=== PATIENT | male | born 1940 | race Caucasian/White ===

== ENCOUNTER 2016-12-01 10:38 | Inpatient (IN) | payer MEDICARE, OTHER ==
[2016-12-01] MEDS ORDERED: Melatonin 3 MG Tab PO PRN (15:42)
--- NOTE | 2016-12-01 16:06 | PCM.HP ---
H&P History of Present Illness - General Date of Service: 12/01/16 Source of Information: Patient, Family (), Old records ([facility] chart/EMR), Other (Transfer records from [facility] in [place]) History Limitations: Reports: No Limitations - History of Present Illness Initial Comments - Free Text/Narative: The patient was brought to this facility for admission into our swing bed unit via private automobile by his . Note that the patient is status post revision and irrigation of left total knee arthroplasty on 11/23/16 with only plastic components of the arthroplasty removed and replaced with new hardware per history from the patient. He was discharged from [facility] today after extended hospitalization for aggressive IV antibiotic therapy, including oral rifampin and high-dose IV Ancef. 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 The patient denies any chest pain/pressure, heart flutter , dizziness, orthostasis, orthopnea, diaphoresis, paresthesias, recent decreased exercise tolerance, or any other anginal-type symptoms. No recent history of abdominal pain, heartburn, nausea, diarrhea, melena, gross hematochezia, or any food intolerance, including fatty foods, etc.. The patient also denies any recent fever, cough, wheezing, dyspnea, etc.. He denies any current UTI symptoms, although he did have some problems with urinary retention with Demerol therapy in the above hospitalization. the patient is not having any significant pain at this time. Location: Reports: lower extremity, left Quality: Reports: Same as previous episode Improves with: Reports: Rest Worsens with: Reports: Movement Context: Reports: other (As above) Associated Symptoms: Denies: confusion, chest pain, cough, diaphoresis, fever/ chills, loss of appetite, malaise, nausea/vomiting, rash, seizure, shortness of breath, syncope, weakness - Related Data Allergies/Adverse Reactions: Allergies Allergy/AdvReac Type Severity Reaction Status Date / Time hydroxyzine [From Vistaril] Allergy UNKNOWN Verified 05/05/16 12:16 meperidine [From Demerol] Allergy UNKNOWN Verified 05/05/16 12:16 Home Medications: Home Meds Acetaminophen 2 tab PO BID 05/04/16 [History] Allopurinol [Zyloprim] 0.5 tab PO DAILY 05/04/16 [History] Aspirin [Halfprin] 1 tab PO DAILY 05/04/16 [History] Digoxin 1 tab PO QAM 05/04/16 [History] Ferrous Sulfate 1 tab PO QAM 05/04/16 [History] Insulin Detemir [Levemir Flextouch] 8 units SUBCUT QAM 05/04/16 [History] Metoprolol Tartrate 100 mg PO BID 05/04/16 [History] Penicillin V Potassium 4 tab PO ASDIRECTED 05/04/16 [History] Rosuvastatin [Crestor] 0.5 tab PO BEDTIME 05/04/16 [History] Warfarin [Coumadin] 4 mg PO DAILY@1800 05/05/16 [History] Acetaminophen 650 mg PO Q4HR PRN 12/01/16 [History] Aspirin [Ecotrin] 325 mg PO [id number] 12/01/16 [History] Cholecalciferol (Vitamin D3) [Vitamin D3] 2,000 units PO DAILY 12/01/16 [History ] Cholestyramine/Sucrose [Cholestyramine Packet] 4 gm PO DAILY 12/01/16 [History] Diltiazem [Cardizem CD] 180 mg PO BID 12/01/16 [History] Heparin Sodium,Porcine/PF [Heparin Lock Flush 100 Unit/ml] 300 unit IV ASDIRECTED PRN 12/01/16 [History] Heparin Sodium,Porcine/PF [Heparin Lock Flush 100 Unit/ml] 300 unit IV Q12HR 06/09 [History] Melatonin/Pyridoxine HCl (B6) [Melatonin 3 mg Tablet] 3 mg PO BEDTIME PRN [History] Non-Formulary Medication [NF Drug] 2 tab PO DAILY 12/01/16 [History] Polyethylene Glycol 3350 17 gm PO QAM 12/01/16 [History] Sennosides/Docusate Sodium [Senna-Docusate Sodium Tablet] 8.6 - 50 mg PO BID PRN 12/01/16 [History] Sodium Chloride 0.9% [Saline Flush] 10 ml FLUSH ASDIRECTED PRN 12/01/16 [History ] Sodium Chloride 0.9% [Saline Flush] 10 ml FLUSH Q12HR 12/01/16 [History] ceFAZolin [Ancef] 2 gm IV Q8HR 12/01/16 [History] traMADol [Ultram] 50 mg PO QID PRN 12/01/16 [History] Past Medical History HEENT History: Reports: Impaired vision, Other (see below). Denies: Allergic rhinitis, Glaucoma, Hard of hearing, Macular degeneration Other HEENT History: No history of diabetic retinopathy, the patient wears trifocals Cardiovascular History: Reports: Afib, Arrhythmia, Heart murmur, High cholesterol, Hypertension, Pulmonary hypertension, PVD, Other (see below). Denies: Aneurysm, Blood clots/VTE/DVT, CAD, Cardiomyopathy, Heart Failure, SD, PTCA, Stents, Syncope Other Cardiovascular History: Borderline aortic stenosis and mitral valve insufficiency with no significant valvular disease by echocardiogram, mild biatrial enlargement with borderline cardiomegaly but no significant cardiac dysfunction, recurrent atrial fibrillation with rapid ventricular response initially diagnosed on 02/13/98 and current long-term Coumadin therapy, idiopathic myositis in about 2004, dyslipidemia, mild carotid occlusive disease , previous history of first degree AV block, PACs, and sinus arrhythmia on Respiratory History: Reports: Intubation, previous. Denies: Asthma, COPD, Intubation, difficult, PE, Pneumothorax, TB Gastrointestinal History: Reports: Colon polyp, GERD, Hiatal hernia, PUD, Other (see below). Denies: Celiac disease, Cholelithiasis, Chronic constipation, Chronic diarrhea, Diverticulosis, Gastritis, GI bleed, Hepatitis, Inflammatory bowel disease, Irritable bowel syndrome, Jaundice, Pancreatitis Other Gastrointestinal History: umbilical hernia, history of diminutive colonic polyp of the proximal ascending colon on 01/31/13 with subsequent small tubular adenomas x2 one in the distal ascending colon and the other at the hepatic flexure on 05/05/16, history of colitis, polyposis of the gallbladder diagnosed on 05/25/99, fatty liver, benign hepatic cysts Genitourinary History: Reports: Acute renal failure (In November 2016 postoperative at time of total knee arthroplasty revision as below), BPH, Chronic renal insuffiency, Diabetic nephropathy, UTI, recurrent, Other (see below). Denies: Dialysis, Renal calculus, STD, Urinary incontinence Other Genitourinary History: Chronic prostatitis with hematuria, transitional cell cancer as below, diabetic nephropathy with proteinuria bilateral benign renal cysts, rectal dysfunction Musculoskeletal History: Reports: Arthritis, Back pain, chronic, Gout, Neck pain , chronic, Osteoarthritis, Other (see below). Denies: Amputation, Fracture, Osteoporosis, RA, SLE Other Musculoskeletal History: Spinal stenosis of lumbar region (L3-4), sternoclavicular joint subluxation (left) on 07/19/01, left ankle fracture at age 21, idiopathic myositis Neurological History: Reports: Neuropathy, diabetic. Denies: Alzheimers disease , Cerebral aneurysms, Concussion, CVA, Headaches, chronic, Head trauma, Migraines, MS, Seizure, TIA Psychiatric History: Reports: None. Denies: Abuse, victim of, ADD, ADHD, Addiction, Anxiety, Dementia, Depression, Psych Hospitalization(s), PTSD, Suicide attempt, Suicidal ideation Endocrine/Metabolic History: Reports: Diabetes, type II, IDDM. Denies: Hypothyroidism Hematologic History: Reports: Anemia, Iron deficiency, Other (see below). Denies: Blood transfusion(s) Immunologic History: Reports: None. Denies: AIDS, HIV, SLE Oncologic (Cancer) History: Reports: Basal cell carcinoma, Bladder, Other (see below). Denies: Hodgkin's Lymphoma, Leukemia, Malignant melanoma, Metastatic, Non-Hodgkin's Lymphoma, Prostate, Squamous cell carcinoma Other Oncologic History: Basal cell carcinoma of helix- right, transitional cell cancer diagnosed on 09/15/08 Dermatologic History: Denies: Eczema, Psoriasis - Infectious Disease History Infectious Disease History: Reports: Chicken pox, Measles, Other (see below). Denies: C-difficile, Meningitis, Mononucleosis, MRSA, Mumps, Pertussis ( whooping cough), Rheumatic Fever, Rubella, Scarlet fever, Shingles, TB, VRE Other Infectious Disease History: Recurrent postoperative MSSA including sepsis as above - Past Surgical History Head Surgeries/Procedures: Reports: None. Denies: Craniotomy, Shunt HEENT Surgical History: Reports: Adenoidectomy, Oral surgery, Tonsillectomy, Other (see below). Denies: Cataract surgery, Eye surgery, Laser surgery, LASIK , Myringotomy w tube(s), Naso-sinus surgery Other HEENT Surgeries/Procedures: Right upper dental implant, tonsillectomy and adenoidectomy as a child Cardiovascular Surgical History: Reports: None. Denies: Varicose, Vascular surgery Respiratory Surgical History: Reports: None GI Surgical History: Reports: Appendectomy, Colonoscopy, Polypectomy, Other ( see below). Denies: EGD, Hernia, abdominal, Hernia, inguinal, Hernia repair/ other Other GI Surgeries/Procedures: Last colonoscopy on 05/05/16 with polypectomy of tubular adenomas x2 as above, previous Colonoscopy on 01/31/13 with polypectomy as above, appendectomy in 1972 Other Female Surgeries/Procedures: Cystoscopy with bladder biopsy on 10/08/08 Male Surgical History: Reports: Other (see below) Other Male Surgeries/Procedures: Cystoscopy and bladder biopsy on 10/08/08 Endocrine Surgical History: Reports: None Neurological Surgical History: Reports: Discectomy, Lumbar spine, Other (see below). Denies: Spinal fusion, Vertebroplasty Other Neurological Surgeries/Procedures: L3-4 decompression on 02/05/04 Musculoskeletal Surgical History: Reports: Arthroscopic procedure, Joint replacement, Knee replacement, Shoulder surgery, Other (see below). Denies: Carpal tunnel, Ganglion cyst, ORIF Other Musculoskeletal Surgeries/Procedures:: Bilateral knee arthroscopic evaluations initially in September 1997 and then in June 1998, subsequent to bilateral TKA on 12/07/07, subsequent complete 2 stage left TKA revision in April 2009 secondary to refractory MSSA infection with repeat TKA partial revision and irrigation of plastic components only on 11/23/12, initial arthroscopic with conversion to open right shoulder rotator cuff repair on Oncologic Surgical History: Reports: None Dermatological Surgical History: Reports: None - Past Imaging History Past Imaging History: Reports: Cardiac echo (Last thoracic echocardiogram on 11/23 with findings as above and an ejection fraction of 60%, subsequent transesophageal echocardiogram on 11/28/16 with findings not available), Mammogram (10/01/09), Other (see below) (IVP on 09/29/08) Social & Family History - Family History Cardiac: Reports: Arrhythmia, Bypass, CAD, High cholesterol, Hypertension, SD, Other (see below). Denies: Aneurysm, Blood clots/VTE/DVT, PVD/COD Other Cardiac Family History: Father from an SD at age 69, mother with unknown type of cardiac arrhythmia, sister with CABG in her 60s, hypertension in sister, mother with hyperlipidemia GI: Reports: GERD, Other (see below) Other GI Family History: Brother and sister with GERD : Reports: Renal disease/insufficiency, Other (see below) Other Family History: Sister and nephew with benign hematuria Endocrine/Metabolic: Reports: Diabetes, type II, IDDM, Other (see below) Other Endocrine/Metabolic Family History: Brother and sister with IDDM, parents with AODM Oncologic: Reports: Bone, Other (see below) Other Oncologic Family History: Maternal aunt with unknown type of fatal cancer possibly bone cancer in her 50s, maternal cousin with fatal stomach cancer in his 50s, brother with colon cancer at age 58 - Tobacco Use Smoking Status *Q: Never Smoker Smoking Cessation Information Provided To Patient: No Second Hand Smoke Exposure: No Second Hand Smoke Education Provided: No - Caffeine Use Caffeine Use: Reports: Soda (One soda per day, one glass of ice tea per day), Tea. Denies: Coffee, Energy drinks - Alcohol Use Alcohol Use History: Yes Days Per Week of Alcohol Use: 2 (No previous DWIs, problems with alcohol abuse, etc.) Number of Drinks Per Day: 2 (Usually beer) Total Drinks Per Week: 4 Alcohol Use in Last Twelve Months: Yes Alcohol Use Frequency: Socially - Recreational Drug Use Recreational Drug Use: No Drug Use in Last 12 Months: No Recreational Drug Type: Denies: Amphetamines (Speed), Cocaine, Heroin, Inhalants (Glues, Solvents, Aerosols), LSD (Acid), Marijuana/Hashish, Methamphetamine, Morphine - Living Situation & Occupation Living situation: Reports: (1964, 4 children), with family () 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 Denies: Fever, Chills, Weakness, Fatigue, Night Sweats, Diaphoresis, Decreased Appetite, Weight Loss, Weight Gain HEENT: Reports: Glasses. Denies: Dysphasia, Ear Pain, Eye Pain, Headaches, Hearing Changes, Rhinitis, Post Nasal Drip, Sinus Congestion, Vertigo, Visual Changes Pulmonary: Reports: No Symptoms. Denies: Shortness of Breath, Wheezing, Pleuritic Chest Pain, Cough Cardiovascular: Reports: No Symptoms. Denies: Chest Pain, Palpitations, Dyspnea on Exertion, Orthopnea, Edema, Lightheadedness, Syncope, Claudication, Blood Pressure Problem Gastrointestinal: Reports: No Symptoms, Other (Bowel movement yesterday by his history ). Denies: Abdominal Pain, Anorexia, Black Stool, Bloody Stool, Constipation, Diarrhea, Decreased Appetite, Difficulty Swallowing, Hematemesis, Hematochezia, Melena, Nausea, Stool Incontinence, Vomiting Genitourinary: Reports: No Symptoms. Denies: Dysuria, Frequency, Burning, Pain , Urgency, Incontinence, Hematuria, Discharge, Retention, Flank Pain Musculoskeletal: Reports: Joint Pain (Left knee pain-postoperative), Joint Swelling (Left knee). Denies: Neck Pain, Shoulder Pain, Arm Pain, Back Pain, Leg Pain, Muscle Pain, Muscle Stiffness Skin: Reports: Bruising, Wound (Surgical site left knee). Denies: Cyanosis, Pallor, Diaphoresis, Pruritis, Rash Psychiatric: Reports: No Symptoms. Denies: Confusion, Depression, Anxiety, Agitation, Hallucinations Neurological: Reports: Difficulty Walking (Secondary to knee pain and surgery). Denies: Confusion, Dizziness, Numbness, Paresthesia, Tingling, Trouble Speaking, Weakness, Change in Speech, Gait Disturbance Hematologic/Lymphatic: Reports: No Symptoms, Other (Note Coumadin therapy). Denies: Anemia, Easy Bleeding, Easy Bruising Immunologic: Reports: No Symptoms Exam - Exam Exam: See Below - Vital Signs Vital Signs: Last Vital Signs Temp 37.3 C 12/01/16 15:12 Pulse 98 12/01/16 15:12 Resp 20 12/01/16 15:12 BP 142/78 H 12/01/16 15:12 Pulse Ox 96 12/01/16 15:12 Weight: 99.337 kg - Exam Quality Assessment: Central Line/PICC (PIC line in right antecubital region), DVT Prophylaxis. No: Supplemental Oxygen, Urinary Catheter, Skin Breakdown, Restraints General: Alert, Oriented, Cooperative HEENT: Conjunctiva Clear, EACs Clear, EOMI, Hearing Intact, Mucosa Moist & [place] , Nares Patent, Normal Nasal Septum, Posterior Pharynx Clear, Pupils Equal, Pupils Reactive, TMs Clear, Glasses, PERRLA Neck: Supple, Trachea Midline, Full Range of Motion, Carotid Bruit (Mild bilateral carotid bruits versus transmitted heart sounds). No: Lymphadenopathy , Thyromegaly Lungs: Clear to Auscultation, Normal Respiratory Effort. No: Rales, Rub Cardiovascular: Regular Rate, Irregular Rhythm, Systolic Murmur (Mild 1/6 ROMÁN at the aortic and mitral valves). No: Rubs, Gallop/S3, Gallop/S4 Abdomen: Normal Bowel Sounds, Soft, Pelvis Stable, Other (Mild abdominal ecchymosis secondary to previous Lovenox injections). No: Guarding (Male) Exam: Deferred Rectal (Males) Exam: Deferred Back Exam: Normal Inspection, Full Range of Motion. No: CVA Tenderness (L), CVA Tenderness (R), Muscle Spasm Extremities: Normal Pulses, Other (Large operative site over the left knee with Steri-Strips and Dermabond in place, no significant local warming, erythema, discharge, etc., moderate left knee effusion typical for postoperative changes, no lymphangitis, etc.). No: Calf Tenderness, Edema, Increased Warmth Peripheral Pulses: 2+: Radial (L), Radial (R), Dorsalis Pedis (L), Dorsalis Pedis (R) Skin: Warm, Dry, Ecchymosis (As above including mild at the operative site), Incision (As above). No: Rash, Petechia Neurological: Cranial Nerves Intact, Reflexes Equal Bilateral. No: Babinski Neuro Extensive - Mental Status: Alert, Oriented x3, Normal Mood/Affect, Normal Cognition, Memory Intact Psychiatric: Alert, Normal Affect, Normal Mood *Q Meaningful Use (ADM) - VTE *Q VTE Criteria *Q: - Stroke *Q Stroke Criteria *Q: - AMI *Q AMI Criteria *Q: - Problem List (1) Left knee pain SNOMED Code(s): 85441156 ICD Code: M25.562 - PAIN IN LEFT KNEE Status: Acute Priority: High Current Visit: Yes Onset Date: ~11/23/16 Problem Details: Note recent repeat left TKA revision as above. Orthopedic followup appointments have already been scheduled at on 12/06 and 12/20/16 with additional infectious disease consultation and appointment in that facility on . Note recurrent MSSA, including recent sepsis, with additional orders received from infectious disease. Continue aggressive oral rifampin and IV Ancef therapy with commended treatment until 01/04/17. Pain under good control despite significant history as above. [facility] physician will follow blood work during the weekend and reevaluate the patient on 12/05. I will resume the patient's care on 12/12 when I return from vacation Qualifiers: Chronicity: chronic Qualified Code(s): M25.562 - Pain in left knee; G89.29 - Other chronic pain (2) Osteoarthritis SNOMED Code(s): 730350943 ICD Code: M19.90 - UNSPECIFIED OSTEOARTHRITIS, UNSPECIFIED SITE Status: Chronic Priority: Medium Current Visit: Yes Problem Details: Osteoarthritis otherwise stable by history. Note history of gout Qualifiers: Osteoarthritis location: multiple joints (3) Atrial fibrillation SNOMED Code(s): 47297761 ICD Code: I48.91 - UNSPECIFIED ATRIAL FIBRILLATION Status: Acute Priority : High Current Visit: Yes Problem Details: History of recurrent and chronic atrial fibrillation with rapid ventricular response with previous on term Coumadin therapy. Coumadin therapy will be continued as before secondary to his recurrent atrial fibrillation despite discontinuation instructions received from the orthopedic surgeon today. INR subtherapeutic at 1.2 today with patient and given 7.5 milligrams loading dose of Coumadin this morning prior to transfer. Daily PT/INR until INR has stabilized with further instructions from primer press operator physician. Blood work has been ordered for tomorrow, 12/05, and . Therapeutic digoxin level to be drawn today with results pending Qualifiers: Atrial fibrillation type: chronic Qualified Code(s): I48.2 - Chronic atrial fibrillation (4) IDDM (insulin dependent diabetes mellitus) SNOMED Code(s): 10495399 ICD Code: E11.9 - TYPE 2 DIABETES MELLITUS WITHOUT COMPLICATIONS; Z79.4 - PRISON (CURRENT) USE OF INSULIN Status: Chronic Priority: Medium Current Visit: Yes Problem Details: IDDM with diabetic nephropathy and neuropathy with initial 4 times a day Accu-Cheks and sliding scale. Further instructions from primer press operator physicians once blood sugars stabilize. (5) Renal insufficiency SNOMED Code(s): 602472796, 183335020 ICD Code: N28.9 - DISORDER OF KIDNEY AND URETER, UNSPECIFIED Status: Acute Priority: High Current Visit: Yes Problem Details: Recent acute renal failure secondary to sepsis with no history of chronic diabetic nephropathy and proteinuria. Blood work has been ordered as above (6) Dyslipidemia SNOMED Code(s): 225688463 ICD Code: E78.5 - HYPERLIPIDEMIA, UNSPECIFIED Status: Chronic Priority: Medium Current Visit: Yes Problem Details: Known dyslipidemia currently under therapy Problem List Initiated/Reviewed/Updated: Yes Orders Last 24hrs: Active Orders 24 hr Category Date Time Status Antiembolic Devices [RC] .Routine Care 12/01/16 15:42 Ordered Antiembolic Devices [RC] PER UNIT ROUTINE Care 12/01/16 15:42 Ordered Blood Glucose Check, Bedside [RC] QIDACANDBED Care 12/01/16 17:00 Ordered Communication Order [RC] ROUTINE Care 12/01/16 15:38 Ordered Communication Order [RC] ROUTINE Care 12/01/16 15:49 Ordered Communication Order [RC] ROUTINE Care 12/01/16 15:50 Ordered Communication Order [RC] ROUTINE Care 12/01/16 15:51 Ordered Communication Order [RC] ROUTINE Care 12/01/16 16:01 Ordered Oxygen Therapy [RC] ASDIRECTED Care 12/01/16 15:40 Ordered Up With Assistance [RC] ASDIRECTED Care 12/01/16 15:41 Ordered VTE/DVT Education [RC] PER UNIT ROUTINE Care 12/01/16 15:42 Ordered Vaccines to be Administered [RC] PER UNIT ROUTINE Care 12/01/16 15:42 Ordered Vital Signs [RC] QSHIFT Care 12/01/16 15:42 Ordered OT Evaluation and Treatment [CONS] Routine Cons 12/01/16 15:40 Active PT Evaluation and Treatment [CONS] Routine Cons 12/01/16 16:05 Ordered Heart Healthy Diet [DIET] Diet 12/01/16 Lunch Ordered CBC WITH AUTO DIFF [HEME] Routine Lab 12/02/16 05:11 Ordered CBC WITH AUTO DIFF [HEME] Routine Lab 12/05/16 05:11 Ordered CBC WITH AUTO DIFF [HEME] Routine Lab 12/12/16 05:11 Ordered COMPREHENSIVE METABOLIC PN,CMP [CHEM] Routine Lab 12/02/16 05:11 Ordered COMPREHENSIVE METABOLIC PN,CMP [CHEM] Routine Lab 12/12/16 05:11 Ordered DIGOXIN [CHEM] Routine Lab 12/01/16 15:56 Ordered INR,PT,PROTHROMBIN TIME [COAG] Routine Lab 12/02/16 05:11 Ordered INR,PT,PROTHROMBIN TIME [COAG] Routine Lab 12/03/16 05:11 Ordered INR,PT,PROTHROMBIN TIME [COAG] Routine Lab 12/04/16 05:11 Ordered INR,PT,PROTHROMBIN TIME [COAG] Routine Lab 12/05/16 05:11 Ordered INR,PT,PROTHROMBIN TIME [COAG] Routine Lab 12/12/16 05:11 Ordered Acetaminophen [Tylenol Extra Strength] Med 12/01/16 18:00 Ordered 2 tab PO BID Acetaminophen [Tylenol] Med 12/01/16 15:42 Ordered 650 mg PO Q4HR PRN Allopurinol [Zyloprim] Med 12/02/16 08:00 Ordered 0.5 tab PO DAILY Aspirin [Ecotrin] Med 12/01/16 15:45 Ordered 325 mg PO [id number] Cholecalciferol (Vitamin D3) [Vitamin D3] Med 12/02/16 08:00 Ordered 2,000 units PO DAILY Cholestyramine/Sucrose [Cholestyramine Packet] Med 12/02/16 08:00 Ordered 4 gm PO DAILY Digoxin [Lanoxin] Med 12/02/16 08:00 Ordered 1 tab PO QAM Diltiazem [Cardizem CD] Med 12/01/16 18:00 Ordered 180 mg PO BID Docusate Sodium/Sennosides [Senna Plus] Med 12/01/16 15:45 Ordered 8.6 - 50 mg PO BID PRN Ferrous Sulfate Med 12/02/16 08:00 Ordered 1 tab PO QAM Heparin Sodium,Porcine/PF [Heparin Lock Flush 100 Unit/ Med 12/01/16 15:42 Ordered ml] 300 unit IV ASDIRECTED PRN Heparin Sodium,Porcine/PF [Heparin Lock Flush 100 Unit/ Med 12/01/16 20:00 Ordered ml] 300 unit IV Q12HR Insulin Aspart [NovoLOG] Med 12/01/16 17:00 Ordered See Protocol SUBCUT ACBED Insulin Detemir [Levemir] Med 12/02/16 08:00 Ordered 8 unit SUBCUT QAM Melatonin/Pyridoxine HCl (B6) [Melatonin 3 mg Tablet] Med 12/01/16 15:42 Ordered 3 mg PO BEDTIME PRN Metoprolol Tartrate [Lopressor] Med 12/01/16 18:00 Ordered 100 mg PO BID Non-Formulary Medication [NF Drug] Med 12/02/16 08:00 Ordered 2 tab PO DAILY Polyethylene Glycol 3350 [MiraLAX] Med 12/02/16 08:00 Ordered 17 gm PO QAM Rosuvastatin [Crestor] Med 12/01/16 20:00 Ordered 0.5 tab PO BEDTIME Sodium Chloride 0.9% [Saline Flush] Med 12/01/16 15:42 Ordered 10 ml FLUSH ASDIRECTED PRN Sodium Chloride 0.9% [Saline Flush] Med 12/01/16 20:00 Ordered 10 ml FLUSH Q12HR Warfarin Med 12/02/16 18:00 Ordered 4 mg PO DAILY@1800 ceFAZolin [Ancef] Med 12/01/16 16:00 Ordered 2 gm IV Q8HR traMADol [Ultram] Med 12/01/16 15:42 Ordered 50 mg PO QID PRN Anti-Embolism Stockings [place] [Antiembolic Hose] [OM.PC] Oth 12/01/16 15:37 Ordered Routine DVT/VTE Prophylaxis Reflex [OM.PC] Routine Oth 12/01/16 15:38 Ordered GM Immunization Reflex [OM.PC] Click To Edit Ot 12/01/16 15:38 Ordered Resuscitation Status Routine Resus Stat 12/01/16 15:37 Ordered Medication Orders Acetaminophen (Tylenol) 650 mg PO Q4HR PRN PRN Reason: Pain (mild 1-3) Acetaminophen (Tylenol Extra Strength) mg PO BID [facility] Aspirin (Ecotrin) 325 mg PO [id number] PILAR Cefazolin Sodium (Ancef) 2 gm IV Q8HR [facility] Cholecalciferol (Vitamin D3) 2,000 units PO DAILY [facility] Cholestyramine Resin (Cholestyramine Packet) 4 gm PO DAILY [facility] Digoxin (Lanoxin) mcg PO QAM PILAR Diltiazem HCl (Cardizem Cd) 180 mg PO BID [facility] Ferrous Sulfate (Ferrous Sulfate) mg PO QAM [facility] Insulin Aspart (Novolog) 0 unit SUBCUT ACBED PILAR PRN Reason: Protocol Insulin Detemir (Levemir) 8 unit SUBCUT QAM [facility] Metoprolol Tartrate (Lopressor) 100 mg PO BID [facility] Non-Formulary Medication (Allopurinol [Zyloprim]) 0.5 tab PO DAILY [facility] Non-Formulary Medication (Heparin Sodium,Porcine/Pf [Heparin Lock Flush 100 Unit /Ml]) 300 unit IV ASDIRECTED PRN PRN Reason: Keep Vein Open Non-Formulary Medication (Heparin Sodium,Porcine/Pf [Heparin Lock Flush 100 Unit /Ml]) 300 unit IV Q12HR [facility] Non-Formulary Medication (Melatonin/Pyridoxine Hcl (B6) [Melatonin 3 Mg Tablet] ) 3 mg PO BEDTIME PRN PRN Reason: Insomnia Non-Formulary Medication (Nf Drug) each PO DAILY [facility]ILAR Non-Formulary Medication (Warfarin) 4 mg PO DAILY@1800 [facility] Polyethylene Glycol (Miralax) 17 gm PO QAM [facility] Rosuvastatin Calcium (Crestor) mg PO BEDTIME [facility]ILAR Senna/Docusate Sodium (Senna Plus) tab PO BID PRN PRN Reason: Constipation Sodium Chloride (Saline Flush) 10 ml FLUSH ASDIRECTED PRN PRN Reason: Keep Vein Open Sodium Chloride (Saline Flush) 10 ml FLUSH Q12HR [facility] Tramadol HCl (Ultram) 50 mg PO QID PRN PRN Reason: Pain (moderate 4-6) Assessment/Plan Comment:: As above. 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 Extensive precautions were given to the patient and his , who are in agreement with the treatment plan.
[2016-12-01] MEDS: Aspirin 325 MG Tab.EC PO SCH ×2 (17:42→17:43)
[2016-12-01] MEDS: ceFAZolin 1 GM Vial IV SCH ×2 (17:43→23:04)
[2016-12-01] MEDS: Insulin Aspart 100 Units/ML 3 ML Pen SUBCUT SCH ×3 (17:49→20:30)
[2016-12-01] MEDS ORDERED: Non-Formulary Medication 1 Each (Warfarin 4 MG) PO SCH (18:00)
[2016-12-01] MEDS: Diltiazem 180 MG Cap.CD PO SCH (18:00)
[2016-12-01] MEDS: Metoprolol Tartrate 50 MG Tab PO SCH (18:00)
[2016-12-01] MEDS: Acetaminophen 500 MG Tab PO SCH (18:01)
[2016-12-01] MEDS: traMADol 50 MG Tab PO PRN ×2 (18:02→22:55)
[2016-12-01] MEDS: Sodium Chloride 0.9% 10 ML Syringe FLUSH PRN ×2 (18:22→23:05)
[2016-12-01] MEDS: Rosuvastatin 10 MG Tab PO SCH (20:26)
[2016-12-01] MEDS: Sodium Chloride 0.9% 10 ML Syringe FLUSH SCH (20:27)
[2016-12-01] MEDS: Acetaminophen 325 MG Tab PO PRN (22:55)
[2016-12-02] MEDS ORDERED: Polyethylene Glycol 3350 Powder 238 GM Bot PO SCH (08:00)
[2016-12-02] MEDS: Insulin Aspart 100 Units/ML 3 ML Pen SUBCUT SCH ×4 (08:08→20:50)
[2016-12-02] MEDS ORDERED: Polyethylene Glycol 3350 Powder 510 GM Bot PO SCH (09:25)
[2016-12-02] MEDS: Diltiazem 180 MG Cap.CD PO SCH ×2 (09:37→18:01)
[2016-12-02] MEDS: Cholestyramine/Sucrose Powder 4 GM Packet PO SCH (09:38)
[2016-12-02] MEDS: Digoxin 250 MCG Tab PO SCH (09:39)
[2016-12-02] MEDS: Aspirin 325 MG Tab.EC PO SCH ×2 (09:39→18:03)
[2016-12-02] MEDS: Ferrous Sulfate 325 MG Tab PO SCH (09:39)
[2016-12-02] MEDS: Insulin Detemir 100 Units/ML 3 ML Pen SUBCUT SCH (09:41)
[2016-12-02] MEDS: Metoprolol Tartrate 50 MG Tab PO SCH ×2 (09:42→18:04)
[2016-12-02] MEDS: Acetaminophen 500 MG Tab PO SCH ×2 (09:44→18:04)
[2016-12-02] MEDS: RIFAMPIN 300MG CAPSULE PO SCH (09:44)
[2016-12-02] MEDS: Cholecalciferol (Vitamin D3) 1,000 Unit Tab PO SCH (09:45)
[2016-12-02] MEDS: Allopurinol 100 MG Tab PO SCH (09:45)
[2016-12-02] MEDS: traMADol 50 MG Tab PO PRN ×2 (09:55→22:36)
[2016-12-02] MEDS: Sodium Chloride 0.9% 10 ML Syringe FLUSH SCH ×2 (10:07→20:59)
[2016-12-02] MEDS: ceFAZolin 1 GM Vial IV SCH ×3 (10:07→23:49)
[2016-12-02] MEDS: Polyethylene Glycol 3350 Powder 510 GM Bot PO SCH (10:42)
[2016-12-02] MEDS: Sodium Chloride 0.9% 10 ML Syringe FLUSH PRN ×3 (16:47→23:55)
[2016-12-02] MEDS ORDERED: Warfarin 2 MG Tab PO ONE (18:00)
[2016-12-02] MEDS: Warfarin 2 MG Tab PO SCH (18:03)
[2016-12-02] MEDS: Rosuvastatin 10 MG Tab PO SCH (20:56)
[2016-12-02] MEDS: Acetaminophen 325 MG Tab PO PRN (22:37)
[2016-12-03] MEDS: Acetaminophen 325 MG Tab PO PRN ×2 (06:09→21:07)
[2016-12-03] MEDS: Insulin Aspart 100 Units/ML 3 ML Pen SUBCUT SCH ×2 (08:19→11:35)
[2016-12-03] MEDS: Cholestyramine/Sucrose Powder 4 GM Packet PO SCH (08:29)
[2016-12-03] MEDS: Diltiazem 180 MG Cap.CD PO SCH ×2 (08:29→17:57)
[2016-12-03] MEDS: Ferrous Sulfate 325 MG Tab PO SCH (08:30)
[2016-12-03] MEDS: Aspirin 325 MG Tab.EC PO SCH ×2 (08:30→17:58)
[2016-12-03] MEDS: Insulin Detemir 100 Units/ML 3 ML Pen SUBCUT SCH (08:31)
[2016-12-03] MEDS: Polyethylene Glycol 3350 Powder 510 GM Bot PO SCH (08:32)
[2016-12-03] MEDS: Acetaminophen 500 MG Tab PO SCH ×2 (08:33→17:59)
[2016-12-03] MEDS: RIFAMPIN 300MG CAPSULE PO SCH (08:33)
[2016-12-03] MEDS: Cholecalciferol (Vitamin D3) 1,000 Unit Tab PO SCH (08:34)
[2016-12-03] MEDS: Allopurinol 100 MG Tab PO SCH (08:35)
[2016-12-03] MEDS: Metoprolol Tartrate 50 MG Tab PO SCH ×2 (08:43→18:00)
[2016-12-03] MEDS: Digoxin 250 MCG Tab PO SCH (08:45)
[2016-12-03] MEDS: Sodium Chloride 0.9% 10 ML Syringe FLUSH SCH ×2 (08:49→19:57)
[2016-12-03] MEDS: ceFAZolin 1 GM Vial IV SCH ×2 (08:53→16:20)
[2016-12-03] MEDS: Sodium Chloride 0.9% 10 ML Syringe FLUSH PRN ×4 (09:17→16:49)
[2016-12-03] MEDS ORDERED: Warfarin 2 MG Tab PO ONE ×2 (13:11→13:21)
[2016-12-03] MEDS: traMADol 50 MG Tab PO PRN ×2 (15:06→21:06)
[2016-12-03] MEDS: Warfarin 2 MG Tab PO SCH (17:58)
[2016-12-03] MEDS: Rosuvastatin 10 MG Tab PO SCH (19:57)
[2016-12-04] MEDS: Sodium Chloride 0.9% 10 ML Syringe FLUSH PRN ×6 (00:04→23:34)
[2016-12-04] MEDS: ceFAZolin 1 GM Vial IV SCH ×4 (00:05→23:34)
[2016-12-04] MEDS: Diltiazem 180 MG Cap.CD PO SCH ×2 (08:14→17:37)
[2016-12-04] MEDS: Cholestyramine/Sucrose Powder 4 GM Packet PO SCH (08:14)
[2016-12-04] MEDS: Aspirin 325 MG Tab.EC PO SCH ×2 (08:16→17:39)
[2016-12-04] MEDS: Ferrous Sulfate 325 MG Tab PO SCH (08:16)
[2016-12-04] MEDS: Digoxin 250 MCG Tab PO SCH (08:20)
[2016-12-04] MEDS: Insulin Detemir 100 Units/ML 3 ML Pen SUBCUT SCH (08:21)
[2016-12-04] MEDS: Metoprolol Tartrate 50 MG Tab PO SCH ×2 (08:22→17:39)
[2016-12-04] MEDS: Polyethylene Glycol 3350 Powder 510 GM Bot PO SCH (08:23)
[2016-12-04] MEDS: RIFAMPIN 300MG CAPSULE PO SCH (08:23)
[2016-12-04] MEDS: Cholecalciferol (Vitamin D3) 1,000 Unit Tab PO SCH (08:24)
[2016-12-04] MEDS: Acetaminophen 500 MG Tab PO SCH ×2 (08:24→17:40)
[2016-12-04] MEDS: Allopurinol 100 MG Tab PO SCH (08:25)
[2016-12-04] MEDS: Sodium Chloride 0.9% 10 ML Syringe FLUSH SCH ×2 (08:47→19:33)
--- NOTE | 2016-12-04 15:06 | PCM.SN ---
- Free Text/Narrative Note: INR theraputic at 2.3 today. Had required additional daily doses of Coumadin over the last two days to help bring to theraputic level. At this point in time daily dose has been changed to 5mg and INR is to be rechecked in 48 hours.
[2016-12-04] MEDS: Warfarin 2 MG Tab PO SCH (17:38)
[2016-12-04] MEDS: traMADol 50 MG Tab PO PRN (17:41)
[2016-12-04] MEDS: Rosuvastatin 10 MG Tab PO SCH (19:33)
[2016-12-04] MEDS: Acetaminophen 325 MG Tab PO PRN (19:34)
[2016-12-05] MEDS: Diltiazem 180 MG Cap.CD PO SCH ×2 (08:09→17:51)
[2016-12-05] MEDS: Cholestyramine/Sucrose Powder 4 GM Packet PO SCH (08:10)
[2016-12-05] MEDS: Ferrous Sulfate 325 MG Tab PO SCH (08:10)
[2016-12-05] MEDS: Aspirin 325 MG Tab.EC PO SCH ×2 (08:10→17:52)
[2016-12-05] MEDS: Digoxin 250 MCG Tab PO SCH (08:11)
[2016-12-05] MEDS: Insulin Detemir 100 Units/ML 3 ML Pen SUBCUT SCH (08:13)
[2016-12-05] MEDS: Metoprolol Tartrate 50 MG Tab PO SCH ×2 (08:14→17:52)
[2016-12-05] MEDS: Polyethylene Glycol 3350 Powder 510 GM Bot PO SCH (08:15)
[2016-12-05] MEDS: RIFAMPIN 300MG CAPSULE PO SCH (08:15)
[2016-12-05] MEDS: Sodium Chloride 0.9% 10 ML Syringe FLUSH SCH ×2 (08:16→20:55)
[2016-12-05] MEDS: Acetaminophen 500 MG Tab PO SCH ×2 (08:16→17:53)
[2016-12-05] MEDS: Cholecalciferol (Vitamin D3) 1,000 Unit Tab PO SCH (08:17)
[2016-12-05] MEDS: Allopurinol 100 MG Tab PO SCH (08:18)
[2016-12-05] MEDS: ceFAZolin 1 GM Vial IV SCH ×3 (08:20→23:08)
[2016-12-05] MEDS: traMADol 50 MG Tab PO PRN ×2 (08:23→20:56)
[2016-12-05] MEDS: Warfarin 2 MG Tab PO SCH (17:51)
[2016-12-05] MEDS: Rosuvastatin 10 MG Tab PO SCH (20:53)
[2016-12-05] MEDS: Acetaminophen 325 MG Tab PO PRN (20:58)
[2016-12-05] MEDS: Sodium Chloride 0.9% 10 ML Syringe FLUSH PRN (23:08)
[2016-12-06] MEDS: Diltiazem 180 MG Cap.CD PO SCH ×2 (07:42→17:00)
[2016-12-06] MEDS: ceFAZolin 1 GM Vial IV SCH ×3 (07:42→23:12)
[2016-12-06] MEDS: Aspirin 325 MG Tab.EC PO SCH ×2 (07:43→17:01)
[2016-12-06] MEDS: Cholestyramine/Sucrose Powder 4 GM Packet PO SCH (07:43)
[2016-12-06] MEDS: Ferrous Sulfate 325 MG Tab PO SCH (07:43)
[2016-12-06] MEDS: Digoxin 250 MCG Tab PO SCH (07:44)
[2016-12-06] MEDS: Insulin Detemir 100 Units/ML 3 ML Pen SUBCUT SCH (07:45)
[2016-12-06] MEDS: RIFAMPIN 300MG CAPSULE PO SCH (07:48)
[2016-12-06] MEDS: Polyethylene Glycol 3350 Powder 510 GM Bot PO SCH (07:48)
[2016-12-06] MEDS: Metoprolol Tartrate 50 MG Tab PO SCH ×2 (07:48→17:01)
[2016-12-06] MEDS: Acetaminophen 500 MG Tab PO SCH ×2 (07:50→17:02)
[2016-12-06] MEDS: Sodium Chloride 0.9% 10 ML Syringe FLUSH SCH ×2 (07:50→20:13)
[2016-12-06] MEDS: Cholecalciferol (Vitamin D3) 1,000 Unit Tab PO SCH (07:51)
[2016-12-06] MEDS: Allopurinol 100 MG Tab PO SCH (07:52)
[2016-12-06] MEDS: traMADol 50 MG Tab PO PRN ×3 (07:52→23:19)
[2016-12-06] MEDS: Warfarin 2 MG Tab PO SCH (17:01)
[2016-12-06] MEDS: Rosuvastatin 10 MG Tab PO SCH (20:12)
[2016-12-06] MEDS: Sodium Chloride 0.9% 10 ML Syringe FLUSH PRN (23:13)
[2016-12-07] MEDS: ceFAZolin 1 GM Vial IV SCH ×2 (08:07→15:54)
[2016-12-07] MEDS: Aspirin 325 MG Tab.EC PO SCH ×2 (08:08→17:09)
[2016-12-07] MEDS: Diltiazem 180 MG Cap.CD PO SCH ×2 (08:08→17:08)
[2016-12-07] MEDS: Cholestyramine/Sucrose Powder 4 GM Packet PO SCH (08:08)
[2016-12-07] MEDS: Digoxin 250 MCG Tab PO SCH (08:09)
[2016-12-07] MEDS: Ferrous Sulfate 325 MG Tab PO SCH (08:09)
[2016-12-07] MEDS: Insulin Detemir 100 Units/ML 3 ML Pen SUBCUT SCH (08:11)
[2016-12-07] MEDS: Polyethylene Glycol 3350 Powder 510 GM Bot PO SCH (08:13)
[2016-12-07] MEDS: Metoprolol Tartrate 50 MG Tab PO SCH ×2 (08:13→17:10)
[2016-12-07] MEDS: RIFAMPIN 300MG CAPSULE PO SCH (08:14)
[2016-12-07] MEDS: Acetaminophen 500 MG Tab PO SCH ×2 (08:15→17:10)
[2016-12-07] MEDS: Sodium Chloride 0.9% 10 ML Syringe FLUSH SCH ×2 (08:15→19:43)
[2016-12-07] MEDS: Cholecalciferol (Vitamin D3) 1,000 Unit Tab PO SCH (08:16)
[2016-12-07] MEDS: Allopurinol 100 MG Tab PO SCH (08:17)
[2016-12-07] MEDS: traMADol 50 MG Tab PO PRN ×2 (09:39→22:29)
[2016-12-07] MEDS: Sodium Chloride 0.9% 10 ML Syringe FLUSH PRN (15:56)
[2016-12-07] MEDS: Warfarin 2 MG Tab PO SCH (17:09)
[2016-12-07] MEDS: Rosuvastatin 10 MG Tab PO SCH (19:40)
[2016-12-08] MEDS: Sodium Chloride 0.9% 10 ML Syringe FLUSH PRN ×5 (00:15→15:45)
[2016-12-08] MEDS: ceFAZolin 1 GM Vial IV SCH ×3 (00:16→15:44)
[2016-12-08] MEDS: Diltiazem 180 MG Cap.CD PO SCH ×2 (08:19→17:33)
[2016-12-08] MEDS: Cholestyramine/Sucrose Powder 4 GM Packet PO SCH (08:19)
[2016-12-08] MEDS: Ferrous Sulfate 325 MG Tab PO SCH (08:20)
[2016-12-08] MEDS: Aspirin 325 MG Tab.EC PO SCH ×2 (08:20→17:35)
[2016-12-08] MEDS: Digoxin 250 MCG Tab PO SCH (08:21)
[2016-12-08] MEDS: Insulin Detemir 100 Units/ML 3 ML Pen SUBCUT SCH (08:40)
[2016-12-08] MEDS: Metoprolol Tartrate 50 MG Tab PO SCH ×2 (08:42→17:36)
[2016-12-08] MEDS: Polyethylene Glycol 3350 Powder 510 GM Bot PO SCH (08:43)
[2016-12-08] MEDS: RIFAMPIN 300MG CAPSULE PO SCH (08:43)
[2016-12-08] MEDS: Acetaminophen 500 MG Tab PO SCH ×2 (08:45→17:36)
[2016-12-08] MEDS: Cholecalciferol (Vitamin D3) 1,000 Unit Tab PO SCH (08:45)
[2016-12-08] MEDS: Allopurinol 100 MG Tab PO SCH (08:47)
[2016-12-08] MEDS: Sodium Chloride 0.9% 10 ML Syringe FLUSH SCH ×2 (08:48→19:44)
[2016-12-08] MEDS: Warfarin 2 MG Tab PO SCH (17:34)
[2016-12-08] MEDS: Rosuvastatin 10 MG Tab PO SCH (19:42)
[2016-12-08] MEDS: traMADol 50 MG Tab PO PRN (20:49)
[2016-12-09] MEDS: Sodium Chloride 0.9% 10 ML Syringe FLUSH PRN ×5 (00:08→16:00)
[2016-12-09] MEDS: ceFAZolin 1 GM Vial IV SCH ×3 (00:08→15:58)
[2016-12-09] MEDS: Diltiazem 180 MG Cap.CD PO SCH ×2 (08:05→17:47)
[2016-12-09] MEDS: Cholestyramine/Sucrose Powder 4 GM Packet PO SCH (08:05)
[2016-12-09] MEDS: Ferrous Sulfate 325 MG Tab PO SCH (08:06)
[2016-12-09] MEDS: Aspirin 325 MG Tab.EC PO SCH ×2 (08:06→17:49)
[2016-12-09] MEDS: Digoxin 250 MCG Tab PO SCH (08:07)
[2016-12-09] MEDS: Insulin Detemir 100 Units/ML 3 ML Pen SUBCUT SCH (08:07)
[2016-12-09] MEDS: RIFAMPIN 300MG CAPSULE PO SCH (08:09)
[2016-12-09] MEDS: Metoprolol Tartrate 50 MG Tab PO SCH ×2 (08:09→17:49)
[2016-12-09] MEDS: Cholecalciferol (Vitamin D3) 1,000 Unit Tab PO SCH (08:10)
[2016-12-09] MEDS: Acetaminophen 500 MG Tab PO SCH ×2 (08:10→17:49)
[2016-12-09] MEDS: Allopurinol 100 MG Tab PO SCH (08:11)
[2016-12-09] MEDS: Sodium Chloride 0.9% 10 ML Syringe FLUSH SCH (08:45)
[2016-12-09] MEDS: Polyethylene Glycol 3350 Powder 510 GM Bot PO SCH (09:27)
[2016-12-09] MEDS: Warfarin 2 MG Tab PO SCH (17:48)
[2016-12-09] MEDS: traMADol 50 MG Tab PO PRN (20:47)
[2016-12-09] MEDS: Rosuvastatin 10 MG Tab PO SCH (20:47)
[2016-12-09] MEDS: Acetaminophen 325 MG Tab PO PRN (20:48)
[2016-12-10] MEDS: Sodium Chloride 0.9% 10 ML Syringe FLUSH SCH ×4 (00:22→23:33)
[2016-12-10] MEDS: ceFAZolin 1 GM Vial IV SCH ×4 (00:23→23:32)
[2016-12-10] MEDS: Aspirin 325 MG Tab.EC PO SCH ×2 (07:39→17:35)
[2016-12-10] MEDS: Cholestyramine/Sucrose Powder 4 GM Packet PO SCH (07:39)
[2016-12-10] MEDS: Diltiazem 180 MG Cap.CD PO SCH ×2 (07:39→17:35)
[2016-12-10] MEDS: Ferrous Sulfate 325 MG Tab PO SCH (07:40)
[2016-12-10] MEDS: Insulin Detemir 100 Units/ML 3 ML Pen SUBCUT SCH (07:41)
[2016-12-10] MEDS: Digoxin 250 MCG Tab PO SCH (07:41)
[2016-12-10] MEDS: Polyethylene Glycol 3350 Powder 510 GM Bot PO SCH (07:43)
[2016-12-10] MEDS: Metoprolol Tartrate 50 MG Tab PO SCH ×2 (07:43→17:36)
[2016-12-10] MEDS: RIFAMPIN 300MG CAPSULE PO SCH (07:44)
[2016-12-10] MEDS: Acetaminophen 500 MG Tab PO SCH ×2 (07:45→17:36)
[2016-12-10] MEDS: Cholecalciferol (Vitamin D3) 1,000 Unit Tab PO SCH (07:46)
[2016-12-10] MEDS: Allopurinol 100 MG Tab PO SCH (07:46)
[2016-12-10] MEDS ORDERED: Warfarin 5 MG Tab PO ONE (12:24)
[2016-12-10] MEDS ORDERED: Warfarin 2 MG Tab PO SCH (12:27)
--- NOTE | 2016-12-10 12:38 | PCM.SN ---
- Free Text/Narrative Note: INR subtheraputic today. Will add extra Coumadin dose and increase daily Coumadin dose. Recheck PT/INR tomorrow and Monday.
[2016-12-10] MEDS ORDERED: Warfarin 5 MG Tab PO SCH (18:00)
[2016-12-10] MEDS: Rosuvastatin 10 MG Tab PO SCH (19:38)
[2016-12-10] MEDS: Acetaminophen 325 MG Tab PO PRN (21:02)
[2016-12-10] MEDS: Sodium Chloride 0.9% 10 ML Syringe FLUSH PRN (23:33)
[2016-12-11] MEDS: Sodium Chloride 0.9% 10 ML Syringe FLUSH SCH ×3 (07:05→23:55)
[2016-12-11] MEDS: ceFAZolin 1 GM Vial IV SCH ×3 (07:06→23:54)
[2016-12-11] MEDS: Sodium Chloride 0.9% 10 ML Syringe FLUSH PRN ×2 (07:12→23:55)
[2016-12-11] MEDS: Cholestyramine/Sucrose Powder 4 GM Packet PO SCH (08:10)
[2016-12-11] MEDS: Diltiazem 180 MG Cap.CD PO SCH ×2 (08:10→18:27)
[2016-12-11] MEDS: Ferrous Sulfate 325 MG Tab PO SCH (08:11)
[2016-12-11] MEDS: Aspirin 325 MG Tab.EC PO SCH ×2 (08:11→18:28)
[2016-12-11] MEDS: Digoxin 250 MCG Tab PO SCH (08:12)
[2016-12-11] MEDS: Insulin Detemir 100 Units/ML 3 ML Pen SUBCUT SCH (08:13)
[2016-12-11] MEDS: Metoprolol Tartrate 50 MG Tab PO SCH ×2 (08:14→18:28)
[2016-12-11] MEDS: Polyethylene Glycol 3350 Powder 510 GM Bot PO SCH (08:15)
[2016-12-11] MEDS: RIFAMPIN 300MG CAPSULE PO SCH (08:16)
[2016-12-11] MEDS: Cholecalciferol (Vitamin D3) 1,000 Unit Tab PO SCH (08:17)
[2016-12-11] MEDS: Acetaminophen 500 MG Tab PO SCH ×2 (08:17→18:29)
[2016-12-11] MEDS: Allopurinol 100 MG Tab PO SCH (08:18)
[2016-12-11] MEDS ORDERED: Warfarin 5 MG Tab PO SCH (16:56)
[2016-12-11] MEDS ORDERED: Warfarin 5 MG Tab PO ONE ×2 (16:56→18:35)
[2016-12-11] MEDS: Rosuvastatin 10 MG Tab PO SCH (21:21)
[2016-12-11] MEDS: traMADol 50 MG Tab PO PRN (21:22)
[2016-12-12] MEDS: ceFAZolin 1 GM Vial IV SCH ×3 (07:39→23:33)
[2016-12-12] MEDS: Sodium Chloride 0.9% 10 ML Syringe FLUSH SCH ×3 (07:40→23:34)
[2016-12-12] MEDS: Diltiazem 180 MG Cap.CD PO SCH ×2 (08:14→18:00)
[2016-12-12] MEDS: Cholestyramine/Sucrose Powder 4 GM Packet PO SCH (08:14)
[2016-12-12] MEDS: Ferrous Sulfate 325 MG Tab PO SCH (08:15)
[2016-12-12] MEDS: Aspirin 325 MG Tab.EC PO SCH ×2 (08:15→18:01)
[2016-12-12] MEDS: Insulin Detemir 100 Units/ML 3 ML Pen SUBCUT SCH (08:16)
[2016-12-12] MEDS: Digoxin 250 MCG Tab PO SCH (08:16)
[2016-12-12] MEDS: RIFAMPIN 300MG CAPSULE PO SCH (08:18)
[2016-12-12] MEDS: Polyethylene Glycol 3350 Powder 510 GM Bot PO SCH (08:18)
[2016-12-12] MEDS: Metoprolol Tartrate 50 MG Tab PO SCH ×2 (08:18→18:00)
[2016-12-12] MEDS: Cholecalciferol (Vitamin D3) 1,000 Unit Tab PO SCH (08:19)
[2016-12-12] MEDS: Acetaminophen 500 MG Tab PO SCH ×2 (08:19→18:00)
[2016-12-12] MEDS: Allopurinol 100 MG Tab PO SCH (08:20)
[2016-12-12] MEDS ORDERED: Warfarin 5 MG Tab PO ONE (09:10)
--- NOTE | 2016-12-12 13:18 | PCM.PN ---
- General Info Date of Service: 12/12/16 Admission Dx/Problem (Free Text): 1. MSSA septicemia 2. Postoperative left knee pain Functional Status: Reports: pain controlled, tolerating diet, ambulating, urinating, incentive spirometry. Denies: new symptoms Pain Score: 2 (Patient very satisfied with pain control) - Review of Systems General: Reports: No Symptoms. Denies: Fever, Weakness, Fatigue, Malaise, Chills, Night Sweats, Appetite (Good) HEENT: Reports: glasses. Denies: dysphasia, ear pain, eye pain, headaches, post nasal drip, sinus congestion, sore throat, rhinitis, visual changes Pulmonary: Reports: no symptoms. Denies: shortness of breath, pleuritic chest pain, cough, wheezing Cardiovascular: Reports: Edema (Improving dependent). Denies: Chest Pain, Palpitations, Dyspnea on Exertion, Orthopnea, Lightheadedness Gastrointestinal: Reports: No symptoms, Other (Small bowel movement this morning with excellent bowel movement yesterday by his history). Denies: Abdominal pain, Constipation, Decreased appetite, Diarrhea, Difficulty swallowing, Flatus, Hematochezia, Melena, Nausea, Vomiting Musculoskeletal: Reports: joint pain (Improving and well-controlled left knee pain), joint swelling (Left knee effusion). Denies: neck pain, shoulder pain, arm pain, hand pain, back pain, leg pain, foot pain Skin: Reports: bruising (Improved), other (Postoperative left knee incision healing well). Denies: cyanosis, jaundice, diaphoresis, pruritis, rash Neurological: Reports: Difficulty Walking (Secondary to recent left knee surgery although improving, patient satisfied with physical therapy and occupational therapy). Denies: Confusion, Dizziness, Headache, Numbness, Paresthesia, Weakness, Change in Speech, Gait Disturbance Psychiatric: Reports: no symptoms. Denies: confusion, depression, anxiety, agitation, hallucinations - Patient Data Vitals - most recent: Last Vital Signs Temp 36.9 C 12/11/16 20:00 Pulse 94 12/12/16 08:18 Resp 18 12/11/16 20:00 BP 0/0 L 12/12/16 08:18 Pulse Ox 98 12/11/16 20:00 Vital Signs (72 hours) 12/09/16 12/09/16 12/10/16 17:49 20:00 07:41 Temperature [ Oral] Temperature [ 36.8 C Temporal] Pulse, 0 L 80 Peripheral Pulse, Peripheral [ Left Pulse Oximetry] Pulse, 80 Peripheral [ Right Pulse Oximetry] Respiratory 18 Rate Blood Pressure 0/0 L Blood Pressure 125/75 [Left Arm] O2 Sat by Pulse 96 Oximetry 12/10/16 12/10/16 12/10/16 07:43 08:00 17:36 Temperature [ 36.5 C Oral] Temperature [ Temporal] Pulse, 0 L 0 L Peripheral Pulse, Peripheral [ Left Pulse Oximetry] Pulse, 77 Peripheral [ Right Pulse Oximetry] Respiratory 18 Rate Blood Pressure 0/0 L 0/0 L Blood Pressure 127/72 [Left Arm] O2 Sat by Pulse 94 L Oximetry 12/10/16 12/11/16 12/11/16 20:00 08:00 08:12 Temperature [ 36.7 C 36.6 C Oral] Temperature [ Temporal] Pulse, 97 Peripheral Pulse, Peripheral [ Left Pulse Oximetry] Pulse, 74 97 Peripheral [ Right Pulse Oximetry] Respiratory 18 18 Rate Blood Pressure Blood Pressure 110/69 148/79 H [Left Arm] O2 Sat by Pulse 97 93 L Oximetry 12/11/16 12/11/16 12/11/16 08:14 18:28 20:00 Temperature [ 36.9 C Oral] Temperature [ Temporal] Pulse, 97 0 L Peripheral Pulse, 87 Peripheral [ Left Pulse Oximetry] Pulse, Peripheral [ Right Pulse Oximetry] Respiratory 18 Rate Blood Pressure 148/79 H 0/0 L Blood Pressure 107/61 [Left Arm] O2 Sat by Pulse 98 Oximetry 12/12/16 12/12/16 08:16 08:18 Temperature [ Oral] Temperature [ Temporal] Pulse, 94 94 Peripheral Pulse, Peripheral [ Left Pulse Oximetry] Pulse, Peripheral [ Right Pulse Oximetry] Respiratory Rate Blood Pressure 0/0 L Blood Pressure [Left Arm] O2 Sat by Pulse Oximetry Weight - most recent: 89.131 kg Imaging Impressions - last 24 hrs: None Lab Results last 24 hrs: Laboratory Results - last 24 hr 12/11/16 12/11/16 12/12/16 Range/Units 06:57 19:51 05:11 WBC (4.0-10.2) K/uL RBC (4.33-5.41) M/uL Hgb (13.1-16.8) g/dL Hct (39.0-49.0) % MCV (84.0-98.0) fL MCH (28.2-33.3) pg MCHC (31.7-36.0) g/dL RDW (11.2-14.1) % Plt Count (150-350) K/uL Neut % (Auto) (45.0-80.0) % Lymph % (Auto) (10.0-50.0) % [place] % (Auto) (2.0-14.0) % Eos % (Auto) (0.0-5.0) % Baso % (Auto) (0.0-2.0) % Neut # (Auto) (1.40-7.00) K/uL Lymph # (Auto) (0.50-3.50) K/uL [place] # (Auto) (0.00-1.00) K/uL Eos # (Auto) (0.00-0.50) K/uL Baso # (Auto) (0.00-0.20) K/uL ESR (0-20) mm/hr PT (9.8-11.7) SEC INR Sodium 140 (136-145) mmol/L Potassium 4.9 (3.5-5.1) mmol/L Chloride 107 (98-107) mmol/L Carbon Dioxide 27.3 (21.0-32.0) mmol/L BUN 39 H (7-18) mg/dL Creatinine 1.49 H (0.51-1.17) mg/dL Est Cr Clr Drug Dosing 45.02 mL/min Estimated GFR (MDRD) 46 mL/min Glucose 116 H (74-106) mg/dL POC Glucose 115 H 212 H (65-110) mg/dl Calcium 8.5 (8.5-10.1) mg/dL Total Bilirubin 0.2 (0.2-1.0) mg/dL AST 30 (15-37) U/L ALT 17 (12-78) U/L Alkaline Phosphatase 92 (46-116) IU/L C-Reactive Protein 5.8 H (<=0.9) mg/dL Total Protein 6.0 L (6.4-8.2) g/dL Albumin 2.3 L (3.4-5.0) g/dL 12/12/16 12/12/16 12/12/16 Range/Units 06:25 06:25 06:25 WBC 4.9 (4.0-10.2) K/uL RBC 3.34 L (4.33-5.41) M/uL Hgb 10.1 L (13.1-16.8) g/dL Hct 32.5 L (39.0-49.0) % MCV 97.3 (84.0-98.0) fL MCH 30.2 (28.2-33.3) pg MCHC 31.1 L (31.7-36.0) g/dL RDW 12.5 (11.2-14.1) % Plt Count 347 D (150-350) K/uL Neut % (Auto) 64.8 (45.0-80.0) % Lymph % (Auto) 20.9 (10.0-50.0) % [place] % (Auto) 9.6 (2.0-14.0) % Eos % (Auto) 3.7 (0.0-5.0) % Baso % (Auto) 1.0 (0.0-2.0) % Neut # (Auto) 3.19 (1.40-7.00) K/uL Lymph # (Auto) 1.03 (0.50-3.50) K/uL [place] # (Auto) 0.47 (0.00-1.00) K/uL Eos # (Auto) 0.18 (0.00-0.50) K/uL Baso # (Auto) 0.05 (0.00-0.20) K/uL ESR 66 H (0-20) mm/hr PT 17.6 H (9.8-11.7) SEC INR 1.6 Sodium (136-145) mmol/L Potassium (3.5-5.1) mmol/L Chloride (98-107) mmol/L Carbon Dioxide (21.0-32.0) mmol/L BUN (7-18) mg/dL Creatinine (0.51-1.17) mg/dL Est Cr Clr Drug Dosing mL/min Estimated GFR (MDRD) mL/min Glucose (74-106) mg/dL POC Glucose (65-110) mg/dl Calcium (8.5-10.1) mg/dL Total Bilirubin (0.2-1.0) mg/dL AST (15-37) U/L ALT (12-78) U/L Alkaline Phosphatase (46-116) IU/L C-Reactive Protein (<=0.9) mg/dL Total Protein (6.4-8.2) g/dL Albumin (3.4-5.0) g/dL Laboratory Tests 12/01/16 12/01/16 12/01/16 Range/Units 17:20 17:48 20:30 WBC (4.0-10.2) K/uL RBC (4.33-5.41) M/uL Hgb (13.1-16.8) g/dL Hct (39.0-49.0) % MCV (84.0-98.0) fL MCH (28.2-33.3) pg MCHC (31.7-36.0) g/dL RDW (11.2-14.1) % Plt Count (150-350) K/uL Neut % (Auto) (45.0-80.0) % Lymph % (Auto) (10.0-50.0) % [place] % (Auto) (2.0-14.0) % Eos % (Auto) (0.0-5.0) % Baso % (Auto) (0.0-2.0) % Neut # (Auto) (1.40-7.00) K/uL Lymph # (Auto) (0.50-3.50) K/uL [place] # (Auto) (0.00-1.00) K/uL Eos # (Auto) (0.00-0.50) K/uL Baso # (Auto) (0.00-0.20) K/uL ESR (0-20) mm/hr PT (9.8-11.7) SEC INR Sodium (136-145) mmol/L Potassium (3.5-5.1) mmol/L Chloride (98-107) mmol/L Carbon Dioxide (21.0-32.0) mmol/L BUN (7-18) mg/dL Creatinine (0.51-1.17) mg/dL Est Cr Clr Drug Dosing mL/min Estimated GFR (MDRD) mL/min Glucose (74-106) mg/dL POC Glucose 129 H 187 H (65-110) mg/dl Calcium (8.5-10.1) mg/dL Total Bilirubin (0.2-1.0) mg/dL AST (15-37) U/L ALT (12-78) U/L Alkaline Phosphatase (46-116) IU/L C-Reactive Protein (<=0.9) mg/dL Total Protein (6.4-8.2) g/dL Albumin (3.4-5.0) g/dL Digoxin 0.44 L (0.90-2.00) ng/mL 12/02/16 12/02/16 12/02/16 Range/Units 06:15 06:15 06:15 WBC 9.9 (4.0-10.2) K/uL RBC 3.38 L (4.33-5.41) M/uL Hgb 10.5 L (13.1-16.8) g/dL Hct 32.8 L (39.0-49.0) % MCV 97.0 (84.0-98.0) fL MCH 31.1 (28.2-33.3) pg MCHC 32.0 (31.7-36.0) g/dL RDW 12.2 (11.2-14.1) % Plt Count 429 H (150-350) K/uL Neut % (Auto) 80.1 H (45.0-80.0) % Lymph % (Auto) 9.6 L (10.0-50.0) % [place] % (Auto) 7.9 (2.0-14.0) % Eos % (Auto) 2.1 (0.0-5.0) % Baso % (Auto) 0.3 (0.0-2.0) % Neut # (Auto) 7.94 H (1.40-7.00) K/uL Lymph # (Auto) 0.95 (0.50-3.50) K/uL [place] # (Auto) 0.78 (0.00-1.00) K/uL Eos # (Auto) 0.21 (0.00-0.50) K/uL Baso # (Auto) 0.03 (0.00-0.20) K/uL ESR (0-20) mm/hr PT 13.4 H D (9.8-11.7) SEC INR 1.2 Sodium 137 (136-145) mmol/L Potassium 5.1 (3.5-5.1) mmol/L Chloride 103 (98-107) mmol/L Carbon Dioxide 27.8 (21.0-32.0) mmol/L BUN 39 H (7-18) mg/dL Creatinine 1.48 H (0.51-1.17) mg/dL Est Cr Clr Drug Dosing 45.21 mL/min Estimated GFR (MDRD) 46 mL/min Glucose 141 H (74-106) mg/dL POC Glucose (65-110) mg/dl Calcium 8.4 L (8.5-10.1) mg/dL Total Bilirubin 0.4 (0.2-1.0) mg/dL AST 24 (15-37) U/L ALT 8 L (12-78) U/L Alkaline Phosphatase 75 (46-116) IU/L C-Reactive Protein (<=0.9) mg/dL Total Protein 5.9 L (6.4-8.2) g/dL Albumin 2.2 L (3.4-5.0) g/dL Digoxin (0.90-2.00) ng/mL 12/02/16 12/02/16 12/02/16 Range/Units 08:06 11:26 18:00 WBC (4.0-10.2) K/uL RBC (4.33-5.41) M/uL Hgb (13.1-16.8) g/dL Hct (39.0-49.0) % MCV (84.0-98.0) fL MCH (28.2-33.3) pg MCHC (31.7-36.0) g/dL RDW (11.2-14.1) % Plt Count (150-350) K/uL Neut % (Auto) (45.0-80.0) % Lymph % (Auto) (10.0-50.0) % [place] % (Auto) (2.0-14.0) % Eos % (Auto) (0.0-5.0) % Baso % (Auto) (0.0-2.0) % Neut # (Auto) (1.40-7.00) K/uL Lymph # (Auto) (0.50-3.50) K/uL [place] # (Auto) (0.00-1.00) K/uL Eos # (Auto) (0.00-0.50) K/uL Baso # (Auto) (0.00-0.20) K/uL ESR (0-20) mm/hr PT (9.8-11.7) SEC INR Sodium (136-145) mmol/L Potassium (3.5-5.1) mmol/L Chloride (98-107) mmol/L Carbon Dioxide (21.0-32.0) mmol/L BUN (7-18) mg/dL Creatinine (0.51-1.17) mg/dL Est Cr Clr Drug Dosing mL/min Estimated GFR (MDRD) mL/min Glucose (74-106) mg/dL POC Glucose 132 H 154 H 121 H (65-110) mg/dl Calcium (8.5-10.1) mg/dL Total Bilirubin (0.2-1.0) mg/dL AST (15-37) U/L ALT (12-78) U/L Alkaline Phosphatase (46-116) IU/L C-Reactive Protein (<=0.9) mg/dL Total Protein (6.4-8.2) g/dL Albumin (3.4-5.0) g/dL Digoxin (0.90-2.00) ng/mL 12/02/16 12/03/16 12/03/16 Range/Units 20:49 06:05 06:37 WBC (4.0-10.2) K/uL RBC (4.33-5.41) M/uL Hgb (13.1-16.8) g/dL Hct (39.0-49.0) % MCV (84.0-98.0) fL MCH (28.2-33.3) pg MCHC (31.7-36.0) g/dL RDW (11.2-14.1) % Plt Count (150-350) K/uL Neut % (Auto) (45.0-80.0) % Lymph % (Auto) (10.0-50.0) % [place] % (Auto) (2.0-14.0) % Eos % (Auto) (0.0-5.0) % Baso % (Auto) (0.0-2.0) % Neut # (Auto) (1.40-7.00) K/uL Lymph # (Auto) (0.50-3.50) K/uL [place] # (Auto) (0.00-1.00) K/uL Eos # (Auto) (0.00-0.50) K/uL Baso # (Auto) (0.00-0.20) K/uL ESR (0-20) mm/hr PT (9.8-11.7) SEC INR 1.6 Sodium (136-145) mmol/L Potassium (3.5-5.1) mmol/L Chloride (98-107) mmol/L Carbon Dioxide (21.0-32.0) mmol/L BUN (7-18) mg/dL Creatinine (0.51-1.17) mg/dL Est Cr Clr Drug Dosing mL/min Estimated GFR (MDRD) mL/min Glucose (74-106) mg/dL POC Glucose 192 H 123 H (65-110) mg/dl Calcium (8.5-10.1) mg/dL Total Bilirubin (0.2-1.0) mg/dL AST (15-37) U/L ALT (12-78) U/L Alkaline Phosphatase (46-116) IU/L C-Reactive Protein (<=0.9) mg/dL Total Protein (6.4-8.2) g/dL Albumin (3.4-5.0) g/dL Digoxin (0.90-2.00) ng/mL 12/03/16 12/03/16 12/03/16 Range/Units 11:32 18:03 21:05 WBC (4.0-10.2) K/uL RBC (4.33-5.41) M/uL Hgb (13.1-16.8) g/dL Hct (39.0-49.0) % MCV (84.0-98.0) fL MCH (28.2-33.3) pg MCHC (31.7-36.0) g/dL RDW (11.2-14.1) % Plt Count (150-350) K/uL Neut % (Auto) (45.0-80.0) % Lymph % (Auto) (10.0-50.0) % [place] % (Auto) (2.0-14.0) % Eos % (Auto) (0.0-5.0) % Baso % (Auto) (0.0-2.0) % Neut # (Auto) (1.40-7.00) K/uL Lymph # (Auto) (0.50-3.50) K/uL [place] # (Auto) (0.00-1.00) K/uL Eos # (Auto) (0.00-0.50) K/uL Baso # (Auto) (0.00-0.20) K/uL ESR (0-20) mm/hr PT (9.8-11.7) SEC INR Sodium (136-145) mmol/L Potassium (3.5-5.1) mmol/L Chloride (98-107) mmol/L Carbon Dioxide (21.0-32.0) mmol/L BUN (7-18) mg/dL Creatinine (0.51-1.17) mg/dL Est Cr Clr Drug Dosing mL/min Estimated GFR (MDRD) mL/min Glucose (74-106) mg/dL POC Glucose 158 H 104 160 H (65-110) mg/dl Calcium (8.5-10.1) mg/dL Total Bilirubin (0.2-1.0) mg/dL AST (15-37) U/L ALT (12-78) U/L Alkaline Phosphatase (46-116) IU/L C-Reactive Protein (<=0.9) mg/dL Total Protein (6.4-8.2) g/dL Albumin (3.4-5.0) g/dL Digoxin (0.90-2.00) ng/mL 12/04/16 12/04/16 12/04/16 Range/Units 07:10 07:12 11:32 WBC (4.0-10.2) K/uL RBC (4.33-5.41) M/uL Hgb (13.1-16.8) g/dL Hct (39.0-49.0) % MCV (84.0-98.0) fL MCH (28.2-33.3) pg MCHC (31.7-36.0) g/dL RDW (11.2-14.1) % Plt Count (150-350) K/uL Neut % (Auto) (45.0-80.0) % Lymph % (Auto) (10.0-50.0) % [place] % (Auto) (2.0-14.0) % Eos % (Auto) (0.0-5.0) % Baso % (Auto) (0.0-2.0) % Neut # (Auto) (1.40-7.00) K/uL Lymph # (Auto) (0.50-3.50) K/uL [place] # (Auto) (0.00-1.00) K/uL Eos # (Auto) (0.00-0.50) K/uL Baso # (Auto) (0.00-0.20) K/uL ESR (0-20) mm/hr PT (9.8-11.7) SEC INR 2.3 Sodium (136-145) mmol/L Potassium (3.5-5.1) mmol/L Chloride (98-107) mmol/L Carbon Dioxide (21.0-32.0) mmol/L BUN (7-18) mg/dL Creatinine (0.51-1.17) mg/dL Est Cr Clr Drug Dosing mL/min Estimated GFR (MDRD) mL/min Glucose (74-106) mg/dL POC Glucose 124 H 167 H (65-110) mg/dl Calcium (8.5-10.1) mg/dL Total Bilirubin (0.2-1.0) mg/dL AST (15-37) U/L ALT (12-78) U/L Alkaline Phosphatase (46-116) IU/L C-Reactive Protein (<=0.9) mg/dL Total Protein (6.4-8.2) g/dL Albumin (3.4-5.0) g/dL Digoxin (0.90-2.00) ng/mL 12/04/16 12/04/16 12/05/16 Range/Units 17:34 20:43 06:55 WBC (4.0-10.2) K/uL RBC (4.33-5.41) M/uL Hgb (13.1-16.8) g/dL Hct (39.0-49.0) % MCV (84.0-98.0) fL MCH (28.2-33.3) pg MCHC (31.7-36.0) g/dL RDW (11.2-14.1) % Plt Count (150-350) K/uL Neut % (Auto) (45.0-80.0) % Lymph % (Auto) (10.0-50.0) % [place] % (Auto) (2.0-14.0) % Eos % (Auto) (0.0-5.0) % Baso % (Auto) (0.0-2.0) % Neut # (Auto) (1.40-7.00) K/uL Lymph # (Auto) (0.50-3.50) K/uL [place] # (Auto) (0.00-1.00) K/uL Eos # (Auto) (0.00-0.50) K/uL Baso # (Auto) (0.00-0.20) K/uL ESR (0-20) mm/hr PT 22.5 H D (9.8-11.7) SEC INR 2.0 Sodium (136-145) mmol/L Potassium (3.5-5.1) mmol/L Chloride (98-107) mmol/L Carbon Dioxide (21.0-32.0) mmol/L BUN (7-18) mg/dL Creatinine (0.51-1.17) mg/dL Est Cr Clr Drug Dosing mL/min Estimated GFR (MDRD) mL/min Glucose (74-106) mg/dL POC Glucose 110 213 H (65-110) mg/dl Calcium (8.5-10.1) mg/dL Total Bilirubin (0.2-1.0) mg/dL AST (15-37) U/L ALT (12-78) U/L Alkaline Phosphatase (46-116) IU/L C-Reactive Protein (<=0.9) mg/dL Total Protein (6.4-8.2) g/dL Albumin (3.4-5.0) g/dL Digoxin (0.90-2.00) ng/mL 12/05/16 12/05/16 12/05/16 Range/Units 06:55 06:55 06:57 WBC 8.8 (4.0-10.2) K/uL RBC 3.56 L (4.33-5.41) M/uL Hgb 10.9 L (13.1-16.8) g/dL Hct 34.3 L (39.0-49.0) % MCV 96.3 (84.0-98.0) fL MCH 30.6 (28.2-33.3) pg MCHC 31.8 (31.7-36.0) g/dL RDW 12.7 (11.2-14.1) % Plt Count 540 H D (150-350) K/uL Neut % (Auto) 77.5 (45.0-80.0) % Lymph % (Auto) 12.3 (10.0-50.0) % [place] % (Auto) 8.0 (2.0-14.0) % Eos % (Auto) 1.6 (0.0-5.0) % Baso % (Auto) 0.6 (0.0-2.0) % Neut # (Auto) 6.81 (1.40-7.00) K/uL Lymph # (Auto) 1.08 (0.50-3.50) K/uL [place] # (Auto) 0.70 (0.00-1.00) K/uL Eos # (Auto) 0.14 (0.00-0.50) K/uL Baso # (Auto) 0.05 (0.00-0.20) K/uL ESR 84 H (0-20) mm/hr PT (9.8-11.7) SEC INR Sodium 137 (136-145) mmol/L Potassium 5.1 (3.5-5.1) mmol/L Chloride 104 (98-107) mmol/L Carbon Dioxide 27.2 (21.0-32.0) mmol/L BUN 43 H (7-18) mg/dL Creatinine 1.58 H (0.51-1.17) mg/dL Est Cr Clr Drug Dosing 42.46 mL/min Estimated GFR (MDRD) 43 mL/min Glucose 128 H (74-106) mg/dL POC Glucose 125 H (65-110) mg/dl Calcium 8.7 (8.5-10.1) mg/dL Total Bilirubin 0.3 (0.2-1.0) mg/dL AST 49 H (15-37) U/L ALT 17 (12-78) U/L Alkaline Phosphatase 90 (46-116) IU/L C-Reactive Protein 8.7 H (<=0.9) mg/dL Total Protein 6.1 L (6.4-8.2) g/dL Albumin 2.4 L (3.4-5.0) g/dL Digoxin (0.90-2.00) ng/mL 12/05/16 12/05/16 12/06/16 Range/Units 11:20 16:50 06:25 WBC (4.0-10.2) K/uL RBC (4.33-5.41) M/uL Hgb (13.1-16.8) g/dL Hct (39.0-49.0) % MCV (84.0-98.0) fL MCH (28.2-33.3) pg MCHC (31.7-36.0) g/dL RDW (11.2-14.1) % Plt Count (150-350) K/uL Neut % (Auto) (45.0-80.0) % Lymph % (Auto) (10.0-50.0) % [place] % (Auto) (2.0-14.0) % Eos % (Auto) (0.0-5.0) % Baso % (Auto) (0.0-2.0) % Neut # (Auto) (1.40-7.00) K/uL Lymph # (Auto) (0.50-3.50) K/uL [place] # (Auto) (0.00-1.00) K/uL Eos # (Auto) (0.00-0.50) K/uL Baso # (Auto) (0.00-0.20) K/uL ESR (0-20) mm/hr PT (9.8-11.7) SEC INR Sodium (136-145) mmol/L Potassium (3.5-5.1) mmol/L Chloride (98-107) mmol/L Carbon Dioxide (21.0-32.0) mmol/L BUN (7-18) mg/dL Creatinine (0.51-1.17) mg/dL Est Cr Clr Drug Dosing mL/min Estimated GFR (MDRD) mL/min Glucose (74-106) mg/dL POC Glucose 158 H 154 H 119 H (65-110) mg/dl Calcium (8.5-10.1) mg/dL Total Bilirubin (0.2-1.0) mg/dL AST (15-37) U/L ALT (12-78) U/L Alkaline Phosphatase (46-116) IU/L C-Reactive Protein (<=0.9) mg/dL Total Protein (6.4-8.2) g/dL Albumin (3.4-5.0) g/dL Digoxin (0.90-2.00) ng/mL 12/06/16 12/06/16 12/07/16 Range/Units 06:28 16:57 07:57 WBC (4.0-10.2) K/uL RBC (4.33-5.41) M/uL Hgb (13.1-16.8) g/dL Hct (39.0-49.0) % MCV (84.0-98.0) fL MCH (28.2-33.3) pg MCHC (31.7-36.0) g/dL RDW (11.2-14.1) % Plt Count (150-350) K/uL Neut % (Auto) (45.0-80.0) % Lymph % (Auto) (10.0-50.0) % [place] % (Auto) (2.0-14.0) % Eos % (Auto) (0.0-5.0) % Baso % (Auto) (0.0-2.0) % Neut # (Auto) (1.40-7.00) K/uL Lymph # (Auto) (0.50-3.50) K/uL [place] # (Auto) (0.00-1.00) K/uL Eos # (Auto) (0.00-0.50) K/uL Baso # (Auto) (0.00-0.20) K/uL ESR (0-20) mm/hr PT (9.8-11.7) SEC INR 2.5 Sodium (136-145) mmol/L Potassium (3.5-5.1) mmol/L Chloride (98-107) mmol/L Carbon Dioxide (21.0-32.0) mmol/L BUN (7-18) mg/dL Creatinine (0.51-1.17) mg/dL Est Cr Clr Drug Dosing mL/min Estimated GFR (MDRD) mL/min Glucose (74-106) mg/dL POC Glucose 109 117 H (65-110) mg/dl Calcium (8.5-10.1) mg/dL Total Bilirubin (0.2-1.0) mg/dL AST (15-37) U/L ALT (12-78) U/L Alkaline Phosphatase (46-116) IU/L C-Reactive Protein (<=0.9) mg/dL Total Protein (6.4-8.2) g/dL Albumin (3.4-5.0) g/dL Digoxin (0.90-2.00) ng/mL 12/07/16 12/08/16 12/08/16 Range/Units 16:33 08:33 17:54 WBC (4.0-10.2) K/uL RBC (4.33-5.41) M/uL Hgb (13.1-16.8) g/dL Hct (39.0-49.0) % MCV (84.0-98.0) fL MCH (28.2-33.3) pg MCHC (31.7-36.0) g/dL RDW (11.2-14.1) % Plt Count (150-350) K/uL Neut % (Auto) (45.0-80.0) % Lymph % (Auto) (10.0-50.0) % [place] % (Auto) (2.0-14.0) % Eos % (Auto) (0.0-5.0) % Baso % (Auto) (0.0-2.0) % Neut # (Auto) (1.40-7.00) K/uL Lymph # (Auto) (0.50-3.50) K/uL [place] # (Auto) (0.00-1.00) K/uL Eos # (Auto) (0.00-0.50) K/uL Baso # (Auto) (0.00-0.20) K/uL ESR (0-20) mm/hr PT (9.8-11.7) SEC INR Sodium (136-145) mmol/L Potassium (3.5-5.1) mmol/L Chloride (98-107) mmol/L Carbon Dioxide (21.0-32.0) mmol/L BUN (7-18) mg/dL Creatinine (0.51-1.17) mg/dL Est Cr Clr Drug Dosing mL/min Estimated GFR (MDRD) mL/min Glucose (74-106) mg/dL POC Glucose 143 H 119 H 101 (65-110) mg/dl Calcium (8.5-10.1) mg/dL Total Bilirubin (0.2-1.0) mg/dL AST (15-37) U/L ALT (12-78) U/L Alkaline Phosphatase (46-116) IU/L C-Reactive Protein (<=0.9) mg/dL Total Protein (6.4-8.2) g/dL Albumin (3.4-5.0) g/dL Digoxin (0.90-2.00) ng/mL 12/09/16 12/09/16 12/10/16 Range/Units 08:00 17:53 07:53 WBC (4.0-10.2) K/uL RBC (4.33-5.41) M/uL Hgb (13.1-16.8) g/dL Hct (39.0-49.0) % MCV (84.0-98.0) fL MCH (28.2-33.3) pg MCHC (31.7-36.0) g/dL RDW (11.2-14.1) % Plt Count (150-350) K/uL Neut % (Auto) (45.0-80.0) % Lymph % (Auto) (10.0-50.0) % [place] % (Auto) (2.0-14.0) % Eos % (Auto) (0.0-5.0) % Baso % (Auto) (0.0-2.0) % Neut # (Auto) (1.40-7.00) K/uL Lymph # (Auto) (0.50-3.50) K/uL [place] # (Auto) (0.00-1.00) K/uL Eos # (Auto) (0.00-0.50) K/uL Baso # (Auto) (0.00-0.20) K/uL ESR (0-20) mm/hr PT (9.8-11.7) SEC INR Sodium (136-145) mmol/L Potassium (3.5-5.1) mmol/L Chloride (98-107) mmol/L Carbon Dioxide (21.0-32.0) mmol/L BUN (7-18) mg/dL Creatinine (0.51-1.17) mg/dL Est Cr Clr Drug Dosing mL/min Estimated GFR (MDRD) mL/min Glucose (74-106) mg/dL POC Glucose 137 H 108 117 H (65-110) mg/dl Calcium (8.5-10.1) mg/dL Total Bilirubin (0.2-1.0) mg/dL AST (15-37) U/L ALT (12-78) U/L Alkaline Phosphatase (46-116) IU/L C-Reactive Protein (<=0.9) mg/dL Total Protein (6.4-8.2) g/dL Albumin (3.4-5.0) g/dL Digoxin (0.90-2.00) ng/mL 12/10/16 12/10/16 12/11/16 Range/Units 08:55 17:39 06:57 WBC (4.0-10.2) K/uL RBC (4.33-5.41) M/uL Hgb (13.1-16.8) g/dL Hct (39.0-49.0) % MCV (84.0-98.0) fL MCH (28.2-33.3) pg MCHC (31.7-36.0) g/dL RDW (11.2-14.1) % Plt Count (150-350) K/uL Neut % (Auto) (45.0-80.0) % Lymph % (Auto) (10.0-50.0) % [place] % (Auto) (2.0-14.0) % Eos % (Auto) (0.0-5.0) % Baso % (Auto) (0.0-2.0) % Neut # (Auto) (1.40-7.00) K/uL Lymph # (Auto) (0.50-3.50) K/uL [place] # (Auto) (0.00-1.00) K/uL Eos # (Auto) (0.00-0.50) K/uL Baso # (Auto) (0.00-0.20) K/uL ESR (0-20) mm/hr PT (9.8-11.7) SEC INR 1.6 Sodium (136-145) mmol/L Potassium (3.5-5.1) mmol/L Chloride (98-107) mmol/L Carbon Dioxide (21.0-32.0) mmol/L BUN (7-18) mg/dL Creatinine (0.51-1.17) mg/dL Est Cr Clr Drug Dosing mL/min Estimated GFR (MDRD) mL/min Glucose (74-106) mg/dL POC Glucose 99 115 H (65-110) mg/dl Calcium (8.5-10.1) mg/dL Total Bilirubin (0.2-1.0) mg/dL AST (15-37) U/L ALT (12-78) U/L Alkaline Phosphatase (46-116) IU/L C-Reactive Protein (<=0.9) mg/dL Total Protein (6.4-8.2) g/dL Albumin (3.4-5.0) g/dL Digoxin (0.90-2.00) ng/mL 12/11/16 12/11/16 12/12/16 Range/Units 08:50 19:51 05:11 WBC (4.0-10.2) K/uL RBC (4.33-5.41) M/uL Hgb (13.1-16.8) g/dL Hct (39.0-49.0) % MCV (84.0-98.0) fL MCH (28.2-33.3) pg MCHC (31.7-36.0) g/dL RDW (11.2-14.1) % Plt Count (150-350) K/uL Neut % (Auto) (45.0-80.0) % Lymph % (Auto) (10.0-50.0) % [place] % (Auto) (2.0-14.0) % Eos % (Auto) (0.0-5.0) % Baso % (Auto) (0.0-2.0) % Neut # (Auto) (1.40-7.00) K/uL Lymph # (Auto) (0.50-3.50) K/uL [place] # (Auto) (0.00-1.00) K/uL Eos # (Auto) (0.00-0.50) K/uL Baso # (Auto) (0.00-0.20) K/uL ESR (0-20) mm/hr PT (9.8-11.7) SEC INR 1.7 Sodium 140 (136-145) mmol/L Potassium 4.9 (3.5-5.1) mmol/L Chloride 107 (98-107) mmol/L Carbon Dioxide 27.3 (21.0-32.0) mmol/L BUN 39 H (7-18) mg/dL Creatinine 1.49 H (0.51-1.17) mg/dL Est Cr Clr Drug Dosing 45.02 mL/min Estimated GFR (MDRD) 46 mL/min Glucose 116 H (74-106) mg/dL POC Glucose 212 H (65-110) mg/dl Calcium 8.5 (8.5-10.1) mg/dL Total Bilirubin 0.2 (0.2-1.0) mg/dL AST 30 (15-37) U/L ALT 17 (12-78) U/L Alkaline Phosphatase 92 (46-116) IU/L C-Reactive Protein 5.8 H (<=0.9) mg/dL Total Protein 6.0 L (6.4-8.2) g/dL Albumin 2.3 L (3.4-5.0) g/dL Digoxin (0.90-2.00) ng/mL 12/12/16 12/12/16 12/12/16 Range/Units 06:25 06:25 06:25 WBC 4.9 (4.0-10.2) K/uL RBC 3.34 L (4.33-5.41) M/uL Hgb 10.1 L (13.1-16.8) g/dL Hct 32.5 L (39.0-49.0) % MCV 97.3 (84.0-98.0) fL MCH 30.2 (28.2-33.3) pg MCHC 31.1 L (31.7-36.0) g/dL RDW 12.5 (11.2-14.1) % Plt Count 347 D (150-350) K/uL Neut % (Auto) 64.8 (45.0-80.0) % Lymph % (Auto) 20.9 (10.0-50.0) % [place] % (Auto) 9.6 (2.0-14.0) % Eos % (Auto) 3.7 (0.0-5.0) % Baso % (Auto) 1.0 (0.0-2.0) % Neut # (Auto) 3.19 (1.40-7.00) K/uL Lymph # (Auto) 1.03 (0.50-3.50) K/uL [place] # (Auto) 0.47 (0.00-1.00) K/uL Eos # (Auto) 0.18 (0.00-0.50) K/uL Baso # (Auto) 0.05 (0.00-0.20) K/uL ESR 66 H (0-20) mm/hr PT 17.6 H (9.8-11.7) SEC INR 1.6 Sodium (136-145) mmol/L Potassium (3.5-5.1) mmol/L Chloride (98-107) mmol/L Carbon Dioxide (21.0-32.0) mmol/L BUN (7-18) mg/dL Creatinine (0.51-1.17) mg/dL Est Cr Clr Drug Dosing mL/min Estimated GFR (MDRD) mL/min Glucose (74-106) mg/dL POC Glucose (65-110) mg/dl Calcium (8.5-10.1) mg/dL Total Bilirubin (0.2-1.0) mg/dL AST (15-37) U/L ALT (12-78) U/L Alkaline Phosphatase (46-116) IU/L C-Reactive Protein (<=0.9) mg/dL Total Protein (6.4-8.2) g/dL Albumin (3.4-5.0) g/dL Digoxin (0.90-2.00) ng/mL Dax Results last 24 hrs: Laboratory Tests 12/01/16 12/01/16 12/01/16 Range/Units 17:20 17:48 20:30 WBC (4.0-10.2) K/uL RBC (4.33-5.41) M/uL Hgb (13.1-16.8) g/dL Hct (39.0-49.0) % MCV (84.0-98.0) fL MCH (28.2-33.3) pg MCHC (31.7-36.0) g/dL RDW (11.2-14.1) % Plt Count (150-350) K/uL Neut % (Auto) (45.0-80.0) % Lymph % (Auto) (10.0-50.0) % [place] % (Auto) (2.0-14.0) % Eos % (Auto) (0.0-5.0) % Baso % (Auto) (0.0-2.0) % Neut # (Auto) (1.40-7.00) K/uL Lymph # (Auto) (0.50-3.50) K/uL [place] # (Auto) (0.00-1.00) K/uL Eos # (Auto) (0.00-0.50) K/uL Baso # (Auto) (0.00-0.20) K/uL ESR (0-20) mm/hr PT (9.8-11.7) SEC INR Sodium (136-145) mmol/L Potassium (3.5-5.1) mmol/L Chloride (98-107) mmol/L Carbon Dioxide (21.0-32.0) mmol/L BUN (7-18) mg/dL Creatinine (0.51-1.17) mg/dL Est Cr Clr Drug Dosing mL/min Estimated GFR (MDRD) mL/min Glucose (74-106) mg/dL POC Glucose 129 H 187 H (65-110) mg/dl Calcium (8.5-10.1) mg/dL Total Bilirubin (0.2-1.0) mg/dL AST (15-37) U/L ALT (12-78) U/L Alkaline Phosphatase (46-116) IU/L C-Reactive Protein (<=0.9) mg/dL Total Protein (6.4-8.2) g/dL Albumin (3.4-5.0) g/dL Digoxin 0.44 L (0.90-2.00) ng/mL 12/02/16 12/02/16 12/02/16 Range/Units 06:15 06:15 06:15 WBC 9.9 (4.0-10.2) K/uL RBC 3.38 L (4.33-5.41) M/uL Hgb 10.5 L (13.1-16.8) g/dL Hct 32.8 L (39.0-49.0) % MCV 97.0 (84.0-98.0) fL MCH 31.1 (28.2-33.3) pg MCHC 32.0 (31.7-36.0) g/dL RDW 12.2 (11.2-14.1) % Plt Count 429 H (150-350) K/uL Neut % (Auto) 80.1 H (45.0-80.0) % Lymph % (Auto) 9.6 L (10.0-50.0) % [place] % (Auto) 7.9 (2.0-14.0) % Eos % (Auto) 2.1 (0.0-5.0) % Baso % (Auto) 0.3 (0.0-2.0) % Neut # (Auto) 7.94 H (1.40-7.00) K/uL Lymph # (Auto) 0.95 (0.50-3.50) K/uL [place] # (Auto) 0.78 (0.00-1.00) K/uL Eos # (Auto) 0.21 (0.00-0.50) K/uL Baso # (Auto) 0.03 (0.00-0.20) K/uL ESR (0-20) mm/hr PT 13.4 H D (9.8-11.7) SEC INR 1.2 Sodium 137 (136-145) mmol/L Potassium 5.1 (3.5-5.1) mmol/L Chloride 103 (98-107) mmol/L Carbon Dioxide 27.8 (21.0-32.0) mmol/L BUN 39 H (7-18) mg/dL Creatinine 1.48 H (0.51-1.17) mg/dL Est Cr Clr Drug Dosing 45.21 mL/min Estimated GFR (MDRD) 46 mL/min Glucose 141 H (74-106) mg/dL POC Glucose (65-110) mg/dl Calcium 8.4 L (8.5-10.1) mg/dL Total Bilirubin 0.4 (0.2-1.0) mg/dL AST 24 (15-37) U/L ALT 8 L (12-78) U/L Alkaline Phosphatase 75 (46-116) IU/L C-Reactive Protein (<=0.9) mg/dL Total Protein 5.9 L (6.4-8.2) g/dL Albumin 2.2 L (3.4-5.0) g/dL Digoxin (0.90-2.00) ng/mL 12/02/16 12/02/16 12/02/16 Range/Units 08:06 11:26 18:00 WBC (4.0-10.2) K/uL RBC (4.33-5.41) M/uL Hgb (13.1-16.8) g/dL Hct (39.0-49.0) % MCV (84.0-98.0) fL MCH (28.2-33.3) pg MCHC (31.7-36.0) g/dL RDW (11.2-14.1) % Plt Count (150-350) K/uL Neut % (Auto) (45.0-80.0) % Lymph % (Auto) (10.0-50.0) % [place] % (Auto) (2.0-14.0) % Eos % (Auto) (0.0-5.0) % Baso % (Auto) (0.0-2.0) % Neut # (Auto) (1.40-7.00) K/uL Lymph # (Auto) (0.50-3.50) K/uL [place] # (Auto) (0.00-1.00) K/uL Eos # (Auto) (0.00-0.50) K/uL Baso # (Auto) (0.00-0.20) K/uL ESR (0-20) mm/hr PT (9.8-11.7) SEC INR Sodium (136-145) mmol/L Potassium (3.5-5.1) mmol/L Chloride (98-107) mmol/L Carbon Dioxide (21.0-32.0) mmol/L BUN (7-18) mg/dL Creatinine (0.51-1.17) mg/dL Est Cr Clr Drug Dosing mL/min Estimated GFR (MDRD) mL/min Glucose (74-106) mg/dL POC Glucose 132 H 154 H 121 H (65-110) mg/dl Calcium (8.5-10.1) mg/dL Total Bilirubin (0.2-1.0) mg/dL AST (15-37) U/L ALT (12-78) U/L Alkaline Phosphatase (46-116) IU/L C-Reactive Protein (<=0.9) mg/dL Total Protein (6.4-8.2) g/dL Albumin (3.4-5.0) g/dL Digoxin (0.90-2.00) ng/mL 12/02/16 12/03/16 12/03/16 Range/Units 20:49 06:05 06:37 WBC (4.0-10.2) K/uL RBC (4.33-5.41) M/uL Hgb (13.1-16.8) g/dL Hct (39.0-49.0) % MCV (84.0-98.0) fL MCH (28.2-33.3) pg MCHC (31.7-36.0) g/dL RDW (11.2-14.1) % Plt Count (150-350) K/uL Neut % (Auto) (45.0-80.0) % Lymph % (Auto) (10.0-50.0) % [place] % (Auto) (2.0-14.0) % Eos % (Auto) (0.0-5.0) % Baso % (Auto) (0.0-2.0) % Neut # (Auto) (1.40-7.00) K/uL Lymph # (Auto) (0.50-3.50) K/uL [place] # (Auto) (0.00-1.00) K/uL Eos # (Auto) (0.00-0.50) K/uL Baso # (Auto) (0.00-0.20) K/uL ESR (0-20) mm/hr PT (9.8-11.7) SEC INR 1.6 Sodium (136-145) mmol/L Potassium (3.5-5.1) mmol/L Chloride (98-107) mmol/L Carbon Dioxide (21.0-32.0) mmol/L BUN (7-18) mg/dL Creatinine (0.51-1.17) mg/dL Est Cr Clr Drug Dosing mL/min Estimated GFR (MDRD) mL/min Glucose (74-106) mg/dL POC Glucose 192 H 123 H (65-110) mg/dl Calcium (8.5-10.1) mg/dL Total Bilirubin (0.2-1.0) mg/dL AST (15-37) U/L ALT (12-78) U/L Alkaline Phosphatase (46-116) IU/L C-Reactive Protein (<=0.9) mg/dL Total Protein (6.4-8.2) g/dL Albumin (3.4-5.0) g/dL Digoxin (0.90-2.00) ng/mL 12/03/16 12/03/16 12/03/16 Range/Units 11:32 18:03 21:05 WBC (4.0-10.2) K/uL RBC (4.33-5.41) M/uL Hgb (13.1-16.8) g/dL Hct (39.0-49.0) % MCV (84.0-98.0) fL MCH (28.2-33.3) pg MCHC (31.7-36.0) g/dL RDW (11.2-14.1) % Plt Count (150-350) K/uL Neut % (Auto) (45.0-80.0) % Lymph % (Auto) (10.0-50.0) % [place] % (Auto) (2.0-14.0) % Eos % (Auto) (0.0-5.0) % Baso % (Auto) (0.0-2.0) % Neut # (Auto) (1.40-7.00) K/uL Lymph # (Auto) (0.50-3.50) K/uL [place] # (Auto) (0.00-1.00) K/uL Eos # (Auto) (0.00-0.50) K/uL Baso # (Auto) (0.00-0.20) K/uL ESR (0-20) mm/hr PT (9.8-11.7) SEC INR Sodium (136-145) mmol/L Potassium (3.5-5.1) mmol/L Chloride (98-107) mmol/L Carbon Dioxide (21.0-32.0) mmol/L BUN (7-18) mg/dL Creatinine (0.51-1.17) mg/dL Est Cr Clr Drug Dosing mL/min Estimated GFR (MDRD) mL/min Glucose (74-106) mg/dL POC Glucose 158 H 104 160 H (65-110) mg/dl Calcium (8.5-10.1) mg/dL Total Bilirubin (0.2-1.0) mg/dL AST (15-37) U/L ALT (12-78) U/L Alkaline Phosphatase (46-116) IU/L C-Reactive Protein (<=0.9) mg/dL Total Protein (6.4-8.2) g/dL Albumin (3.4-5.0) g/dL Digoxin (0.90-2.00) ng/mL 12/04/16 12/04/16 12/04/16 Range/Units 07:10 07:12 11:32 WBC (4.0-10.2) K/uL RBC (4.33-5.41) M/uL Hgb (13.1-16.8) g/dL Hct (39.0-49.0) % MCV (84.0-98.0) fL MCH (28.2-33.3) pg MCHC (31.7-36.0) g/dL RDW (11.2-14.1) % Plt Count (150-350) K/uL Neut % (Auto) (45.0-80.0) % Lymph % (Auto) (10.0-50.0) % [place] % (Auto) (2.0-14.0) % Eos % (Auto) (0.0-5.0) % Baso % (Auto) (0.0-2.0) % Neut # (Auto) (1.40-7.00) K/uL Lymph # (Auto) (0.50-3.50) K/uL [place] # (Auto) (0.00-1.00) K/uL Eos # (Auto) (0.00-0.50) K/uL Baso # (Auto) (0.00-0.20) K/uL ESR (0-20) mm/hr PT (9.8-11.7) SEC INR 2.3 Sodium (136-145) mmol/L Potassium (3.5-5.1) mmol/L Chloride (98-107) mmol/L Carbon Dioxide (21.0-32.0) mmol/L BUN (7-18) mg/dL Creatinine (0.51-1.17) mg/dL Est Cr Clr Drug Dosing mL/min Estimated GFR (MDRD) mL/min Glucose (74-106) mg/dL POC Glucose 124 H 167 H (65-110) mg/dl Calcium (8.5-10.1) mg/dL Total Bilirubin (0.2-1.0) mg/dL AST (15-37) U/L ALT (12-78) U/L Alkaline Phosphatase (46-116) IU/L C-Reactive Protein (<=0.9) mg/dL Total Protein (6.4-8.2) g/dL Albumin (3.4-5.0) g/dL Digoxin (0.90-2.00) ng/mL 12/04/16 12/04/16 12/05/16 Range/Units 17:34 20:43 06:55 WBC (4.0-10.2) K/uL RBC (4.33-5.41) M/uL Hgb (13.1-16.8) g/dL Hct (39.0-49.0) % MCV (84.0-98.0) fL MCH (28.2-33.3) pg MCHC (31.7-36.0) g/dL RDW (11.2-14.1) % Plt Count (150-350) K/uL Neut % (Auto) (45.0-80.0) % Lymph % (Auto) (10.0-50.0) % [place] % (Auto) (2.0-14.0) % Eos % (Auto) (0.0-5.0) % Baso % (Auto) (0.0-2.0) % Neut # (Auto) (1.40-7.00) K/uL Lymph # (Auto) (0.50-3.50) K/uL [place] # (Auto) (0.00-1.00) K/uL Eos # (Auto) (0.00-0.50) K/uL Baso # (Auto) (0.00-0.20) K/uL ESR (0-20) mm/hr PT 22.5 H D (9.8-11.7) SEC INR 2.0 Sodium (136-145) mmol/L Potassium (3.5-5.1) mmol/L Chloride (98-107) mmol/L Carbon Dioxide (21.0-32.0) mmol/L BUN (7-18) mg/dL Creatinine (0.51-1.17) mg/dL Est Cr Clr Drug Dosing mL/min Estimated GFR (MDRD) mL/min Glucose (74-106) mg/dL POC Glucose 110 213 H (65-110) mg/dl Calcium (8.5-10.1) mg/dL Total Bilirubin (0.2-1.0) mg/dL AST (15-37) U/L ALT (12-78) U/L Alkaline Phosphatase (46-116) IU/L C-Reactive Protein (<=0.9) mg/dL Total Protein (6.4-8.2) g/dL Albumin (3.4-5.0) g/dL Digoxin (0.90-2.00) ng/mL 12/05/16 12/05/16 12/05/16 Range/Units 06:55 06:55 06:57 WBC 8.8 (4.0-10.2) K/uL RBC 3.56 L (4.33-5.41) M/uL Hgb 10.9 L (13.1-16.8) g/dL Hct 34.3 L (39.0-49.0) % MCV 96.3 (84.0-98.0) fL MCH 30.6 (28.2-33.3) pg MCHC 31.8 (31.7-36.0) g/dL RDW 12.7 (11.2-14.1) % Plt Count 540 H D (150-350) K/uL Neut % (Auto) 77.5 (45.0-80.0) % Lymph % (Auto) 12.3 (10.0-50.0) % [place] % (Auto) 8.0 (2.0-14.0) % Eos % (Auto) 1.6 (0.0-5.0) % Baso % (Auto) 0.6 (0.0-2.0) % Neut # (Auto) 6.81 (1.40-7.00) K/uL Lymph # (Auto) 1.08 (0.50-3.50) K/uL [place] # (Auto) 0.70 (0.00-1.00) K/uL Eos # (Auto) 0.14 (0.00-0.50) K/uL Baso # (Auto) 0.05 (0.00-0.20) K/uL ESR 84 H (0-20) mm/hr PT (9.8-11.7) SEC INR Sodium 137 (136-145) mmol/L Potassium 5.1 (3.5-5.1) mmol/L Chloride 104 (98-107) mmol/L Carbon Dioxide 27.2 (21.0-32.0) mmol/L BUN 43 H (7-18) mg/dL Creatinine 1.58 H (0.51-1.17) mg/dL Est Cr Clr Drug Dosing 42.46 mL/min Estimated GFR (MDRD) 43 mL/min Glucose 128 H (74-106) mg/dL POC Glucose 125 H (65-110) mg/dl Calcium 8.7 (8.5-10.1) mg/dL Total Bilirubin 0.3 (0.2-1.0) mg/dL AST 49 H (15-37) U/L ALT 17 (12-78) U/L Alkaline Phosphatase 90 (46-116) IU/L C-Reactive Protein 8.7 H (<=0.9) mg/dL Total Protein 6.1 L (6.4-8.2) g/dL Albumin 2.4 L (3.4-5.0) g/dL Digoxin (0.90-2.00) ng/mL 12/05/16 12/05/16 12/06/16 Range/Units 11:20 16:50 06:25 WBC (4.0-10.2) K/uL RBC (4.33-5.41) M/uL Hgb (13.1-16.8) g/dL Hct (39.0-49.0) % MCV (84.0-98.0) fL MCH (28.2-33.3) pg MCHC (31.7-36.0) g/dL RDW (11.2-14.1) % Plt Count (150-350) K/uL Neut % (Auto) (45.0-80.0) % Lymph % (Auto) (10.0-50.0) % [place] % (Auto) (2.0-14.0) % Eos % (Auto) (0.0-5.0) % Baso % (Auto) (0.0-2.0) % Neut # (Auto) (1.40-7.00) K/uL Lymph # (Auto) (0.50-3.50) K/uL [place] # (Auto) (0.00-1.00) K/uL Eos # (Auto) (0.00-0.50) K/uL Baso # (Auto) (0.00-0.20) K/uL ESR (0-20) mm/hr PT (9.8-11.7) SEC INR Sodium (136-145) mmol/L Potassium (3.5-5.1) mmol/L Chloride (98-107) mmol/L Carbon Dioxide (21.0-32.0) mmol/L BUN (7-18) mg/dL Creatinine (0.51-1.17) mg/dL Est Cr Clr Drug Dosing mL/min Estimated GFR (MDRD) mL/min Glucose (74-106) mg/dL POC Glucose 158 H 154 H 119 H (65-110) mg/dl Calcium (8.5-10.1) mg/dL Total Bilirubin (0.2-1.0) mg/dL AST (15-37) U/L ALT (12-78) U/L Alkaline Phosphatase (46-116) IU/L C-Reactive Protein (<=0.9) mg/dL Total Protein (6.4-8.2) g/dL Albumin (3.4-5.0) g/dL Digoxin (0.90-2.00) ng/mL 05/16/17 05/16/17 05/17/17 Range/Units 06:28 16:57 07:57 WBC (4.0-10.2) K/uL RBC (4.33-5.41) M/uL Hgb (13.1-16.8) g/dL Hct (39.0-49.0) % MCV (84.0-98.0) fL MCH (28.2-33.3) pg MCHC (31.7-36.0) g/dL RDW (11.2-14.1) % Plt Count (150-350) K/uL Neut % (Auto) (45.0-80.0) % Lymph % (Auto) (10.0-50.0) % [place] % (Auto) (2.0-14.0) % Eos % (Auto) (0.0-5.0) % Baso % (Auto) (0.0-2.0) % Neut # (Auto) (1.40-7.00) K/uL Lymph # (Auto) (0.50-3.50) K/uL [place] # (Auto) (0.00-1.00) K/uL Eos # (Auto) (0.00-0.50) K/uL Baso # (Auto) (0.00-0.20) K/uL ESR (0-20) mm/hr PT (9.8-11.7) SEC INR 2.5 Sodium (136-145) mmol/L Potassium (3.5-5.1) mmol/L Chloride (98-107) mmol/L Carbon Dioxide (21.0-32.0) mmol/L BUN (7-18) mg/dL Creatinine (0.51-1.17) mg/dL Est Cr Clr Drug Dosing mL/min Estimated GFR (MDRD) mL/min Glucose (74-106) mg/dL POC Glucose 109 117 H (65-110) mg/dl Calcium (8.5-10.1) mg/dL Total Bilirubin (0.2-1.0) mg/dL AST (15-37) U/L ALT (12-78) U/L Alkaline Phosphatase (46-116) IU/L C-Reactive Protein (<=0.9) mg/dL Total Protein (6.4-8.2) g/dL Albumin (3.4-5.0) g/dL Digoxin (0.90-2.00) ng/mL 12/07/16 12/08/16 12/08/16 Range/Units 16:33 08:33 17:54 WBC (4.0-10.2) K/uL RBC (4.33-5.41) M/uL Hgb (13.1-16.8) g/dL Hct (39.0-49.0) % MCV (84.0-98.0) fL MCH (28.2-33.3) pg MCHC (31.7-36.0) g/dL RDW (11.2-14.1) % Plt Count (150-350) K/uL Neut % (Auto) (45.0-80.0) % Lymph % (Auto) (10.0-50.0) % [place] % (Auto) (2.0-14.0) % Eos % (Auto) (0.0-5.0) % Baso % (Auto) (0.0-2.0) % Neut # (Auto) (1.40-7.00) K/uL Lymph # (Auto) (0.50-3.50) K/uL [place] # (Auto) (0.00-1.00) K/uL Eos # (Auto) (0.00-0.50) K/uL Baso # (Auto) (0.00-0.20) K/uL ESR (0-20) mm/hr PT (9.8-11.7) SEC INR Sodium (136-145) mmol/L Potassium (3.5-5.1) mmol/L Chloride (98-107) mmol/L Carbon Dioxide (21.0-32.0) mmol/L BUN (7-18) mg/dL Creatinine (0.51-1.17) mg/dL Est Cr Clr Drug Dosing mL/min Estimated GFR (MDRD) mL/min Glucose (74-106) mg/dL POC Glucose 143 H 119 H 101 (65-110) mg/dl Calcium (8.5-10.1) mg/dL Total Bilirubin (0.2-1.0) mg/dL AST (15-37) U/L ALT (12-78) U/L Alkaline Phosphatase (46-116) IU/L C-Reactive Protein (<=0.9) mg/dL Total Protein (6.4-8.2) g/dL Albumin (3.4-5.0) g/dL Digoxin (0.90-2.00) ng/mL 12/09/16 12/09/16 12/10/16 Range/Units 08:00 17:53 07:53 WBC (4.0-10.2) K/uL RBC (4.33-5.41) M/uL Hgb (13.1-16.8) g/dL Hct (39.0-49.0) % MCV (84.0-98.0) fL MCH (28.2-33.3) pg MCHC (31.7-36.0) g/dL RDW (11.2-14.1) % Plt Count (150-350) K/uL Neut % (Auto) (45.0-80.0) % Lymph % (Auto) (10.0-50.0) % [place] % (Auto) (2.0-14.0) % Eos % (Auto) (0.0-5.0) % Baso % (Auto) (0.0-2.0) % Neut # (Auto) (1.40-7.00) K/uL Lymph # (Auto) (0.50-3.50) K/uL [place] # (Auto) (0.00-1.00) K/uL Eos # (Auto) (0.00-0.50) K/uL Baso # (Auto) (0.00-0.20) K/uL ESR (0-20) mm/hr PT (9.8-11.7) SEC INR Sodium (136-145) mmol/L Potassium (3.5-5.1) mmol/L Chloride (98-107) mmol/L Carbon Dioxide (21.0-32.0) mmol/L BUN (7-18) mg/dL Creatinine (0.51-1.17) mg/dL Est Cr Clr Drug Dosing mL/min Estimated GFR (MDRD) mL/min Glucose (74-106) mg/dL POC Glucose 137 H 108 117 H (65-110) mg/dl Calcium (8.5-10.1) mg/dL Total Bilirubin (0.2-1.0) mg/dL AST (15-37) U/L ALT (12-78) U/L Alkaline Phosphatase (46-116) IU/L C-Reactive Protein (<=0.9) mg/dL Total Protein (6.4-8.2) g/dL Albumin (3.4-5.0) g/dL Digoxin (0.90-2.00) ng/mL 12/10/16 12/10/16 12/11/16 Range/Units 08:55 17:39 06:57 WBC (4.0-10.2) K/uL RBC (4.33-5.41) M/uL Hgb (13.1-16.8) g/dL Hct (39.0-49.0) % MCV (84.0-98.0) fL MCH (28.2-33.3) pg MCHC (31.7-36.0) g/dL RDW (11.2-14.1) % Plt Count (150-350) K/uL Neut % (Auto) (45.0-80.0) % Lymph % (Auto) (10.0-50.0) % [place] % (Auto) (2.0-14.0) % Eos % (Auto) (0.0-5.0) % Baso % (Auto) (0.0-2.0) % Neut # (Auto) (1.40-7.00) K/uL Lymph # (Auto) (0.50-3.50) K/uL [place] # (Auto) (0.00-1.00) K/uL Eos # (Auto) (0.00-0.50) K/uL Baso # (Auto) (0.00-0.20) K/uL ESR (0-20) mm/hr PT (9.8-11.7) SEC INR 1.6 Sodium (136-145) mmol/L Potassium (3.5-5.1) mmol/L Chloride (98-107) mmol/L Carbon Dioxide (21.0-32.0) mmol/L BUN (7-18) mg/dL Creatinine (0.51-1.17) mg/dL Est Cr Clr Drug Dosing mL/min Estimated GFR (MDRD) mL/min Glucose (74-106) mg/dL POC Glucose 99 115 H (65-110) mg/dl Calcium (8.5-10.1) mg/dL Total Bilirubin (0.2-1.0) mg/dL AST (15-37) U/L ALT (12-78) U/L Alkaline Phosphatase (46-116) IU/L C-Reactive Protein (<=0.9) mg/dL Total Protein (6.4-8.2) g/dL Albumin (3.4-5.0) g/dL Digoxin (0.90-2.00) ng/mL 12/11/16 12/11/16 12/12/16 Range/Units 08:50 19:51 05:11 WBC (4.0-10.2) K/uL RBC (4.33-5.41) M/uL Hgb (13.1-16.8) g/dL Hct (39.0-49.0) % MCV (84.0-98.0) fL MCH (28.2-33.3) pg MCHC (31.7-36.0) g/dL RDW (11.2-14.1) % Plt Count (150-350) K/uL Neut % (Auto) (45.0-80.0) % Lymph % (Auto) (10.0-50.0) % [place] % (Auto) (2.0-14.0) % Eos % (Auto) (0.0-5.0) % Baso % (Auto) (0.0-2.0) % Neut # (Auto) (1.40-7.00) K/uL Lymph # (Auto) (0.50-3.50) K/uL [place] # (Auto) (0.00-1.00) K/uL Eos # (Auto) (0.00-0.50) K/uL Baso # (Auto) (0.00-0.20) K/uL ESR (0-20) mm/hr PT (9.8-11.7) SEC INR 1.7 Sodium 140 (136-145) mmol/L Potassium 4.9 (3.5-5.1) mmol/L Chloride 107 (98-107) mmol/L Carbon Dioxide 27.3 (21.0-32.0) mmol/L BUN 39 H (7-18) mg/dL Creatinine 1.49 H (0.51-1.17) mg/dL Est Cr Clr Drug Dosing 45.02 mL/min Estimated GFR (MDRD) 46 mL/min Glucose 116 H (74-106) mg/dL POC Glucose 212 H (65-110) mg/dl Calcium 8.5 (8.5-10.1) mg/dL Total Bilirubin 0.2 (0.2-1.0) mg/dL AST 30 (15-37) U/L ALT 17 (12-78) U/L Alkaline Phosphatase 92 (46-116) IU/L C-Reactive Protein 5.8 H (<=0.9) mg/dL Total Protein 6.0 L (6.4-8.2) g/dL Albumin 2.3 L (3.4-5.0) g/dL Digoxin (0.90-2.00) ng/mL 12/12/16 12/12/16 12/12/16 Range/Units 06:25 06:25 06:25 WBC 4.9 (4.0-10.2) K/uL RBC 3.34 L (4.33-5.41) M/uL Hgb 10.1 L (13.1-16.8) g/dL Hct 32.5 L (39.0-49.0) % MCV 97.3 (84.0-98.0) fL MCH 30.2 (28.2-33.3) pg MCHC 31.1 L (31.7-36.0) g/dL RDW 12.5 (11.2-14.1) % Plt Count 347 D (150-350) K/uL Neut % (Auto) 64.8 (45.0-80.0) % Lymph % (Auto) 20.9 (10.0-50.0) % [place] % (Auto) 9.6 (2.0-14.0) % Eos % (Auto) 3.7 (0.0-5.0) % Baso % (Auto) 1.0 (0.0-2.0) % Neut # (Auto) 3.19 (1.40-7.00) K/uL Lymph # (Auto) 1.03 (0.50-3.50) K/uL [place] # (Auto) 0.47 (0.00-1.00) K/uL Eos # (Auto) 0.18 (0.00-0.50) K/uL Baso # (Auto) 0.05 (0.00-0.20) K/uL ESR 66 H (0-20) mm/hr PT 17.6 H (9.8-11.7) SEC INR 1.6 Sodium (136-145) mmol/L Potassium (3.5-5.1) mmol/L Chloride (98-107) mmol/L Carbon Dioxide (21.0-32.0) mmol/L BUN (7-18) mg/dL Creatinine (0.51-1.17) mg/dL Est Cr Clr Drug Dosing mL/min Estimated GFR (MDRD) mL/min Glucose (74-106) mg/dL POC Glucose (65-110) mg/dl Calcium (8.5-10.1) mg/dL Total Bilirubin (0.2-1.0) mg/dL AST (15-37) U/L ALT (12-78) U/L Alkaline Phosphatase (46-116) IU/L C-Reactive Protein (<=0.9) mg/dL Total Protein (6.4-8.2) g/dL Albumin (3.4-5.0) g/dL Digoxin (0.90-2.00) ng/mL Med Orders - Current: Current Medications Acetaminophen (Tylenol) 650 mg PO Q4HR PRN PRN Reason: Pain (mild 1-3) Last Admin: 12/10/16 21:02 Dose: 650 mg Acetaminophen (Tylenol Extra Strength) 500 mg PO BID [facility] Last Admin: 12/12/16 08:19 Dose: 500 mg Allopurinol (Zyloprim) 150 mg PO DAILY [facility] Last Admin: 12/12/16 08:20 Dose: 150 mg Aspirin (Ecotrin) 325 mg PO BID [facility] Stop: 12/25/16 15:46 Last Admin: 12/12/16 08:15 Dose: 325 mg Cefazolin Sodium (Ancef) 2 gm IV Q8HR [facility] Last Admin: 12/12/16 07:39 Dose: 2 gm Cholecalciferol (Vitamin D3) 2,000 units PO DAILY [facility] Last Admin: 12/12/16 08:19 Dose: 2,000 units Cholestyramine Resin (Cholestyramine Packet) 4 gm PO DAILY [facility] Last Admin: 12/12/16 08:14 Dose: 4 gm Digoxin (Lanoxin) 250 mcg PO QAM [facility] Last Admin: 12/12/16 08:16 Dose: 250 mcg Diltiazem HCl (Cardizem Cd) 180 mg PO BID [facility] Last Admin: 12/12/16 08:14 Dose: 180 mg Ferrous Sulfate (Ferrous Sulfate) 325 mg PO QAM [facility] Last Admin: 12/12/16 08:15 Dose: 325 mg Heparin Sodium (Porcine) (Heparin Lock Flush 100 Units/Ml Syringe) 300 units IVPUSH ASDIRECTED PRN PRN Reason: Keep Vein Open Last Admin: 12/08/16 00:22 Dose: 300 units Heparin Sodium (Porcine) (Heparin Lock Flush 100 Units/Ml Syringe) 300 units IVPUSH Q8HR [facility] Last Admin: 12/12/16 07:39 Dose: 300 units Insulin Aspart (Novolog Mix 70-30) 0 unit SUBCUT BIDAC [facility] PRN Reason: Protocol Insulin Detemir (Levemir) [facility] [place] Last Admin: 12/12/16 08:16 Dose: 8 units Melatonin (Melatonin) 3 mg PO BEDTIME PRN PRN Reason: Insomnia Metoprolol Tartrate (Lopressor) 100 mg PO BID [facility] Last Admin: 12/12/16 08:18 Dose: 100 mg Rifampin 300mg (Capsule) 2 each PO DAILY [facility] Last Admin: 12/12/16 08:18 Dose: 2 each Polyethylene Glycol (Miralax) 17 gm PO QAM [facility] Last Admin: 12/12/16 08:18 Dose: 17 gm Rosuvastatin Calcium (Crestor) 5 mg PO BEDTIME [facility] Last Admin: 12/11/16 21:21 Dose: 5 mg Senna/Docusate Sodium (Senna Plus) 1 tab PO BID PRN PRN Reason: Constipation Sodium Chloride (Saline Flush) 10 ml FLUSH ASDIRECTED PRN PRN Reason: Keep Vein Open Last Admin: 12/11/16 23:55 Dose: 10 ml Sodium Chloride (Saline Flush) 10 ml FLUSH Q8HR [facility] Last Admin: 12/12/16 07:40 Dose: 10 ml Tramadol HCl (Ultram) 50 mg PO QID PRN PRN Reason: Pain (moderate 4-6) Last Admin: 12/11/16 21:22 Dose: 50 mg Warfarin Sodium (Coumadin) 10 mg PO DAILY@1800 [facility] Discontinued Medications Heparin Sodium (Porcine) (Heparin Lock Flush 100 Units/Ml Syringe) 300 units IVPUSH Q12HR [facility] Last Admin: 12/08/16 08:49 Dose: 300 units Insulin Aspart (Novolog) 0 unit SUBCUT ACBED [facility] PRN Reason: Protocol Last Admin: 12/03/16 11:35 Dose: 2 units Non-Formulary Medication (Warfarin) 4 mg PO DAILY@1800 [facility] Polyethylene Glycol (Miralax) 17 gm PO QAM [facility] Last Admin: 12/02/16 10:45 Dose: Not Given Polyethylene Glycol (Miralax) 17 gm PO QAM [facility] Sodium Chloride (Saline Flush) 10 ml FLUSH Q12HR [facility] Last Admin: 12/09/16 08:45 Dose: 10 ml Warfarin Sodium (Coumadin) 4 mg PO DAILY@1800 [facility] Last Admin: 12/09/16 17:48 Dose: 4 mg Warfarin Sodium (Coumadin) 4 mg PO ONETIME ONE Stop: 12/02/16 18:01 Last Admin: 12/02/16 18:02 Dose: 4 mg Warfarin Sodium (Coumadin) 4 mg PO ONETIME ONE Stop: 12/03/16 13:12 Last Admin: 12/03/16 13:42 Dose: 4 mg Warfarin Sodium (Coumadin) 2 mg PO ONETIME ONE Stop: 12/03/16 13:22 Last Admin: 12/03/16 13:43 Dose: 2 mg Warfarin Sodium (Coumadin) 1 mg PO DAILY@1800 [facility] Stop: 12/05/16 23:00 Last Admin: 12/05/16 17:52 Dose: 1 mg Warfarin Sodium (Coumadin) 5 mg PO ONETIME ONE Stop: 12/10/16 12:25 Last Admin: 12/10/16 12:41 Dose: 5 mg Warfarin Sodium (Coumadin) 5 mg PO DAILY@1800 [facility] Warfarin Sodium (Coumadin) 5 mg PO DAILY@1800 [facility] Last Admin: 12/10/16 17:35 Dose: 5 mg Warfarin Sodium (Coumadin) 5 mg PO ONETIME ONE Stop: 12/11/16 16:57 Last Admin: 12/11/16 17:13 Dose: 5 mg Warfarin Sodium 5 mg/ Warfarin (Sodium 2 mg) 7 mg PO DAILY@1800 [facility] Last Admin: 12/11/16 18:31 Dose: Not Given Warfarin Sodium (Coumadin) 5 mg PO ONETIME ONE Stop: 12/11/16 18:36 Last Admin: 12/11/16 21:20 Dose: 5 mg Warfarin Sodium 5 mg/ Warfarin (Sodium 2 mg) 7 mg PO DAILY@1800 [facility] Warfarin Sodium (Coumadin) 10 mg PO ONETIME ONE Stop: 12/12/16 09:11 Last Admin: 12/12/16 09:20 Dose: 10 mg - Exam Quality Assessment: central line/PICC, DVT prophylaxis (On Coumadin). No: supplemental oxygen, urine catheter, skin breakdown, restraints General: alert, oriented, cooperative, no acute distress HEENT: Pupils equal, Pupils reactive, EOMI, Mucous membr. moist/pink Neck: supple, trachea midline, no JVD, no thyromegaly, carotid bruit ( Mild bilateral carotid bruits versus transmitted heart sounds). No: lymphadenopathy Lungs: Clear to auscultation, Normal respiratory effort. No: Rub Cardiovascular: Irregular Rhythm, Murmurs (Stable mild 1/6 ROMÁN at the aortic and mitral valves). No: Gallops, Rubs Abdomen: bowel sounds present, soft, no tenderness, no distension. No: CVA tenderness (Male) Exam: Deferred Back Exam: Normal Inspection, Full Range of Motion. No: CVA Tenderness (L), CVA Tenderness (R), Muscle Spasm Extremities: normal pulses, no calf tenderness, other (Improved mild trace to + 1 effusion of the left knee with left knee operative incision healing well with no discharge or local signs of infection, slowly improving range of motion, no significant localized palpation pain, improved trace bilateral pedal/pretibial edema, negative Homans sign) Peripheral Pulses: 2+: Radial (L), Radial (R), Dorsalis Pedis (L), Dorsalis Pedis (R) Skin: warm, dry, other (As above) Wound/Incisions: healing well Neurological: no new focal deficit, other (No clinical orthostasis) Psy/Mental Status: alert, normal affect, normal mood - Problem List & Annotations (1) Left knee pain SNOMED Code(s): 45386397 Code(s): M25.562 - PAIN IN LEFT KNEE Status: Acute Priority: High Current Visit: Yes Onset Date: ~11/23/16 Qualifiers: Chronicity: chronic Qualified Code(s): M25.562 - Pain in left knee; G89.29 - Other chronic pain Annotation/Comment:: Note recent repeat left TKA revision with patient very satisfied concerning current course of physical therapy and occupational therapy. Weekly blood work secondary to recent septicemia results to be sent to his infectious disease specialist at [facility] in [place] on a weekly basis. Per the patient's request he wishes to remain in swing bed for his entire course of scheduled antibiotic therapy. Orthopedic followup appointments have already been scheduled at [facility] in [place] on 12/20/16 with additional infectious disease consultation and appointment in that facility on . Note recurrent MSSA, including recent sepsis, with additional orders received from infectious disease. Continue aggressive oral rifampin and IV Ancef therapy with recommended treatment until 01/04/17. Pain under good control as above (2) Osteoarthritis SNOMED Code(s): 505711182 Code(s): M19.90 - UNSPECIFIED OSTEOARTHRITIS, UNSPECIFIED SITE Status: Chronic Priority: Medium Current Visit: Yes Qualifiers: Osteoarthritis location: multiple joints Annotation/Comment:: Osteoarthritis otherwise stable by history. Note history of gout (3) Atrial fibrillation SNOMED Code(s): 46952995 Code(s): I48.91 - UNSPECIFIED ATRIAL FIBRILLATION Status: Acute Priority : High Current Visit: Yes Qualifiers: Atrial fibrillation type: chronic Qualified Code(s): I48.2 - Chronic atrial fibrillation Annotation/Comment:: INRs continue to be variable despite repeated loading doses of his warfarin, including today. Daily INRs for now with his baseline Coumadin therapy increased starting tomorrow. Note that patient was previously on 4 mg daily with exception of 2 mg twice per week. No direct evidence of DVT. 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 Coumadin therapy will be continued as before secondary to his recurrent atrial fibrillation despite discontinuation instructions received from the orthopedic surgeon today. Therapeutic digoxin level on admission was subtherapeutic with adjustment of his therapy today and repeat level in about one week (4) IDDM (insulin dependent diabetes mellitus) SNOMED Code(s): 98884108 Code(s): E11.9 - TYPE 2 DIABETES MELLITUS WITHOUT COMPLICATIONS; Z79.4 - JAIL (CURRENT) USE OF INSULIN Status: Chronic Priority: Medium Current Visit: Yes Annotation/Comment:: IDDM with diabetic nephropathy and neuropathy with somewhat vertical Accu-Cheks and blood sugars, which are currently under relatively good control. Accu-Chek change to twice a day, a.c. , today with NovoLog Mix sliding scale also initiated (5) Renal insufficiency SNOMED Code(s): 396421737, 562860110 Code(s): N28.9 - DISORDER OF KIDNEY AND URETER, UNSPECIFIED Status: Acute Priority: High Current Visit: Yes Annotation/Comment:: Renal function relatively stable today. Recent acute renal failure secondary to sepsis with history of chronic diabetic nephropathy and proteinuria. Weekly Blood work has been ordered as above (6) Dyslipidemia SNOMED Code(s): 815044951 Code(s): E78.5 - HYPERLIPIDEMIA, UNSPECIFIED Status: Chronic Priority: Medium Current Visit: Yes Annotation/Comment:: Known dyslipidemia currently under therapy (7) Hypoalbuminemia SNOMED Code(s): 636300140 Code(s): E88.09 - [facility] DISORDERS OF PLASMA-PROTEIN METABOLISM, NEC Status: Acute Priority: Medium Current Visit: Yes Annotation/Comment:: High- protein Glucerna supplements initiated today. Continue weekly blood work (8) Anemia SNOMED Code(s): 690228191 Code(s): D64.9 - ANEMIA, UNSPECIFIED Status: Acute Current Visit: Yes Qualifiers: Anemia type: unspecified type Qualified Code(s): D64.9 - Anemia, unspecified Annotation/Comment:: Hemoglobin relatively stable at 10.1 today with previous hemoglobin of 10.9 on admission. Likely combined postoperative anemia with additional secondary anemia secondary to his renal insufficiency. No evidence of acute GI bleed. Continue to observe closely secondary to his Coumadin. Continue weekly blood work - Problem List Review Problem List Initiated/Reviewed/Updated: Yes - My Orders Last 24 Hours: My Active Orders 12/12/16 17:30 Blood Glucose Check, Bedside [RC] BIDAC Insuln Asp Prot/Insulin Aspart [NovoLOG Mix 70-30] See Protocol SUBCUT BIDAC 12/13/16 18:00 Warfarin [Coumadin] 10 mg PO DAILY@1800 12/19/16 05:11 CBC WITH AUTO DIFF [HEME] Q7D COMPREHENSIVE METABOLIC PN,CMP [CHEM] Q7D CRP [C-REACTIVE PROTEIN] [CHEM] Q7D ESR [SEDIMENTATION RATE MANUAL] [HEME] Q7D 12/26/16 05:11 CBC WITH AUTO DIFF [HEME] Q7D COMPREHENSIVE METABOLIC PN,CMP [CHEM] Q7D CRP [C-REACTIVE PROTEIN] [CHEM] Q7D ESR [SEDIMENTATION RATE MANUAL] [HEME] Q7D 01/02/17 05:11 CBC WITH AUTO DIFF [HEME] Q7D COMPREHENSIVE METABOLIC PN,CMP [CHEM] Q7D CRP [C-REACTIVE PROTEIN] [CHEM] Q7D ESR [SEDIMENTATION RATE MANUAL] [HEME] Q7D - Assessment Assessment:: As above - Plan Plan:: As above. Extensive precautions were given to the patient, who is in agreement with the treatment plan. Reevaluate patient within the next 2-4 weeks depending on his clinical course. Continue weekly blood work as above.
[2016-12-12] MEDS: Insuln Aspart Prot/Insulin Aspart 100 Units/ML 3 ML FlexPen SUBCUT SCH (17:34)
[2016-12-12] MEDS: Rosuvastatin 10 MG Tab PO SCH (21:10)
[2016-12-12] MEDS: traMADol 50 MG Tab PO PRN (21:11)
[2016-12-12] MEDS: Acetaminophen 325 MG Tab PO PRN (21:12)
[2016-12-13] MEDS: Insulin Detemir 100 Units/ML 3 ML Pen SUBCUT SCH (08:06)
[2016-12-13] MEDS: Insuln Aspart Prot/Insulin Aspart 100 Units/ML 3 ML FlexPen SUBCUT SCH ×2 (08:08→16:47)
[2016-12-13] MEDS: Diltiazem 180 MG Cap.CD PO SCH ×2 (08:09→17:39)
[2016-12-13] MEDS: Cholestyramine/Sucrose Powder 4 GM Packet PO SCH (08:09)
[2016-12-13] MEDS: Polyethylene Glycol 3350 Powder 510 GM Bot PO SCH (08:10)
[2016-12-13] MEDS: Ferrous Sulfate 325 MG Tab PO SCH (08:10)
[2016-12-13] MEDS: Aspirin 325 MG Tab.EC PO SCH ×2 (08:10→17:40)
[2016-12-13] MEDS: Digoxin 250 MCG Tab PO SCH (08:11)
[2016-12-13] MEDS: Metoprolol Tartrate 50 MG Tab PO SCH ×2 (08:12→17:41)
[2016-12-13] MEDS: RIFAMPIN 300MG CAPSULE PO SCH (08:13)
[2016-12-13] MEDS: Acetaminophen 500 MG Tab PO SCH ×2 (08:13→17:41)
[2016-12-13] MEDS: Allopurinol 100 MG Tab PO SCH (08:15)
[2016-12-13] MEDS: Cholecalciferol (Vitamin D3) 1,000 Unit Tab PO SCH (08:15)
[2016-12-13] MEDS: ceFAZolin 1 GM Vial IV SCH ×2 (08:19→15:19)
[2016-12-13] MEDS: Sodium Chloride 0.9% 10 ML Syringe FLUSH SCH ×2 (08:24→15:25)
[2016-12-13] MEDS: Warfarin 2 MG Tab PO SCH (17:40)
[2016-12-13] MEDS ORDERED: Warfarin 5 MG Tab PO SCH (18:00)
[2016-12-13] MEDS: Rosuvastatin 10 MG Tab PO SCH (19:58)
[2016-12-13] MEDS: Sodium Chloride 0.9% 10 ML Syringe FLUSH PRN (20:07)
[2016-12-13] MEDS: Acetaminophen 325 MG Tab PO PRN (22:20)
[2016-12-14] MEDS: ceFAZolin 1 GM Vial IV SCH ×3 (00:25→16:21)
[2016-12-14] MEDS: Sodium Chloride 0.9% 10 ML Syringe FLUSH PRN (00:26)
[2016-12-14] MEDS: Sodium Chloride 0.9% 10 ML Syringe FLUSH SCH ×3 (00:26→16:21)
[2016-12-14] MEDS: traMADol 50 MG Tab PO PRN ×2 (00:34→21:35)
[2016-12-14] MEDS: Insuln Aspart Prot/Insulin Aspart 100 Units/ML 3 ML FlexPen SUBCUT SCH ×2 (07:44→17:23)
[2016-12-14] MEDS: Cholestyramine/Sucrose Powder 4 GM Packet PO SCH (07:48)
[2016-12-14] MEDS: Aspirin 325 MG Tab.EC PO SCH ×2 (07:48→17:33)
[2016-12-14] MEDS: Diltiazem 180 MG Cap.CD PO SCH ×2 (07:48→17:32)
[2016-12-14] MEDS: Ferrous Sulfate 325 MG Tab PO SCH (07:49)
[2016-12-14] MEDS: Digoxin 250 MCG Tab PO SCH (07:54)
[2016-12-14] MEDS: Insulin Detemir 100 Units/ML 3 ML Pen SUBCUT SCH (07:55)
[2016-12-14] MEDS: Metoprolol Tartrate 50 MG Tab PO SCH ×2 (07:57→17:33)
[2016-12-14] MEDS: RIFAMPIN 300MG CAPSULE PO SCH (07:58)
[2016-12-14] MEDS: Polyethylene Glycol 3350 Powder 510 GM Bot PO SCH (07:58)
[2016-12-14] MEDS: Cholecalciferol (Vitamin D3) 1,000 Unit Tab PO SCH (08:02)
[2016-12-14] MEDS: Acetaminophen 500 MG Tab PO SCH ×2 (08:02→17:33)
[2016-12-14] MEDS: Allopurinol 100 MG Tab PO SCH (08:03)
[2016-12-14] MEDS: Warfarin 2 MG Tab PO SCH (17:31)
[2016-12-14] MEDS: Rosuvastatin 10 MG Tab PO SCH (19:51)
[2016-12-15] MEDS: Sodium Chloride 0.9% 10 ML Syringe FLUSH SCH ×3 (00:17→15:38)
[2016-12-15] MEDS: ceFAZolin 1 GM Vial IV SCH ×3 (00:17→15:37)
[2016-12-15] MEDS: Sodium Chloride 0.9% 10 ML Syringe FLUSH PRN ×4 (00:17→20:07)
[2016-12-15] MEDS: Insuln Aspart Prot/Insulin Aspart 100 Units/ML 3 ML FlexPen SUBCUT SCH ×2 (07:39→17:13)
[2016-12-15] MEDS: Cholestyramine/Sucrose Powder 4 GM Packet PO SCH (07:43)
[2016-12-15] MEDS: Aspirin 325 MG Tab.EC PO SCH ×2 (07:44→17:15)
[2016-12-15] MEDS: Polyethylene Glycol 3350 Powder 510 GM Bot PO SCH (07:44)
[2016-12-15] MEDS: Ferrous Sulfate 325 MG Tab PO SCH (07:44)
[2016-12-15] MEDS: Insulin Detemir 100 Units/ML 3 ML Pen SUBCUT SCH (07:45)
[2016-12-15] MEDS: RIFAMPIN 300MG CAPSULE PO SCH (07:46)
[2016-12-15] MEDS: Cholecalciferol (Vitamin D3) 1,000 Unit Tab PO SCH (07:47)
[2016-12-15] MEDS: Acetaminophen 500 MG Tab PO SCH ×2 (07:47→17:17)
[2016-12-15] MEDS: Allopurinol 100 MG Tab PO SCH (07:48)
[2016-12-15] MEDS: Metoprolol Tartrate 50 MG Tab PO SCH ×2 (07:56→17:16)
[2016-12-15] MEDS: Digoxin 250 MCG Tab PO SCH (07:56)
[2016-12-15] MEDS: Diltiazem 180 MG Cap.CD PO SCH ×2 (07:57→17:13)
[2016-12-15] MEDS: Warfarin 2 MG Tab PO SCH (17:14)
[2016-12-15] MEDS: Rosuvastatin 10 MG Tab PO SCH (20:06)
[2016-12-15] MEDS: traMADol 50 MG Tab PO PRN (21:33)
[2016-12-16] MEDS: ceFAZolin 1 GM Vial IV SCH ×4 (00:28→23:48)
[2016-12-16] MEDS: Sodium Chloride 0.9% 10 ML Syringe FLUSH SCH ×4 (00:29→23:48)
[2016-12-16] MEDS: Sodium Chloride 0.9% 10 ML Syringe FLUSH PRN ×3 (00:30→23:53)
[2016-12-16] MEDS: Insuln Aspart Prot/Insulin Aspart 100 Units/ML 3 ML FlexPen SUBCUT SCH ×2 (08:07→17:30)
[2016-12-16] MEDS: Cholestyramine/Sucrose Powder 4 GM Packet PO SCH (08:09)
[2016-12-16] MEDS: Aspirin 325 MG Tab.EC PO SCH ×2 (08:09→17:34)
[2016-12-16] MEDS: Diltiazem 180 MG Cap.CD PO SCH ×2 (08:09→17:31)
[2016-12-16] MEDS: Ferrous Sulfate 325 MG Tab PO SCH (08:10)
[2016-12-16] MEDS: Digoxin 250 MCG Tab PO SCH (08:11)
[2016-12-16] MEDS: Insulin Detemir 100 Units/ML 3 ML Pen SUBCUT SCH (08:12)
[2016-12-16] MEDS: Polyethylene Glycol 3350 Powder 510 GM Bot PO SCH (08:13)
[2016-12-16] MEDS: Metoprolol Tartrate 50 MG Tab PO SCH ×2 (08:13→17:34)
[2016-12-16] MEDS: RIFAMPIN 300MG CAPSULE PO SCH (08:14)
[2016-12-16] MEDS: Cholecalciferol (Vitamin D3) 1,000 Unit Tab PO SCH (08:15)
[2016-12-16] MEDS: Acetaminophen 500 MG Tab PO SCH ×2 (08:15→17:35)
[2016-12-16] MEDS: Allopurinol 100 MG Tab PO SCH (08:16)
[2016-12-16] MEDS: Warfarin 2 MG Tab PO SCH (17:33)
[2016-12-16] MEDS: Rosuvastatin 10 MG Tab PO SCH (19:30)
[2016-12-16] MEDS: traMADol 50 MG Tab PO PRN (23:11)
[2016-12-17] MEDS: Insuln Aspart Prot/Insulin Aspart 100 Units/ML 3 ML FlexPen SUBCUT SCH ×2 (08:03→17:26)
[2016-12-17] MEDS: Insulin Detemir 100 Units/ML 3 ML Pen SUBCUT SCH (08:04)
[2016-12-17] MEDS: Diltiazem 180 MG Cap.CD PO SCH ×2 (08:05→17:31)
[2016-12-17] MEDS: Polyethylene Glycol 3350 Powder 510 GM Bot PO SCH (08:06)
[2016-12-17] MEDS: Cholestyramine/Sucrose Powder 4 GM Packet PO SCH (08:06)
[2016-12-17] MEDS: Aspirin 325 MG Tab.EC PO SCH ×2 (08:07→17:33)
[2016-12-17] MEDS: Ferrous Sulfate 325 MG Tab PO SCH (08:07)
[2016-12-17] MEDS: Digoxin 250 MCG Tab PO SCH (08:07)
[2016-12-17] MEDS: RIFAMPIN 300MG CAPSULE PO SCH (08:09)
[2016-12-17] MEDS: Metoprolol Tartrate 50 MG Tab PO SCH ×2 (08:09→17:34)
[2016-12-17] MEDS: Cholecalciferol (Vitamin D3) 1,000 Unit Tab PO SCH (08:10)
[2016-12-17] MEDS: Acetaminophen 500 MG Tab PO SCH ×2 (08:10→17:34)
[2016-12-17] MEDS: Allopurinol 100 MG Tab PO SCH (08:11)
[2016-12-17] MEDS: Sodium Chloride 0.9% 10 ML Syringe FLUSH SCH ×3 (08:13→23:59)
[2016-12-17] MEDS: ceFAZolin 1 GM Vial IV SCH ×2 (08:13→15:06)
[2016-12-17] MEDS: Warfarin 2 MG Tab PO SCH (17:31)
[2016-12-17] MEDS: Rosuvastatin 10 MG Tab PO SCH (19:21)
[2016-12-17] MEDS: traMADol 50 MG Tab PO PRN (22:24)
[2016-12-18] MEDS: Sodium Chloride 0.9% 10 ML Syringe FLUSH PRN ×2 (00:04→15:31)
[2016-12-18] MEDS: Insuln Aspart Prot/Insulin Aspart 100 Units/ML 3 ML FlexPen SUBCUT SCH ×2 (08:11→17:28)
[2016-12-18] MEDS: Cholestyramine/Sucrose Powder 4 GM Packet PO SCH (08:13)
[2016-12-18] MEDS: Diltiazem 180 MG Cap.CD PO SCH ×2 (08:13→17:28)
[2016-12-18] MEDS: Aspirin 325 MG Tab.EC PO SCH ×2 (08:14→17:30)
[2016-12-18] MEDS: Polyethylene Glycol 3350 Powder 510 GM Bot PO SCH (08:14)
[2016-12-18] MEDS: Ferrous Sulfate 325 MG Tab PO SCH (08:14)
[2016-12-18] MEDS: Digoxin 250 MCG Tab PO SCH (08:15)
[2016-12-18] MEDS: Insulin Detemir 100 Units/ML 3 ML Pen SUBCUT SCH (08:16)
[2016-12-18] MEDS: Metoprolol Tartrate 50 MG Tab PO SCH ×2 (08:17→17:31)
[2016-12-18] MEDS: Cholecalciferol (Vitamin D3) 1,000 Unit Tab PO SCH (08:18)
[2016-12-18] MEDS: RIFAMPIN 300MG CAPSULE PO SCH (08:18)
[2016-12-18] MEDS: Acetaminophen 500 MG Tab PO SCH ×2 (08:18→17:31)
[2016-12-18] MEDS: Allopurinol 100 MG Tab PO SCH (08:19)
[2016-12-18] MEDS: Sodium Chloride 0.9% 10 ML Syringe FLUSH SCH ×2 (08:23→15:13)
[2016-12-18] MEDS: ceFAZolin 1 GM Vial IV SCH ×3 (08:23→15:12)
[2016-12-18] MEDS: Warfarin 2 MG Tab PO SCH (17:29)
[2016-12-18] MEDS: Rosuvastatin 10 MG Tab PO SCH (19:07)
[2016-12-18] MEDS: traMADol 50 MG Tab PO PRN (22:14)
[2016-12-19] MEDS: ceFAZolin 1 GM Vial IV SCH ×3 (00:18→15:33)
[2016-12-19] MEDS: Sodium Chloride 0.9% 10 ML Syringe FLUSH SCH ×3 (00:19→15:33)
[2016-12-19] MEDS: Insuln Aspart Prot/Insulin Aspart 100 Units/ML 3 ML FlexPen SUBCUT SCH ×2 (07:59→17:02)
[2016-12-19] MEDS: Diltiazem 180 MG Cap.CD PO SCH ×2 (08:40→18:23)
[2016-12-19] MEDS: Cholestyramine/Sucrose Powder 4 GM Packet PO SCH (08:40)
[2016-12-19] MEDS: Aspirin 325 MG Tab.EC PO SCH ×2 (08:41→18:25)
[2016-12-19] MEDS: Ferrous Sulfate 325 MG Tab PO SCH (08:41)
[2016-12-19] MEDS: Digoxin 250 MCG Tab PO SCH (08:42)
[2016-12-19] MEDS: Insulin Detemir 100 Units/ML 3 ML Pen SUBCUT SCH (08:43)
[2016-12-19] MEDS: Metoprolol Tartrate 50 MG Tab PO SCH ×2 (08:43→18:26)
[2016-12-19] MEDS: Polyethylene Glycol 3350 Powder 510 GM Bot PO SCH (08:45)
[2016-12-19] MEDS: RIFAMPIN 300MG CAPSULE PO SCH (08:46)
[2016-12-19] MEDS: Acetaminophen 500 MG Tab PO SCH ×2 (08:47→18:26)
[2016-12-19] MEDS: Cholecalciferol (Vitamin D3) 1,000 Unit Tab PO SCH (08:48)
[2016-12-19] MEDS: Allopurinol 100 MG Tab PO SCH (08:49)
[2016-12-19] MEDS: Sodium Chloride 0.9% 10 ML Syringe FLUSH PRN (15:35)
[2016-12-19] MEDS: Warfarin 2 MG Tab PO SCH (18:24)
[2016-12-19] MEDS: Rosuvastatin 10 MG Tab PO SCH (20:35)
[2016-12-19] MEDS: traMADol 50 MG Tab PO PRN (21:46)
[2016-12-20] MEDS: ceFAZolin 1 GM Vial IV SCH ×3 (00:19→16:32)
[2016-12-20] MEDS: Sodium Chloride 0.9% 10 ML Syringe FLUSH SCH ×3 (00:20→16:32)
[2016-12-20] MEDS: Sodium Chloride 0.9% 10 ML Syringe FLUSH PRN (00:20)
[2016-12-20] MEDS: Insuln Aspart Prot/Insulin Aspart 100 Units/ML 3 ML FlexPen SUBCUT SCH ×2 (07:58→17:18)
[2016-12-20] MEDS: Cholestyramine/Sucrose Powder 4 GM Packet PO SCH (08:01)
[2016-12-20] MEDS: Digoxin 250 MCG Tab PO SCH (08:01)
[2016-12-20] MEDS: Allopurinol 100 MG Tab PO SCH (08:02)
[2016-12-20] MEDS: RIFAMPIN 300MG CAPSULE PO SCH (08:02)
[2016-12-20] MEDS: Diltiazem 180 MG Cap.CD PO SCH ×2 (08:04→17:20)
[2016-12-20] MEDS: Metoprolol Tartrate 50 MG Tab PO SCH ×2 (08:04→17:21)
[2016-12-20] MEDS: Aspirin 325 MG Tab.EC PO SCH ×2 (08:05→17:23)
[2016-12-20] MEDS: Insulin Detemir 100 Units/ML 3 ML Pen SUBCUT SCH (08:06)
[2016-12-20] MEDS: Ferrous Sulfate 325 MG Tab PO SCH (08:06)
[2016-12-20] MEDS: Acetaminophen 500 MG Tab PO SCH ×2 (08:07→17:24)
[2016-12-20] MEDS: Cholecalciferol (Vitamin D3) 1,000 Unit Tab PO SCH (08:08)
[2016-12-20] MEDS: Polyethylene Glycol 3350 Powder 510 GM Bot PO SCH (08:09)
[2016-12-20] MEDS: Warfarin 2 MG Tab PO SCH (17:21)
[2016-12-20] MEDS: Rosuvastatin 10 MG Tab PO SCH (19:11)
[2016-12-20] MEDS: traMADol 50 MG Tab PO PRN (21:22)
[2016-12-21] MEDS: ceFAZolin 1 GM Vial IV SCH ×3 (00:20→15:25)
[2016-12-21] MEDS: Sodium Chloride 0.9% 10 ML Syringe FLUSH SCH ×3 (00:22→15:25)
[2016-12-21] MEDS: Insuln Aspart Prot/Insulin Aspart 100 Units/ML 3 ML FlexPen SUBCUT SCH ×2 (07:57→17:32)
[2016-12-21] MEDS: Insulin Detemir 100 Units/ML 3 ML Pen SUBCUT SCH (07:58)
[2016-12-21] MEDS: Diltiazem 180 MG Cap.CD PO SCH ×2 (08:00→17:34)
[2016-12-21] MEDS: Aspirin 325 MG Tab.EC PO SCH ×2 (08:01→17:38)
[2016-12-21] MEDS: Cholestyramine/Sucrose Powder 4 GM Packet PO SCH (08:01)
[2016-12-21] MEDS: Polyethylene Glycol 3350 Powder 510 GM Bot PO SCH (08:01)
[2016-12-21] MEDS: Ferrous Sulfate 325 MG Tab PO SCH (08:02)
[2016-12-21] MEDS: Digoxin 250 MCG Tab PO SCH (08:02)
[2016-12-21] MEDS: Metoprolol Tartrate 50 MG Tab PO SCH ×2 (08:04→17:38)
[2016-12-21] MEDS: RIFAMPIN 300MG CAPSULE PO SCH (08:04)
[2016-12-21] MEDS: Acetaminophen 500 MG Tab PO SCH ×2 (08:05→17:39)
[2016-12-21] MEDS: Cholecalciferol (Vitamin D3) 1,000 Unit Tab PO SCH (08:05)
[2016-12-21] MEDS: Allopurinol 100 MG Tab PO SCH (08:06)
[2016-12-21] MEDS: Sodium Chloride 0.9% 10 ML Syringe FLUSH PRN ×2 (08:16→15:36)
[2016-12-21] MEDS: Warfarin 2 MG Tab PO SCH (17:35)
[2016-12-21] MEDS: Rosuvastatin 10 MG Tab PO SCH (19:29)
[2016-12-21] MEDS: traMADol 50 MG Tab PO PRN (23:09)
[2016-12-22] MEDS: Sodium Chloride 0.9% 10 ML Syringe FLUSH PRN ×3 (00:04→15:26)
[2016-12-22] MEDS: Insulin Detemir 100 Units/ML 3 ML Pen SUBCUT SCH (07:49)
[2016-12-22] MEDS: ceFAZolin 1 GM Vial IV SCH ×3 (07:52→15:14)
[2016-12-22] MEDS: Sodium Chloride 0.9% 10 ML Syringe FLUSH SCH ×4 (07:52→23:58)
[2016-12-22] MEDS: Insuln Aspart Prot/Insulin Aspart 100 Units/ML 3 ML FlexPen SUBCUT SCH ×2 (07:53→17:27)
[2016-12-22] MEDS: Diltiazem 180 MG Cap.CD PO SCH ×2 (07:54→17:28)
[2016-12-22] MEDS: Cholestyramine/Sucrose Powder 4 GM Packet PO SCH (07:55)
[2016-12-22] MEDS: Digoxin 250 MCG Tab PO SCH (07:55)
[2016-12-22] MEDS: Ferrous Sulfate 325 MG Tab PO SCH (07:55)
[2016-12-22] MEDS: Aspirin 325 MG Tab.EC PO SCH ×2 (07:55→17:31)
[2016-12-22] MEDS: Metoprolol Tartrate 50 MG Tab PO SCH ×2 (07:57→17:31)
[2016-12-22] MEDS: RIFAMPIN 300MG CAPSULE PO SCH (07:58)
[2016-12-22] MEDS: Polyethylene Glycol 3350 Powder 510 GM Bot PO SCH (07:58)
[2016-12-22] MEDS: Acetaminophen 500 MG Tab PO SCH ×2 (07:59→17:32)
[2016-12-22] MEDS: Cholecalciferol (Vitamin D3) 1,000 Unit Tab PO SCH (07:59)
[2016-12-22] MEDS: Allopurinol 100 MG Tab PO SCH (08:00)
[2016-12-22] MEDS ORDERED: Polyethylene Glycol 3350 Powder 510 GM Bot PO PRN (16:29)
[2016-12-22] MEDS: Warfarin 2 MG Tab PO SCH (17:29)
[2016-12-22] MEDS: Rosuvastatin 10 MG Tab PO SCH (19:18)
[2016-12-22] MEDS: traMADol 50 MG Tab PO PRN (21:22)
[2016-12-23] MEDS: Sodium Chloride 0.9% 10 ML Syringe FLUSH PRN ×3 (00:05→15:54)
[2016-12-23] MEDS: Insuln Aspart Prot/Insulin Aspart 100 Units/ML 3 ML FlexPen SUBCUT SCH ×2 (07:46→17:40)
[2016-12-23] MEDS: Aspirin 325 MG Tab.EC PO SCH ×2 (07:48→17:43)
[2016-12-23] MEDS: Diltiazem 180 MG Cap.CD PO SCH ×2 (07:48→17:41)
[2016-12-23] MEDS: Cholestyramine/Sucrose Powder 4 GM Packet PO SCH (07:48)
[2016-12-23] MEDS: Ferrous Sulfate 325 MG Tab PO SCH (07:49)
[2016-12-23] MEDS: Digoxin 250 MCG Tab PO SCH (07:49)
[2016-12-23] MEDS: Insulin Detemir 100 Units/ML 3 ML Pen SUBCUT SCH (07:50)
[2016-12-23] MEDS: Metoprolol Tartrate 50 MG Tab PO SCH ×2 (07:51→17:44)
[2016-12-23] MEDS: RIFAMPIN 300MG CAPSULE PO SCH (07:52)
[2016-12-23] MEDS: Acetaminophen 500 MG Tab PO SCH ×2 (07:53→17:44)
[2016-12-23] MEDS: Cholecalciferol (Vitamin D3) 1,000 Unit Tab PO SCH (07:53)
[2016-12-23] MEDS: Allopurinol 100 MG Tab PO SCH (07:54)
[2016-12-23] MEDS: Sodium Chloride 0.9% 10 ML Syringe FLUSH SCH ×2 (08:30→15:55)
[2016-12-23] MEDS: ceFAZolin 1 GM Vial IV SCH ×3 (08:30→15:54)
[2016-12-23] MEDS: Warfarin 2 MG Tab PO SCH (17:41)
[2016-12-23] MEDS: Rosuvastatin 10 MG Tab PO SCH (20:32)
[2016-12-23] MEDS: traMADol 50 MG Tab PO PRN (21:45)
[2016-12-24] MEDS: ceFAZolin 1 GM Vial IV SCH ×3 (00:15→15:39)
[2016-12-24] MEDS: Sodium Chloride 0.9% 10 ML Syringe FLUSH SCH ×3 (00:16→15:39)
[2016-12-24] MEDS: Insuln Aspart Prot/Insulin Aspart 100 Units/ML 3 ML FlexPen SUBCUT SCH ×2 (07:58→18:02)
[2016-12-24] MEDS: Diltiazem 180 MG Cap.CD PO SCH ×2 (07:58→18:03)
[2016-12-24] MEDS: Aspirin 325 MG Tab.EC PO SCH ×2 (08:00→18:05)
[2016-12-24] MEDS: Cholestyramine/Sucrose Powder 4 GM Packet PO SCH (08:00)
[2016-12-24] MEDS: Digoxin 250 MCG Tab PO SCH (08:01)
[2016-12-24] MEDS: Ferrous Sulfate 325 MG Tab PO SCH (08:01)
[2016-12-24] MEDS: Insulin Detemir 100 Units/ML 3 ML Pen SUBCUT SCH (08:02)
[2016-12-24] MEDS: RIFAMPIN 300MG CAPSULE PO SCH (08:03)
[2016-12-24] MEDS: Metoprolol Tartrate 50 MG Tab PO SCH ×2 (08:03→18:06)
[2016-12-24] MEDS: Acetaminophen 500 MG Tab PO SCH ×2 (08:04→18:06)
[2016-12-24] MEDS: Allopurinol 100 MG Tab PO SCH (08:05)
[2016-12-24] MEDS: Cholecalciferol (Vitamin D3) 1,000 Unit Tab PO SCH (08:05)
[2016-12-24] MEDS: Sodium Chloride 0.9% 10 ML Syringe FLUSH PRN ×2 (08:58→15:40)
[2016-12-24] MEDS: Warfarin 2 MG Tab PO SCH (18:05)
[2016-12-24] MEDS: Rosuvastatin 10 MG Tab PO SCH (21:00)
[2016-12-25] MEDS: ceFAZolin 1 GM Vial IV SCH ×3 (00:30→16:04)
[2016-12-25] MEDS: Sodium Chloride 0.9% 10 ML Syringe FLUSH SCH ×3 (00:30→16:04)
[2016-12-25] MEDS: traMADol 50 MG Tab PO PRN ×2 (01:34→21:19)
[2016-12-25] MEDS: Insuln Aspart Prot/Insulin Aspart 100 Units/ML 3 ML FlexPen SUBCUT SCH ×2 (07:41→17:56)
[2016-12-25] MEDS: Cholestyramine/Sucrose Powder 4 GM Packet PO SCH (07:48)
[2016-12-25] MEDS: Diltiazem 180 MG Cap.CD PO SCH ×2 (07:48→17:59)
[2016-12-25] MEDS: Aspirin 325 MG Tab.EC PO SCH (07:49)
[2016-12-25] MEDS: Ferrous Sulfate 325 MG Tab PO SCH (07:50)
[2016-12-25] MEDS: Digoxin 250 MCG Tab PO SCH (07:50)
[2016-12-25] MEDS: Insulin Detemir 100 Units/ML 3 ML Pen SUBCUT SCH (07:51)
[2016-12-25] MEDS: Metoprolol Tartrate 50 MG Tab PO SCH ×2 (07:52→18:02)
[2016-12-25] MEDS: RIFAMPIN 300MG CAPSULE PO SCH (07:53)
[2016-12-25] MEDS: Acetaminophen 500 MG Tab PO SCH ×2 (07:53→18:02)
[2016-12-25] MEDS: Cholecalciferol (Vitamin D3) 1,000 Unit Tab PO SCH (07:54)
[2016-12-25] MEDS: Allopurinol 100 MG Tab PO SCH (07:55)
[2016-12-25] MEDS: Sodium Chloride 0.9% 10 ML Syringe FLUSH PRN ×2 (09:22→16:04)
[2016-12-25] MEDS: Warfarin 2 MG Tab PO SCH (18:00)
[2016-12-25] MEDS: Rosuvastatin 10 MG Tab PO SCH (20:18)
[2016-12-26] MEDS: Sodium Chloride 0.9% 10 ML Syringe FLUSH SCH ×2 (00:37→08:59)
[2016-12-26] MEDS: ceFAZolin 1 GM Vial IV SCH ×2 (00:37→08:58)
[2016-12-26] MEDS: Sodium Chloride 0.9% 10 ML Syringe FLUSH PRN (07:04)
[2016-12-26] MEDS: Diltiazem 180 MG Cap.CD PO SCH (07:59)
[2016-12-26] MEDS: Insuln Aspart Prot/Insulin Aspart 100 Units/ML 3 ML FlexPen SUBCUT SCH (07:59)
[2016-12-26] MEDS: Ferrous Sulfate 325 MG Tab PO SCH (08:00)
[2016-12-26] MEDS: Digoxin 250 MCG Tab PO SCH (08:00)
[2016-12-26] MEDS: Cholestyramine/Sucrose Powder 4 GM Packet PO SCH (08:00)
[2016-12-26] MEDS: Insulin Detemir 100 Units/ML 3 ML Pen SUBCUT SCH (08:01)
[2016-12-26] MEDS: RIFAMPIN 300MG CAPSULE PO SCH (08:02)
[2016-12-26] MEDS: Metoprolol Tartrate 50 MG Tab PO SCH (08:02)
[2016-12-26] MEDS: Acetaminophen 500 MG Tab PO SCH (08:03)
[2016-12-26] MEDS: Cholecalciferol (Vitamin D3) 1,000 Unit Tab PO SCH (08:03)
[2016-12-26] MEDS: Allopurinol 100 MG Tab PO SCH (08:04)
[2016-12-26 09:00] VITALS: BP 118/67
--- NOTE | 2016-12-26 09:45 | PCM.DCSUM1 ---
Discharge Summary - Hospital Course HPI Initial Comments: See admission H&P Brief History: See admission H&P - Discharge Data Discharge Date: 12/26/16 Discharge Disposition: Home, W Home Health Agency 06 Condition: Good - Discharge Diagnosis/Problem(s) (1) Left knee pain SNOMED Code(s): 82499475 ICD Code: M25.562 - PAIN IN LEFT KNEE Status: Acute Priority: High Current Visit: Yes Onset Date: ~11/23/16 Problem Details: Physical therapy will be continued on an outpatient basis and is progressing well. Activity restrictions as per their instructions. Note recent repeat left TKA revision with patient very satisfied concerning current course of physical therapy and occupational therapy. Continue blood work and followup appointments as previously ordered as per discharge instructions. High-dose IV Ancef therapy will be continued on an outpatient basis through 01/04 with home health to be initiated an initial dose at 16:00 hours this afternoon. Note recurrent MSSA. Continue aggressive oral rifampin and IV Ancef therapy with recommended treatment until 01/04/17 as above with continued ESR and CRP elevation today. Pain under good control Qualifiers: Chronicity: chronic Qualified Code(s): M25.562 - Pain in left knee; G89.29 - Other chronic pain (2) Osteoarthritis SNOMED Code(s): 174263910 ICD Code: M19.90 - UNSPECIFIED OSTEOARTHRITIS, UNSPECIFIED SITE Status: Chronic Priority: Medium Current Visit: Yes Problem Details: Osteoarthritis otherwise stable by history. Note history of gout Qualifiers: Osteoarthritis location: multiple joints (3) Atrial fibrillation SNOMED Code(s): 95703283 ICD Code: I48.91 - UNSPECIFIED ATRIAL FIBRILLATION Status: Acute Priority : High Current Visit: Yes Problem Details: INRs were variable during his swing bed care with INR stabilized at this time including low normal therapeutic level today. Continue weekly INRs for now with Coumadin therapy to be coordinated through his regular provider, Ricky Bailey PA-C, at the [facility] in [place]. Note significantly increased current Coumadin therapy in comparison to his previous home dosage. Note that patient was previously on 4 mg daily with exception of 2 mg twice per week. No direct evidence of DVT. 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 Coumadin therapy will be continued on a long-term basis secondary to his recurrent atrial fibrillation despite discontinuation instructions received from the orthopedic surgeon on admission. Repeat Therapeutic digoxin level was therapeutic with continued close followup by his regular provider. Qualifiers: Atrial fibrillation type: chronic Qualified Code(s): I48.2 - Chronic atrial fibrillation (4) IDDM (insulin dependent diabetes mellitus) SNOMED Code(s): 58291784 ICD Code: E11.9 - TYPE 2 DIABETES MELLITUS WITHOUT COMPLICATIONS; Z79.4 - FDC (CURRENT) USE OF INSULIN Status: Chronic Priority: Medium Current Visit: Yes Problem Details: IDDM with diabetic nephropathy and neuropathy with stable Accu-Cheks during the last part of his swing bed care. Continue Accu-Cheks twice a day, a.c., today with NovoLog Mix sliding scale secondary to his current infection, although the patient has not needed supplemental sliding-scale insulin recently. (5) Renal insufficiency SNOMED Code(s): 688881588, 874733889 ICD Code: N28.9 - DISORDER OF KIDNEY AND URETER, UNSPECIFIED Status: Acute Priority: High Current Visit: Yes Problem Details: Renal function relatively stable today. Recent acute renal failure secondary to sepsis with history of chronic diabetic nephropathy and proteinuria. Continue close followup by his regular providers (6) Dyslipidemia SNOMED Code(s): 098149004 ICD Code: E78.5 - HYPERLIPIDEMIA, UNSPECIFIED Status: Chronic Priority: Medium Current Visit: Yes Problem Details: Known dyslipidemia currently under therapy (7) Hypoalbuminemia SNOMED Code(s): 696552221 ICD Code: E88.09 - OTH DISORDERS OF PLASMA-PROTEIN METABOLISM, NEC Status: Acute Priority: Medium Current Visit: Yes Problem Details: High-protein Glucerna supplements as snacks to be continued on a long-term basis. (8) Anemia SNOMED Code(s): 610653497 ICD Code: D64.9 - ANEMIA, UNSPECIFIED Status: Acute Current Visit: Yes Problem Details: Hemoglobin relatively stable at 10.6 today improved since last hemoglobin of 9.7. Likely combined postoperative anemia with additional secondary anemia secondary to his renal insufficiency. No evidence of acute GI bleed. Continue to observe closely secondary to his Coumadin. Qualifiers: Anemia type: unspecified type Qualified Code(s): D64.9 - Anemia, unspecified (9) Leukopenia SNOMED Code(s): 95976126 ICD Code: D72.819 - DECREASED WHITE BLOOD CELL COUNT, UNSPECIFIED Status: Chronic Priority: Medium Current Visit: Yes Problem Details: Occasional intermittent leukopenia relatively stable. Continue blood work as per discharge instructions then as per his regular providers Qualifiers: Leukopenia type: lymphocytopenia Qualified Code(s): D72.810 - Lymphocytopenia (10) Elevated LFTs SNOMED Code(s): 974395329 ICD Code: R79.89 - OTHER SPECIFIED ABNORMAL FINDINGS OF BLOOD CHEMISTRY Status: Acute Priority: Medium Current Visit: Yes Onset Date: 12/26/16 Problem Details: Mild LFTs elevation possibly secondary to his antibiotics and/ or dyslipidemia. Continue to observe closely with blood work as per his discharge instructions (11) Gout SNOMED Code(s): 01002679 ICD Code: M10.9 - GOUT, UNSPECIFIED Status: Chronic Priority: Medium Current Visit: Yes Problem Details: Nonsymptomatic and currently under allopurinol therapy with no attacks during his swing bed Qualifiers: Gout site: unspecified site Gout etiology: unspecified cause Chronicity: chronic Presence of tophus: without tophus Qualified Code(s): M1A.9XX0 - Chronic gout, unspecified, without tophus (tophi) - Patient Summary/Data Operative Procedure(s) Performed: None Complications: None Consults: Consultations 12/01/16 15:40 OT Evaluation and Treatment [CONS] Routine 12/01/16 16:05 PT Evaluation and Treatment [CONS] Routine Labs Pending at D/C: None Recommended Follow-up Testing/Procedures: As per discharge instructions Planned Operative Procedure(s) after DC: None Hospital Course: The patient was transferred from [facility] in [place] after repeat revision of his left total knee arthroplasty secondary to recurrent MSSA infection, including septicemia during hospitalization in [place]. High-dose IV Ancef and oral rifampin therapy were continued throughout the swing bed care with no evidence of return of his sepsis. His INRs were initially very variable but are therapeutic at time of discharge. Accu-Cheks were also somewhat variable, however no sliding scale needed during the last portion of his swing bed care. No evidence of chest pain or anginal-type symptoms during this hospitalization. Physical therapy and occupational therapy proceeded well with continuation of outpatient therapy recommended. Patient did followup with infectious disease and orthopedic clinic in [place] with weekly blood work as per their instructions. Continue outpatient antibiotic therapy as above. Otherwise no complications during his swing bed care. - Patient Instructions Diet: Heart Healthy Diet Diet, Other: 1800-calorie ADA, diverticulosis Activity: As Tolerated (And directed by physical therapy) Driving: Do Not Drive Showering/Bathing: May Shower Wound/Incision, Other: PICC line care per home health on a q. Monday basis Notify Provider of: Fever, Increased Pain, Swelling and Redness, Drainage, Nausea and/or Vomiting Other/Special Instructions: 1. Your Coumadin therapy/INRs will be controlled by your regular provider, Ricky Bailey PA-C, at the [facility]. Contact his office SUZANNA, if you have not heard from his office within 24 hours of each blood draw. Recommend weekly INRs initially until otherwise directed. 2. Continue physical therapy on an outpatient basis as per their instructions. 3. Home health with continuation of home infusions of Ancef 2 g IV every 8 hours through 01/04/17 with home infusion services to supply the Ancef and heparin with weekly PICC line dressing changes on a q. Monday basis. 4. Followup at the [place] [facility] as scheduled on 12/28 at 09 :40 hours and 01/03 at 12:00 hours with additional blood work through their facility per their instructions. 5. CBC, comprehensive metabolic panel, ESR, CRP, and INR on 01/02 with results to be faxed to Dr. Forman at the [place] [facility]. 6. High protein Glucerna supplements twice a day as snacks - Discharge Plan Prescriptions/Med Rec: Insuln Asp Prot/Insulin Aspart [NovoLOG Mix 70-30] 2 unit SUBCUT BIDAC PRN #1 pen PRN Reason: Blood Glucose Non-Formulary Medication [NF Drug] 2 each PO DAILY #18 each Sennosides/Docusate Sodium [Senna-Docusate Sodium Tablet] 8.6 - 50 mg PO BID PRN #100 tablet PRN Reason: Constipation Warfarin Sodium 2 mg PO DAILY #100 tablet Home Medications: Home Meds Allopurinol [Zyloprim] 0.5 tab PO DAILY 05/04/16 [History] Digoxin 1 tab PO QAM 05/04/16 [History] Ferrous Sulfate 1 tab PO QAM 05/04/16 [History] Insulin Detemir [Levemir Flextouch] 8 units SUBCUT QAM 05/04/16 [History] Metoprolol Tartrate 100 mg PO BID 05/04/16 [History] Penicillin V Potassium 4 tab PO ASDIRECTED 05/04/16 [History] Rosuvastatin [Crestor] 0.5 tab PO BEDTIME 05/04/16 [History] Acetaminophen 650 mg PO Q4HR PRN 12/01/16 [History] Cholecalciferol (Vitamin D3) [Vitamin D3] 2,000 units PO DAILY 12/01/16 [History ] Diltiazem [Cardizem CD] 180 mg PO BID 12/01/16 [History] Heparin Sodium,Porcine/PF [Heparin Lock Flush 100 Unit/ml] 300 unit IV ASDIRECTED PRN 12/01/16 [History] Heparin Sodium,Porcine/PF [Heparin Lock Flush 100 Unit/ml] 300 unit IV Q12HR 06/09 [History] Melatonin/Pyridoxine HCl (B6) [Melatonin 3 mg Tablet] 3 mg PO BEDTIME PRN [History] Sodium Chloride 0.9% [Saline Flush] 10 ml FLUSH ASDIRECTED PRN 12/01/16 [History ] Sodium Chloride 0.9% [Saline Flush] 10 ml FLUSH Q12HR 12/01/16 [History] Acetaminophen [Tylenol Extra Strength] 500 mg PO BID tablet 12/26/16 [Rx] Cholestyramine/Sucrose [Cholestyramine] 4 gm PO DAILY packet 12/26/16 [Rx] Insuln Asp Prot/Insulin Aspart [NovoLOG Mix 70-30] 2 unit SUBCUT BIDAC PRN #1 pen 12/26/16 [Rx] Non-Formulary Medication [NF Drug] 2 each PO DAILY #18 each 12/26/16 [Rx] Polyethylene Glycol 3350 17 gm PO QAM #1 bottle 12/26/16 [Rx] Sennosides/Docusate Sodium [Senna-Docusate Sodium Tablet] 8.6 - 50 mg PO BID PRN #100 tablet 12/26/16 [Rx] Warfarin Sodium 2 mg PO DAILY #100 tablet 12/26/16 [Rx] ceFAZolin [Ancef] 2 gm IV Q8HR #26 vial 12/26/16 [Rx] Patient Handouts: Deep Vein Thrombosis Referrals: Ricco Forman MD [Ordering Only Provider] - Arden Siddiqui MD [Ordering Only Provider] - - Discharge Summary/Plan Comment DC Time >30 min.: Yes (Coordination of care) Discharge Summary/Plan Comment: As above. Extensive precautions were given to the patient and his , who are in agreement with the treatment plan. See Patient Instructions for further treatment and plan. - General Info Date of Service: 12/26/16 Admission Dx/Problem (Free Text: 1. MSSA septicemia 2. Postoperative left knee pain Functional Status: Reports: pain controlled, tolerating diet, ambulating, urinating. Denies: new symptoms, incentive spirometry Numeric/FACES Score: 2 - Review of Systems General: Reports: No Symptoms. Denies: Fever, Weakness, Fatigue, Malaise, Chills, Night Sweats, Appetite (Appetite) HEENT: Reports: no symptoms, glasses. Denies: dysphasia, ear pain, eye pain, post nasal drip, sinus congestion, sore throat, rhinitis, visual changes Pulmonary: Reports: no symptoms. Denies: shortness of breath, pleuritic chest pain, cough, hemoptysis, wheezing Cardiovascular: Reports: No Symptoms. Denies: Chest Pain, Palpitations, Dyspnea on Exertion, Orthopnea, PND, Edema, Lightheadedness Gastrointestinal: Reports: No symptoms, Other (Normal bowel movement yesterday by his history). Denies: Abdominal pain, Constipation, Decreased appetite, Diarrhea, Difficulty swallowing, Flatus, Hematochezia, Melena, Nausea, Vomiting Genitourinary: Reports: no symptoms. Denies: dysuria, frequency, burning, pain , urgency, incontinence, hematuria, retention, flank pain Musculoskeletal: Reports: joint pain (Slowly improving left knee pain and swelling), joint swelling (As above). Denies: neck pain, shoulder pain, arm pain, back pain, leg pain Skin: Reports: other (Surgical site well-healed). Denies: pallor, diaphoresis, bruising, pruritis, rash Neurological: Reports: Difficulty Walking (Improved, secondary to recent knee surgery as above). Denies: Confusion, Dizziness, Headache, Numbness, Paresthesia, Seizure, Syncope, Tingling, Weakness, Change in Speech, Gait Disturbance Psychiatric: Reports: no symptoms. Denies: confusion, depression, anxiety, agitation, hallucinations - Patient Data Vitals - Most Recent: Last Vital Signs Temp 37.0 C 12/26/16 08:00 Pulse 0 L 12/26/16 08:02 Resp 18 12/26/16 08:00 BP 0/0 L 12/26/16 08:02 Pulse Ox 94 L 12/26/16 08:00 Weight - Most Recent: 89.902 kg Imaging Impressions - Last 24 hrs: None Lab Results - Last 24 hrs: Laboratory Results - last 24 hr 12/25/16 12/26/16 12/26/16 Range/Units 17:12 07:00 07:00 WBC 3.6 L (4.0-10.2) K/uL RBC 3.49 L (4.33-5.41) M/uL Hgb 10.6 L (13.1-16.8) g/dL Hct 33.9 L (39.0-49.0) % MCV 97.1 (84.0-98.0) fL MCH 30.4 (28.2-33.3) pg MCHC 31.3 L (31.7-36.0) g/dL RDW 12.7 (11.2-14.1) % Plt Count 219 (150-350) K/uL Neut % (Auto) 65.3 (45.0-80.0) % Lymph % (Auto) 22.0 (10.0-50.0) % Butler % (Auto) 8.8 (2.0-14.0) % Eos % (Auto) 3.6 (0.0-5.0) % Baso % (Auto) 0.3 (0.0-2.0) % Neut # (Auto) 2.37 (1.40-7.00) K/uL Lymph # (Auto) 0.80 (0.50-3.50) K/uL Butler # (Auto) 0.32 (0.00-1.00) K/uL Eos # (Auto) 0.13 (0.00-0.50) K/uL Baso # (Auto) 0.01 (0.00-0.20) K/uL ESR 63 H (0-20) mm/hr PT (9.8-11.7) SEC INR Sodium 140 (136-145) mmol/L Potassium 4.7 (3.5-5.1) mmol/L Chloride 104 (98-107) mmol/L Carbon Dioxide 29.9 (21.0-32.0) mmol/L BUN 23 H (7-18) mg/dL Creatinine 1.33 H (0.51-1.17) mg/dL Est Cr Clr Drug Dosing 50.44 mL/min Estimated GFR (MDRD) 53 mL/min Glucose 100 (74-106) mg/dL POC Glucose 134 H (65-110) mg/dl Calcium 8.7 (8.5-10.1) mg/dL Total Bilirubin 0.2 (0.2-1.0) mg/dL AST 38 H (15-37) U/L ALT 17 (12-78) U/L Alkaline Phosphatase 115 (46-116) IU/L C-Reactive Protein 4.2 H (<=0.9) mg/dL Total Protein 6.4 (6.4-8.2) g/dL Albumin 2.7 L (3.4-5.0) g/dL 12/26/16 12/26/16 Range/Units 07:00 07:13 WBC (4.0-10.2) K/uL RBC (4.33-5.41) M/uL Hgb (13.1-16.8) g/dL Hct (39.0-49.0) % MCV (84.0-98.0) fL MCH (28.2-33.3) pg MCHC (31.7-36.0) g/dL RDW (11.2-14.1) % Plt Count (150-350) K/uL Neut % (Auto) (45.0-80.0) % Lymph % (Auto) (10.0-50.0) % Butler % (Auto) (2.0-14.0) % Eos % (Auto) (0.0-5.0) % Baso % (Auto) (0.0-2.0) % Neut # (Auto) (1.40-7.00) K/uL Lymph # (Auto) (0.50-3.50) K/uL Butler # (Auto) (0.00-1.00) K/uL Eos # (Auto) (0.00-0.50) K/uL Baso # (Auto) (0.00-0.20) K/uL ESR (0-20) mm/hr PT 21.9 H (9.8-11.7) SEC INR 2.0 Sodium (136-145) mmol/L Potassium (3.5-5.1) mmol/L Chloride (98-107) mmol/L Carbon Dioxide (21.0-32.0) mmol/L BUN (7-18) mg/dL Creatinine (0.51-1.17) mg/dL Est Cr Clr Drug Dosing mL/min Estimated GFR (MDRD) mL/min Glucose (74-106) mg/dL POC Glucose 102 (65-110) mg/dl Calcium (8.5-10.1) mg/dL Total Bilirubin (0.2-1.0) mg/dL AST (15-37) U/L ALT (12-78) U/L Alkaline Phosphatase (46-116) IU/L C-Reactive Protein (<=0.9) mg/dL Total Protein (6.4-8.2) g/dL Albumin (3.4-5.0) g/dL Laboratory Tests 12/01/16 12/01/16 12/01/16 Range/Units 17:20 17:48 20:30 WBC (4.0-10.2) K/uL RBC (4.33-5.41) M/uL Hgb (13.1-16.8) g/dL Hct (39.0-49.0) % MCV (84.0-98.0) fL MCH (28.2-33.3) pg MCHC (31.7-36.0) g/dL RDW (11.2-14.1) % Plt Count (150-350) K/uL Neut % (Auto) (45.0-80.0) % Lymph % (Auto) (10.0-50.0) % Butler % (Auto) (2.0-14.0) % Eos % (Auto) (0.0-5.0) % Baso % (Auto) (0.0-2.0) % Neut # (Auto) (1.40-7.00) K/uL Lymph # (Auto) (0.50-3.50) K/uL Butler # (Auto) (0.00-1.00) K/uL Eos # (Auto) (0.00-0.50) K/uL Baso # (Auto) (0.00-0.20) K/uL ESR (0-20) mm/hr PT (9.8-11.7) SEC INR Sodium (136-145) mmol/L Potassium (3.5-5.1) mmol/L Chloride (98-107) mmol/L Carbon Dioxide (21.0-32.0) mmol/L BUN (7-18) mg/dL Creatinine (0.51-1.17) mg/dL Est Cr Clr Drug Dosing mL/min Estimated GFR (MDRD) mL/min Glucose (74-106) mg/dL POC Glucose 129 H 187 H (65-110) mg/dl Calcium (8.5-10.1) mg/dL Total Bilirubin (0.2-1.0) mg/dL AST (15-37) U/L ALT (12-78) U/L Alkaline Phosphatase (46-116) IU/L C-Reactive Protein (<=0.9) mg/dL Total Protein (6.4-8.2) g/dL Albumin (3.4-5.0) g/dL Digoxin 0.44 L (0.90-2.00) ng/mL 12/02/16 12/02/16 12/02/16 Range/Units 06:15 06:15 06:15 WBC 9.9 (4.0-10.2) K/uL RBC 3.38 L (4.33-5.41) M/uL Hgb 10.5 L (13.1-16.8) g/dL Hct 32.8 L (39.0-49.0) % MCV 97.0 (84.0-98.0) fL MCH 31.1 (28.2-33.3) pg MCHC 32.0 (31.7-36.0) g/dL RDW 12.2 (11.2-14.1) % Plt Count 429 H (150-350) K/uL Neut % (Auto) 80.1 H (45.0-80.0) % Lymph % (Auto) 9.6 L (10.0-50.0) % Butler % (Auto) 7.9 (2.0-14.0) % Eos % (Auto) 2.1 (0.0-5.0) % Baso % (Auto) 0.3 (0.0-2.0) % Neut # (Auto) 7.94 H (1.40-7.00) K/uL Lymph # (Auto) 0.95 (0.50-3.50) K/uL Butler # (Auto) 0.78 (0.00-1.00) K/uL Eos # (Auto) 0.21 (0.00-0.50) K/uL Baso # (Auto) 0.03 (0.00-0.20) K/uL ESR (0-20) mm/hr PT 13.4 H D (9.8-11.7) SEC INR 1.2 Sodium 137 (136-145) mmol/L Potassium 5.1 (3.5-5.1) mmol/L Chloride 103 (98-107) mmol/L Carbon Dioxide 27.8 (21.0-32.0) mmol/L BUN 39 H (7-18) mg/dL Creatinine 1.48 H (0.51-1.17) mg/dL Est Cr Clr Drug Dosing 45.21 mL/min Estimated GFR (MDRD) 46 mL/min Glucose 141 H (74-106) mg/dL POC Glucose (65-110) mg/dl Calcium 8.4 L (8.5-10.1) mg/dL Total Bilirubin 0.4 (0.2-1.0) mg/dL AST 24 (15-37) U/L ALT 8 L (12-78) U/L Alkaline Phosphatase 75 (46-116) IU/L C-Reactive Protein (<=0.9) mg/dL Total Protein 5.9 L (6.4-8.2) g/dL Albumin 2.2 L (3.4-5.0) g/dL Digoxin (0.90-2.00) ng/mL 12/02/16 12/02/16 12/02/16 Range/Units 08:06 11:26 18:00 WBC (4.0-10.2) K/uL RBC (4.33-5.41) M/uL Hgb (13.1-16.8) g/dL Hct (39.0-49.0) % MCV (84.0-98.0) fL MCH (28.2-33.3) pg MCHC (31.7-36.0) g/dL RDW (11.2-14.1) % Plt Count (150-350) K/uL Neut % (Auto) (45.0-80.0) % Lymph % (Auto) (10.0-50.0) % Butler % (Auto) (2.0-14.0) % Eos % (Auto) (0.0-5.0) % Baso % (Auto) (0.0-2.0) % Neut # (Auto) (1.40-7.00) K/uL Lymph # (Auto) (0.50-3.50) K/uL Butler # (Auto) (0.00-1.00) K/uL Eos # (Auto) (0.00-0.50) K/uL Baso # (Auto) (0.00-0.20) K/uL ESR (0-20) mm/hr PT (9.8-11.7) SEC INR Sodium (136-145) mmol/L Potassium (3.5-5.1) mmol/L Chloride (98-107) mmol/L Carbon Dioxide (21.0-32.0) mmol/L BUN (7-18) mg/dL Creatinine (0.51-1.17) mg/dL Est Cr Clr Drug Dosing mL/min Estimated GFR (MDRD) mL/min Glucose (74-106) mg/dL POC Glucose 132 H 154 H 121 H (65-110) mg/dl Calcium (8.5-10.1) mg/dL Total Bilirubin (0.2-1.0) mg/dL AST (15-37) U/L ALT (12-78) U/L Alkaline Phosphatase (46-116) IU/L C-Reactive Protein (<=0.9) mg/dL Total Protein (6.4-8.2) g/dL Albumin (3.4-5.0) g/dL Digoxin (0.90-2.00) ng/mL 12/02/16 12/03/16 12/03/16 Range/Units 20:49 06:05 06:37 WBC (4.0-10.2) K/uL RBC (4.33-5.41) M/uL Hgb (13.1-16.8) g/dL Hct (39.0-49.0) % MCV (84.0-98.0) fL MCH (28.2-33.3) pg MCHC (31.7-36.0) g/dL RDW (11.2-14.1) % Plt Count (150-350) K/uL Neut % (Auto) (45.0-80.0) % Lymph % (Auto) (10.0-50.0) % Butler % (Auto) (2.0-14.0) % Eos % (Auto) (0.0-5.0) % Baso % (Auto) (0.0-2.0) % Neut # (Auto) (1.40-7.00) K/uL Lymph # (Auto) (0.50-3.50) K/uL Butler # (Auto) (0.00-1.00) K/uL Eos # (Auto) (0.00-0.50) K/uL Baso # (Auto) (0.00-0.20) K/uL ESR (0-20) mm/hr PT (9.8-11.7) SEC INR 1.6 Sodium (136-145) mmol/L Potassium (3.5-5.1) mmol/L Chloride (98-107) mmol/L Carbon Dioxide (21.0-32.0) mmol/L BUN (7-18) mg/dL Creatinine (0.51-1.17) mg/dL Est Cr Clr Drug Dosing mL/min Estimated GFR (MDRD) mL/min Glucose (74-106) mg/dL POC Glucose 192 H 123 H (65-110) mg/dl Calcium (8.5-10.1) mg/dL Total Bilirubin (0.2-1.0) mg/dL AST (15-37) U/L ALT (12-78) U/L Alkaline Phosphatase (46-116) IU/L C-Reactive Protein (<=0.9) mg/dL Total Protein (6.4-8.2) g/dL Albumin (3.4-5.0) g/dL Digoxin (0.90-2.00) ng/mL 12/03/16 12/03/1617 Range/Units 11:32 18:03 21:05 WBC (4.0-10.2) K/uL RBC (4.33-5.41) M/uL Hgb (13.1-16.8) g/dL Hct (39.0-49.0) % MCV (84.0-98.0) fL MCH (28.2-33.3) pg MCHC (31.7-36.0) g/dL RDW (11.2-14.1) % Plt Count (150-350) K/uL Neut % (Auto) (45.0-80.0) % Lymph % (Auto) (10.0-50.0) % Butler % (Auto) (2.0-14.0) % Eos % (Auto) (0.0-5.0) % Baso % (Auto) (0.0-2.0) % Neut # (Auto) (1.40-7.00) K/uL Lymph # (Auto) (0.50-3.50) K/uL Butler # (Auto) (0.00-1.00) K/uL Eos # (Auto) (0.00-0.50) K/uL Baso # (Auto) (0.00-0.20) K/uL ESR (0-20) mm/hr PT (9.8-11.7) SEC INR Sodium (136-145) mmol/L Potassium (3.5-5.1) mmol/L Chloride (98-107) mmol/L Carbon Dioxide (21.0-32.0) mmol/L BUN (7-18) mg/dL Creatinine (0.51-1.17) mg/dL Est Cr Clr Drug Dosing mL/min Estimated GFR (MDRD) mL/min Glucose (74-106) mg/dL POC Glucose 158 H 104 160 H (65-110) mg/dl Calcium (8.5-10.1) mg/dL Total Bilirubin (0.2-1.0) mg/dL AST (15-37) U/L ALT (12-78) U/L Alkaline Phosphatase (46-116) IU/L C-Reactive Protein (<=0.9) mg/dL Total Protein (6.4-8.2) g/dL Albumin (3.4-5.0) g/dL Digoxin (0.90-2.00) ng/mL 12/04/16 12/04/16 12/04/16 Range/Units 07:10 07:12 11:32 WBC (4.0-10.2) K/uL RBC (4.33-5.41) M/uL Hgb (13.1-16.8) g/dL Hct (39.0-49.0) % MCV (84.0-98.0) fL MCH (28.2-33.3) pg MCHC (31.7-36.0) g/dL RDW (11.2-14.1) % Plt Count (150-350) K/uL Neut % (Auto) (45.0-80.0) % Lymph % (Auto) (10.0-50.0) % Butler % (Auto) (2.0-14.0) % Eos % (Auto) (0.0-5.0) % Baso % (Auto) (0.0-2.0) % Neut # (Auto) (1.40-7.00) K/uL Lymph # (Auto) (0.50-3.50) K/uL Butler # (Auto) (0.00-1.00) K/uL Eos # (Auto) (0.00-0.50) K/uL Baso # (Auto) (0.00-0.20) K/uL ESR (0-20) mm/hr PT (9.8-11.7) SEC INR 2.3 Sodium (136-145) mmol/L Potassium (3.5-5.1) mmol/L Chloride (98-107) mmol/L Carbon Dioxide (21.0-32.0) mmol/L BUN (7-18) mg/dL Creatinine (0.51-1.17) mg/dL Est Cr Clr Drug Dosing mL/min Estimated GFR (MDRD) mL/min Glucose (74-106) mg/dL POC Glucose 124 H 167 H (65-110) mg/dl Calcium (8.5-10.1) mg/dL Total Bilirubin (0.2-1.0) mg/dL AST (15-37) U/L ALT (12-78) U/L Alkaline Phosphatase (46-116) IU/L C-Reactive Protein (<=0.9) mg/dL Total Protein (6.4-8.2) g/dL Albumin (3.4-5.0) g/dL Digoxin (0.90-2.00) ng/mL 12/04/16 12/04/16 12/05/16 Range/Units 17:34 20:43 06:55 WBC (4.0-10.2) K/uL RBC (4.33-5.41) M/uL Hgb (13.1-16.8) g/dL Hct (39.0-49.0) % MCV (84.0-98.0) fL MCH (28.2-33.3) pg MCHC (31.7-36.0) g/dL RDW (11.2-14.1) % Plt Count (150-350) K/uL Neut % (Auto) (45.0-80.0) % Lymph % (Auto) (10.0-50.0) % Butler % (Auto) (2.0-14.0) % Eos % (Auto) (0.0-5.0) % Baso % (Auto) (0.0-2.0) % Neut # (Auto) (1.40-7.00) K/uL Lymph # (Auto) (0.50-3.50) K/uL Butler # (Auto) (0.00-1.00) K/uL Eos # (Auto) (0.00-0.50) K/uL Baso # (Auto) (0.00-0.20) K/uL ESR (0-20) mm/hr PT 22.5 H D (9.8-11.7) SEC INR 2.0 Sodium (136-145) mmol/L Potassium (3.5-5.1) mmol/L Chloride (98-107) mmol/L Carbon Dioxide (21.0-32.0) mmol/L BUN (7-18) mg/dL Creatinine (0.51-1.17) mg/dL Est Cr Clr Drug Dosing mL/min Estimated GFR (MDRD) mL/min Glucose (74-106) mg/dL POC Glucose 110 213 H (65-110) mg/dl Calcium (8.5-10.1) mg/dL Total Bilirubin (0.2-1.0) mg/dL AST (15-37) U/L ALT (12-78) U/L Alkaline Phosphatase (46-116) IU/L C-Reactive Protein (<=0.9) mg/dL Total Protein (6.4-8.2) g/dL Albumin (3.4-5.0) g/dL Digoxin (0.90-2.00) ng/mL 12/05/16 12/05/16 12/05/16 Range/Units 06:55 06:55 06:57 WBC 8.8 (4.0-10.2) K/uL RBC 3.56 L (4.33-5.41) M/uL Hgb 10.9 L (13.1-16.8) g/dL Hct 34.3 L (39.0-49.0) % MCV 96.3 (84.0-98.0) fL MCH 30.6 (28.2-33.3) pg MCHC 31.8 (31.7-36.0) g/dL RDW 12.7 (11.2-14.1) % Plt Count 540 H D (150-350) K/uL Neut % (Auto) 77.5 (45.0-80.0) % Lymph % (Auto) 12.3 (10.0-50.0) % Butler % (Auto) 8.0 (2.0-14.0) % Eos % (Auto) 1.6 (0.0-5.0) % Baso % (Auto) 0.6 (0.0-2.0) % Neut # (Auto) 6.81 (1.40-7.00) K/uL Lymph # (Auto) 1.08 (0.50-3.50) K/uL Butler # (Auto) 0.70 (0.00-1.00) K/uL Eos # (Auto) 0.14 (0.00-0.50) K/uL Baso # (Auto) 0.05 (0.00-0.20) K/uL ESR 84 H (0-20) mm/hr PT (9.8-11.7) SEC INR Sodium 137 (136-145) mmol/L Potassium 5.1 (3.5-5.1) mmol/L Chloride 104 (98-107) mmol/L Carbon Dioxide 27.2 (21.0-32.0) mmol/L BUN 43 H (7-18) mg/dL Creatinine 1.58 H (0.51-1.17) mg/dL Est Cr Clr Drug Dosing 42.46 mL/min Estimated GFR (MDRD) 43 mL/min Glucose 128 H (74-106) mg/dL POC Glucose 125 H (65-110) mg/dl Calcium 8.7 (8.5-10.1) mg/dL Total Bilirubin 0.3 (0.2-1.0) mg/dL AST 49 H (15-37) U/L ALT 17 (12-78) U/L Alkaline Phosphatase 90 (46-116) IU/L C-Reactive Protein 8.7 H (<=0.9) mg/dL Total Protein 6.1 L (6.4-8.2) g/dL Albumin 2.4 L (3.4-5.0) g/dL Digoxin (0.90-2.00) ng/mL 12/05/16 12/05/16 12/06/16 Range/Units 11:20 16:50 06:25 WBC (4.0-10.2) K/uL RBC (4.33-5.41) M/uL Hgb (13.1-16.8) g/dL Hct (39.0-49.0) % MCV (84.0-98.0) fL MCH (28.2-33.3) pg MCHC (31.7-36.0) g/dL RDW (11.2-14.1) % Plt Count (150-350) K/uL Neut % (Auto) (45.0-80.0) % Lymph % (Auto) (10.0-50.0) % Butler % (Auto) (2.0-14.0) % Eos % (Auto) (0.0-5.0) % Baso % (Auto) (0.0-2.0) % Neut # (Auto) (1.40-7.00) K/uL Lymph # (Auto) (0.50-3.50) K/uL Butler # (Auto) (0.00-1.00) K/uL Eos # (Auto) (0.00-0.50) K/uL Baso # (Auto) (0.00-0.20) K/uL ESR (0-20) mm/hr PT (9.8-11.7) SEC INR Sodium (136-145) mmol/L Potassium (3.5-5.1) mmol/L Chloride (98-107) mmol/L Carbon Dioxide (21.0-32.0) mmol/L BUN (7-18) mg/dL Creatinine (0.51-1.17) mg/dL Est Cr Clr Drug Dosing mL/min Estimated GFR (MDRD) mL/min Glucose (74-106) mg/dL POC Glucose 158 H 154 H 119 H (65-110) mg/dl Calcium (8.5-10.1) mg/dL Total Bilirubin (0.2-1.0) mg/dL AST (15-37) U/L ALT (12-78) U/L Alkaline Phosphatase (46-116) IU/L C-Reactive Protein (<=0.9) mg/dL Total Protein (6.4-8.2) g/dL Albumin (3.4-5.0) g/dL Digoxin (0.90-2.00) ng/mL 12/06/16 12/06/16 12/07/16 Range/Units 06:28 16:57 07:57 WBC (4.0-10.2) K/uL RBC (4.33-5.41) M/uL Hgb (13.1-16.8) g/dL Hct (39.0-49.0) % MCV (84.0-98.0) fL MCH (28.2-33.3) pg MCHC (31.7-36.0) g/dL RDW (11.2-14.1) % Plt Count (150-350) K/uL Neut % (Auto) (45.0-80.0) % Lymph % (Auto) (10.0-50.0) % Butler % (Auto) (2.0-14.0) % Eos % (Auto) (0.0-5.0) % Baso % (Auto) (0.0-2.0) % Neut # (Auto) (1.40-7.00) K/uL Lymph # (Auto) (0.50-3.50) K/uL Butler # (Auto) (0.00-1.00) K/uL Eos # (Auto) (0.00-0.50) K/uL Baso # (Auto) (0.00-0.20) K/uL ESR (0-20) mm/hr PT (9.8-11.7) SEC INR 2.5 Sodium (136-145) mmol/L Potassium (3.5-5.1) mmol/L Chloride (98-107) mmol/L Carbon Dioxide (21.0-32.0) mmol/L BUN (7-18) mg/dL Creatinine (0.51-1.17) mg/dL Est Cr Clr Drug Dosing mL/min Estimated GFR (MDRD) mL/min Glucose (74-106) mg/dL POC Glucose 109 117 H (65-110) mg/dl Calcium (8.5-10.1) mg/dL Total Bilirubin (0.2-1.0) mg/dL AST (15-37) U/L ALT (12-78) U/L Alkaline Phosphatase (46-116) IU/L C-Reactive Protein (<=0.9) mg/dL Total Protein (6.4-8.2) g/dL Albumin (3.4-5.0) g/dL Digoxin (0.90-2.00) ng/mL 12/07/16 12/08/16 12/08/16 Range/Units 16:33 08:33 17:54 WBC (4.0-10.2) K/uL RBC (4.33-5.41) M/uL Hgb (13.1-16.8) g/dL Hct (39.0-49.0) % MCV (84.0-98.0) fL MCH (28.2-33.3) pg MCHC (31.7-36.0) g/dL RDW (11.2-14.1) % Plt Count (150-350) K/uL Neut % (Auto) (45.0-80.0) % Lymph % (Auto) (10.0-50.0) % Butler % (Auto) (2.0-14.0) % Eos % (Auto) (0.0-5.0) % Baso % (Auto) (0.0-2.0) % Neut # (Auto) (1.40-7.00) K/uL Lymph # (Auto) (0.50-3.50) K/uL Butler # (Auto) (0.00-1.00) K/uL Eos # (Auto) (0.00-0.50) K/uL Baso # (Auto) (0.00-0.20) K/uL ESR (0-20) mm/hr PT (9.8-11.7) SEC INR Sodium (136-145) mmol/L Potassium (3.5-5.1) mmol/L Chloride (98-107) mmol/L Carbon Dioxide (21.0-32.0) mmol/L BUN (7-18) mg/dL Creatinine (0.51-1.17) mg/dL Est Cr Clr Drug Dosing mL/min Estimated GFR (MDRD) mL/min Glucose (74-106) mg/dL POC Glucose 143 H 119 H 101 (65-110) mg/dl Calcium (8.5-10.1) mg/dL Total Bilirubin (0.2-1.0) mg/dL AST (15-37) U/L ALT (12-78) U/L Alkaline Phosphatase (46-116) IU/L C-Reactive Protein (<=0.9) mg/dL Total Protein (6.4-8.2) g/dL Albumin (3.4-5.0) g/dL Digoxin (0.90-2.00) ng/mL 12/09/16 12/09/16 12/10/16 Range/Units 08:00 17:53 07:53 WBC (4.0-10.2) K/uL RBC (4.33-5.41) M/uL Hgb (13.1-16.8) g/dL Hct (39.0-49.0) % MCV (84.0-98.0) fL MCH (28.2-33.3) pg MCHC (31.7-36.0) g/dL RDW (11.2-14.1) % Plt Count (150-350) K/uL Neut % (Auto) (45.0-80.0) % Lymph % (Auto) (10.0-50.0) % Butler % (Auto) (2.0-14.0) % Eos % (Auto) (0.0-5.0) % Baso % (Auto) (0.0-2.0) % Neut # (Auto) (1.40-7.00) K/uL Lymph # (Auto) (0.50-3.50) K/uL Butler # (Auto) (0.00-1.00) K/uL Eos # (Auto) (0.00-0.50) K/uL Baso # (Auto) (0.00-0.20) K/uL ESR (0-20) mm/hr PT (9.8-11.7) SEC INR Sodium (136-145) mmol/L Potassium (3.5-5.1) mmol/L Chloride (98-107) mmol/L Carbon Dioxide (21.0-32.0) mmol/L BUN (7-18) mg/dL Creatinine (0.51-1.17) mg/dL Est Cr Clr Drug Dosing mL/min Estimated GFR (MDRD) mL/min Glucose (74-106) mg/dL POC Glucose 137 H 108 117 H (65-110) mg/dl Calcium (8.5-10.1) mg/dL Total Bilirubin (0.2-1.0) mg/dL AST (15-37) U/L ALT (12-78) U/L Alkaline Phosphatase (46-116) IU/L C-Reactive Protein (<=0.9) mg/dL Total Protein (6.4-8.2) g/dL Albumin (3.4-5.0) g/dL Digoxin (0.90-2.00) ng/mL 12/10/16 12/10/16 12/11/16 Range/Units 08:55 17:39 06:57 WBC (4.0-10.2) K/uL RBC (4.33-5.41) M/uL Hgb (13.1-16.8) g/dL Hct (39.0-49.0) % MCV (84.0-98.0) fL MCH (28.2-33.3) pg MCHC (31.7-36.0) g/dL RDW (11.2-14.1) % Plt Count (150-350) K/uL Neut % (Auto) (45.0-80.0) % Lymph % (Auto) (10.0-50.0) % Butler % (Auto) (2.0-14.0) % Eos % (Auto) (0.0-5.0) % Baso % (Auto) (0.0-2.0) % Neut # (Auto) (1.40-7.00) K/uL Lymph # (Auto) (0.50-3.50) K/uL Butler # (Auto) (0.00-1.00) K/uL Eos # (Auto) (0.00-0.50) K/uL Baso # (Auto) (0.00-0.20) K/uL ESR (0-20) mm/hr PT (9.8-11.7) SEC INR 1.6 Sodium (136-145) mmol/L Potassium (3.5-5.1) mmol/L Chloride (98-107) mmol/L Carbon Dioxide (21.0-32.0) mmol/L BUN (7-18) mg/dL Creatinine (0.51-1.17) mg/dL Est Cr Clr Drug Dosing mL/min Estimated GFR (MDRD) mL/min Glucose (74-106) mg/dL POC Glucose 99 115 H (65-110) mg/dl Calcium (8.5-10.1) mg/dL Total Bilirubin (0.2-1.0) mg/dL AST (15-37) U/L ALT (12-78) U/L Alkaline Phosphatase (46-116) IU/L C-Reactive Protein (<=0.9) mg/dL Total Protein (6.4-8.2) g/dL Albumin (3.4-5.0) g/dL Digoxin (0.90-2.00) ng/mL 12/11/16 12/11/16 12/12/16 Range/Units 08:50 19:51 05:11 WBC (4.0-10.2) K/uL RBC (4.33-5.41) M/uL Hgb (13.1-16.8) g/dL Hct (39.0-49.0) % MCV (84.0-98.0) fL MCH (28.2-33.3) pg MCHC (31.7-36.0) g/dL RDW (11.2-14.1) % Plt Count (150-350) K/uL Neut % (Auto) (45.0-80.0) % Lymph % (Auto) (10.0-50.0) % Butler % (Auto) (2.0-14.0) % Eos % (Auto) (0.0-5.0) % Baso % (Auto) (0.0-2.0) % Neut # (Auto) (1.40-7.00) K/uL Lymph # (Auto) (0.50-3.50) K/uL Butler # (Auto) (0.00-1.00) K/uL Eos # (Auto) (0.00-0.50) K/uL Baso # (Auto) (0.00-0.20) K/uL ESR (0-20) mm/hr PT (9.8-11.7) SEC INR 1.7 Sodium 140 (136-145) mmol/L Potassium 4.9 (3.5-5.1) mmol/L Chloride 107 (98-107) mmol/L Carbon Dioxide 27.3 (21.0-32.0) mmol/L BUN 39 H (7-18) mg/dL Creatinine 1.49 H (0.51-1.17) mg/dL Est Cr Clr Drug Dosing 45.02 mL/min Estimated GFR (MDRD) 46 mL/min Glucose 116 H (74-106) mg/dL POC Glucose 212 H (65-110) mg/dl Calcium 8.5 (8.5-10.1) mg/dL Total Bilirubin 0.2 (0.2-1.0) mg/dL AST 30 (15-37) U/L ALT 17 (12-78) U/L Alkaline Phosphatase 92 (46-116) IU/L C-Reactive Protein 5.8 H (<=0.9) mg/dL Total Protein 6.0 L (6.4-8.2) g/dL Albumin 2.3 L (3.4-5.0) g/dL Digoxin (0.90-2.00) ng/mL 05/22/17 05/22/17 05/22/17 Range/Units 06:25 06:25 06:25 WBC 4.9 (4.0-10.2) K/uL RBC 3.34 L (4.33-5.41) M/uL Hgb 10.1 L (13.1-16.8) g/dL Hct 32.5 L (39.0-49.0) % MCV 97.3 (84.0-98.0) fL MCH 30.2 (28.2-33.3) pg MCHC 31.1 L (31.7-36.0) g/dL RDW 12.5 (11.2-14.1) % Plt Count 347 D (150-350) K/uL Neut % (Auto) 64.8 (45.0-80.0) % Lymph % (Auto) 20.9 (10.0-50.0) % Butler % (Auto) 9.6 (2.0-14.0) % Eos % (Auto) 3.7 (0.0-5.0) % Baso % (Auto) 1.0 (0.0-2.0) % Neut # (Auto) 3.19 (1.40-7.00) K/uL Lymph # (Auto) 1.03 (0.50-3.50) K/uL Butler # (Auto) 0.47 (0.00-1.00) K/uL Eos # (Auto) 0.18 (0.00-0.50) K/uL Baso # (Auto) 0.05 (0.00-0.20) K/uL ESR 66 H (0-20) mm/hr PT 17.6 H (9.8-11.7) SEC INR 1.6 Sodium (136-145) mmol/L Potassium (3.5-5.1) mmol/L Chloride (98-107) mmol/L Carbon Dioxide (21.0-32.0) mmol/L BUN (7-18) mg/dL Creatinine (0.51-1.17) mg/dL Est Cr Clr Drug Dosing mL/min Estimated GFR (MDRD) mL/min Glucose (74-106) mg/dL POC Glucose (65-110) mg/dl Calcium (8.5-10.1) mg/dL Total Bilirubin (0.2-1.0) mg/dL AST (15-37) U/L ALT (12-78) U/L Alkaline Phosphatase (46-116) IU/L C-Reactive Protein (<=0.9) mg/dL Total Protein (6.4-8.2) g/dL Albumin (3.4-5.0) g/dL Digoxin (0.90-2.00) ng/mL 12/12/16 12/13/16 12/13/16 Range/Units 14:00 06:47 06:50 WBC (4.0-10.2) K/uL RBC (4.33-5.41) M/uL Hgb (13.1-16.8) g/dL Hct (39.0-49.0) % MCV (84.0-98.0) fL MCH (28.2-33.3) pg MCHC (31.7-36.0) g/dL RDW (11.2-14.1) % Plt Count (150-350) K/uL Neut % (Auto) (45.0-80.0) % Lymph % (Auto) (10.0-50.0) % Butler % (Auto) (2.0-14.0) % Eos % (Auto) (0.0-5.0) % Baso % (Auto) (0.0-2.0) % Neut # (Auto) (1.40-7.00) K/uL Lymph # (Auto) (0.50-3.50) K/uL Butler # (Auto) (0.00-1.00) K/uL Eos # (Auto) (0.00-0.50) K/uL Baso # (Auto) (0.00-0.20) K/uL ESR (0-20) mm/hr PT (9.8-11.7) SEC INR 2.7 Sodium (136-145) mmol/L Potassium (3.5-5.1) mmol/L Chloride (98-107) mmol/L Carbon Dioxide (21.0-32.0) mmol/L BUN (7-18) mg/dL Creatinine (0.51-1.17) mg/dL Est Cr Clr Drug Dosing mL/min Estimated GFR (MDRD) mL/min Glucose (74-106) mg/dL POC Glucose 110 (65-110) mg/dl Calcium (8.5-10.1) mg/dL Total Bilirubin (0.2-1.0) mg/dL AST (15-37) U/L ALT (12-78) U/L Alkaline Phosphatase (46-116) IU/L C-Reactive Protein (<=0.9) mg/dL Total Protein (6.4-8.2) g/dL Albumin (3.4-5.0) g/dL Digoxin 1.07 (0.90-2.00) ng/mL 12/13/16 12/14/16 12/14/16 Range/Units 16:44 07:06 17:19 WBC (4.0-10.2) K/uL RBC (4.33-5.41) M/uL Hgb (13.1-16.8) g/dL Hct (39.0-49.0) % MCV (84.0-98.0) fL MCH (28.2-33.3) pg MCHC (31.7-36.0) g/dL RDW (11.2-14.1) % Plt Count (150-350) K/uL Neut % (Auto) (45.0-80.0) % Lymph % (Auto) (10.0-50.0) % Butler % (Auto) (2.0-14.0) % Eos % (Auto) (0.0-5.0) % Baso % (Auto) (0.0-2.0) % Neut # (Auto) (1.40-7.00) K/uL Lymph # (Auto) (0.50-3.50) K/uL Butler # (Auto) (0.00-1.00) K/uL Eos # (Auto) (0.00-0.50) K/uL Baso # (Auto) (0.00-0.20) K/uL ESR (0-20) mm/hr PT (9.8-11.7) SEC INR Sodium (136-145) mmol/L Potassium (3.5-5.1) mmol/L Chloride (98-107) mmol/L Carbon Dioxide (21.0-32.0) mmol/L BUN (7-18) mg/dL Creatinine (0.51-1.17) mg/dL Est Cr Clr Drug Dosing mL/min Estimated GFR (MDRD) mL/min Glucose (74-106) mg/dL POC Glucose 99 102 116 H (65-110) mg/dl Calcium (8.5-10.1) mg/dL Total Bilirubin (0.2-1.0) mg/dL AST (15-37) U/L ALT (12-78) U/L Alkaline Phosphatase (46-116) IU/L C-Reactive Protein (<=0.9) mg/dL Total Protein (6.4-8.2) g/dL Albumin (3.4-5.0) g/dL Digoxin (0.90-2.00) ng/mL 12/15/16 12/15/16 12/15/16 Range/Units 06:43 06:45 17:13 WBC (4.0-10.2) K/uL RBC (4.33-5.41) M/uL Hgb (13.1-16.8) g/dL Hct (39.0-49.0) % MCV (84.0-98.0) fL MCH (28.2-33.3) pg MCHC (31.7-36.0) g/dL RDW (11.2-14.1) % Plt Count (150-350) K/uL Neut % (Auto) (45.0-80.0) % Lymph % (Auto) (10.0-50.0) % Butler % (Auto) (2.0-14.0) % Eos % (Auto) (0.0-5.0) % Baso % (Auto) (0.0-2.0) % Neut # (Auto) (1.40-7.00) K/uL Lymph # (Auto) (0.50-3.50) K/uL Butler # (Auto) (0.00-1.00) K/uL Eos # (Auto) (0.00-0.50) K/uL Baso # (Auto) (0.00-0.20) K/uL ESR (0-20) mm/hr PT (9.8-11.7) SEC INR 2.7 Sodium (136-145) mmol/L Potassium (3.5-5.1) mmol/L Chloride (98-107) mmol/L Carbon Dioxide (21.0-32.0) mmol/L BUN (7-18) mg/dL Creatinine (0.51-1.17) mg/dL Est Cr Clr Drug Dosing mL/min Estimated GFR (MDRD) mL/min Glucose (74-106) mg/dL POC Glucose 108 111 H (65-110) mg/dl Calcium (8.5-10.1) mg/dL Total Bilirubin (0.2-1.0) mg/dL AST (15-37) U/L ALT (12-78) U/L Alkaline Phosphatase (46-116) IU/L C-Reactive Protein (<=0.9) mg/dL Total Protein (6.4-8.2) g/dL Albumin (3.4-5.0) g/dL Digoxin (0.90-2.00) ng/mL 12/16/16 12/16/16 12/17/16 Range/Units 08:05 16:39 07:54 WBC (4.0-10.2) K/uL RBC (4.33-5.41) M/uL Hgb (13.1-16.8) g/dL Hct (39.0-49.0) % MCV (84.0-98.0) fL MCH (28.2-33.3) pg MCHC (31.7-36.0) g/dL RDW (11.2-14.1) % Plt Count (150-350) K/uL Neut % (Auto) (45.0-80.0) % Lymph % (Auto) (10.0-50.0) % Butler % (Auto) (2.0-14.0) % Eos % (Auto) (0.0-5.0) % Baso % (Auto) (0.0-2.0) % Neut # (Auto) (1.40-7.00) K/uL Lymph # (Auto) (0.50-3.50) K/uL Butler # (Auto) (0.00-1.00) K/uL Eos # (Auto) (0.00-0.50) K/uL Baso # (Auto) (0.00-0.20) K/uL ESR (0-20) mm/hr PT (9.8-11.7) SEC INR Sodium (136-145) mmol/L Potassium (3.5-5.1) mmol/L Chloride (98-107) mmol/L Carbon Dioxide (21.0-32.0) mmol/L BUN (7-18) mg/dL Creatinine (0.51-1.17) mg/dL Est Cr Clr Drug Dosing mL/min Estimated GFR (MDRD) mL/min Glucose (74-106) mg/dL POC Glucose 109 74 112 H (65-110) mg/dl Calcium (8.5-10.1) mg/dL Total Bilirubin (0.2-1.0) mg/dL AST (15-37) U/L ALT (12-78) U/L Alkaline Phosphatase (46-116) IU/L C-Reactive Protein (<=0.9) mg/dL Total Protein (6.4-8.2) g/dL Albumin (3.4-5.0) g/dL Digoxin (0.90-2.00) ng/mL 12/17/16 12/18/16 12/18/16 Range/Units 16:43 07:21 16:59 WBC (4.0-10.2) K/uL RBC (4.33-5.41) M/uL Hgb (13.1-16.8) g/dL Hct (39.0-49.0) % MCV (84.0-98.0) fL MCH (28.2-33.3) pg MCHC (31.7-36.0) g/dL RDW (11.2-14.1) % Plt Count (150-350) K/uL Neut % (Auto) (45.0-80.0) % Lymph % (Auto) (10.0-50.0) % Butler % (Auto) (2.0-14.0) % Eos % (Auto) (0.0-5.0) % Baso % (Auto) (0.0-2.0) % Neut # (Auto) (1.40-7.00) K/uL Lymph # (Auto) (0.50-3.50) K/uL Butler # (Auto) (0.00-1.00) K/uL Eos # (Auto) (0.00-0.50) K/uL Baso # (Auto) (0.00-0.20) K/uL ESR (0-20) mm/hr PT (9.8-11.7) SEC INR Sodium (136-145) mmol/L Potassium (3.5-5.1) mmol/L Chloride (98-107) mmol/L Carbon Dioxide (21.0-32.0) mmol/L BUN (7-18) mg/dL Creatinine (0.51-1.17) mg/dL Est Cr Clr Drug Dosing mL/min Estimated GFR (MDRD) mL/min Glucose (74-106) mg/dL POC Glucose 162 H 101 90 (65-110) mg/dl Calcium (8.5-10.1) mg/dL Total Bilirubin (0.2-1.0) mg/dL AST (15-37) U/L ALT (12-78) U/L Alkaline Phosphatase (46-116) IU/L C-Reactive Protein (<=0.9) mg/dL Total Protein (6.4-8.2) g/dL Albumin (3.4-5.0) g/dL Digoxin (0.90-2.00) ng/mL 12/19/16 12/19/16 12/19/16 Range/Units 07:50 07:50 07:50 WBC 3.6 L (4.0-10.2) K/uL RBC 3.27 L (4.33-5.41) M/uL Hgb 10.0 L (13.1-16.8) g/dL Hct 32.0 L (39.0-49.0) % MCV 97.9 (84.0-98.0) fL MCH 30.6 (28.2-33.3) pg MCHC 31.3 L (31.7-36.0) g/dL RDW 12.7 (11.2-14.1) % Plt Count 172 D (150-350) K/uL Neut % (Auto) 73.9 (45.0-80.0) % Lymph % (Auto) 13.3 (10.0-50.0) % Butler % (Auto) 6.9 (2.0-14.0) % Eos % (Auto) 5.3 H (0.0-5.0) % Baso % (Auto) 0.6 (0.0-2.0) % Neut # (Auto) 2.66 (1.40-7.00) K/uL Lymph # (Auto) 0.48 L (0.50-3.50) K/uL Butler # (Auto) 0.25 (0.00-1.00) K/uL Eos # (Auto) 0.19 (0.00-0.50) K/uL Baso # (Auto) 0.02 (0.00-0.20) K/uL ESR 60 H (0-20) mm/hr PT 23.9 H D (9.8-11.7) SEC INR 2.2 Sodium 139 (136-145) mmol/L Potassium 4.9 (3.5-5.1) mmol/L Chloride 103 (98-107) mmol/L Carbon Dioxide 28.9 (21.0-32.0) mmol/L BUN 23 H (7-18) mg/dL Creatinine 1.28 H (0.51-1.17) mg/dL Est Cr Clr Drug Dosing 52.41 mL/min Estimated GFR (MDRD) 55 mL/min Glucose 102 (74-106) mg/dL POC Glucose (65-110) mg/dl Calcium 8.6 (8.5-10.1) mg/dL Total Bilirubin 0.2 (0.2-1.0) mg/dL AST 35 (15-37) U/L ALT 14 (12-78) U/L Alkaline Phosphatase 101 (46-116) IU/L C-Reactive Protein 3.9 H (<=0.9) mg/dL Total Protein 6.1 L (6.4-8.2) g/dL Albumin 2.5 L (3.4-5.0) g/dL Digoxin (0.90-2.00) ng/mL 12/19/16 12/20/16 12/20/16 Range/Units 07:58 07:58 17:17 WBC (4.0-10.2) K/uL RBC (4.33-5.41) M/uL Hgb (13.1-16.8) g/dL Hct (39.0-49.0) % MCV (84.0-98.0) fL MCH (28.2-33.3) pg MCHC (31.7-36.0) g/dL RDW (11.2-14.1) % Plt Count (150-350) K/uL Neut % (Auto) (45.0-80.0) % Lymph % (Auto) (10.0-50.0) % Butler % (Auto) (2.0-14.0) % Eos % (Auto) (0.0-5.0) % Baso % (Auto) (0.0-2.0) % Neut # (Auto) (1.40-7.00) K/uL Lymph # (Auto) (0.50-3.50) K/uL Butler # (Auto) (0.00-1.00) K/uL Eos # (Auto) (0.00-0.50) K/uL Baso # (Auto) (0.00-0.20) K/uL ESR (0-20) mm/hr PT (9.8-11.7) SEC INR Sodium (136-145) mmol/L Potassium (3.5-5.1) mmol/L Chloride (98-107) mmol/L Carbon Dioxide (21.0-32.0) mmol/L BUN (7-18) mg/dL Creatinine (0.51-1.17) mg/dL Est Cr Clr Drug Dosing mL/min Estimated GFR (MDRD) mL/min Glucose (74-106) mg/dL POC Glucose 86 101 97 (65-110) mg/dl Calcium (8.5-10.1) mg/dL Total Bilirubin (0.2-1.0) mg/dL AST (15-37) U/L ALT (12-78) U/L Alkaline Phosphatase (46-116) IU/L C-Reactive Protein (<=0.9) mg/dL Total Protein (6.4-8.2) g/dL Albumin (3.4-5.0) g/dL Digoxin (0.90-2.00) ng/mL 12/21/16 12/21/16 12/22/16 Range/Units 07:47 17:03 06:57 WBC 4.3 (4.0-10.2) K/uL RBC 3.26 L (4.33-5.41) M/uL Hgb 9.7 L (13.1-16.8) g/dL Hct 32.1 L (39.0-49.0) % MCV 98.5 H (84.0-98.0) fL MCH 29.8 (28.2-33.3) pg MCHC 30.2 L (31.7-36.0) g/dL RDW 12.8 (11.2-14.1) % Plt Count 165 (150-350) K/uL Neut % (Auto) 62.4 (45.0-80.0) % Lymph % (Auto) 20.3 (10.0-50.0) % Butler % (Auto) 12.4 (2.0-14.0) % Eos % (Auto) 4.4 (0.0-5.0) % Baso % (Auto) 0.5 (0.0-2.0) % Neut # (Auto) 2.67 (1.40-7.00) K/uL Lymph # (Auto) 0.87 (0.50-3.50) K/uL Butler # (Auto) 0.53 (0.00-1.00) K/uL Eos # (Auto) 0.19 (0.00-0.50) K/uL Baso # (Auto) 0.02 (0.00-0.20) K/uL ESR (0-20) mm/hr PT (9.8-11.7) SEC INR Sodium (136-145) mmol/L Potassium (3.5-5.1) mmol/L Chloride (98-107) mmol/L Carbon Dioxide (21.0-32.0) mmol/L BUN (7-18) mg/dL Creatinine (0.51-1.17) mg/dL Est Cr Clr Drug Dosing mL/min Estimated GFR (MDRD) mL/min Glucose (74-106) mg/dL POC Glucose 104 108 (65-110) mg/dl Calcium (8.5-10.1) mg/dL Total Bilirubin (0.2-1.0) mg/dL AST (15-37) U/L ALT (12-78) U/L Alkaline Phosphatase (46-116) IU/L C-Reactive Protein (<=0.9) mg/dL Total Protein (6.4-8.2) g/dL Albumin (3.4-5.0) g/dL Digoxin (0.90-2.00) ng/mL 12/22/16 12/22/16 12/23/16 Range/Units 07:13 17:01 07:45 WBC (4.0-10.2) K/uL RBC (4.33-5.41) M/uL Hgb (13.1-16.8) g/dL Hct (39.0-49.0) % MCV (84.0-98.0) fL MCH (28.2-33.3) pg MCHC (31.7-36.0) g/dL RDW (11.2-14.1) % Plt Count (150-350) K/uL Neut % (Auto) (45.0-80.0) % Lymph % (Auto) (10.0-50.0) % Butler % (Auto) (2.0-14.0) % Eos % (Auto) (0.0-5.0) % Baso % (Auto) (0.0-2.0) % Neut # (Auto) (1.40-7.00) K/uL Lymph # (Auto) (0.50-3.50) K/uL Butler # (Auto) (0.00-1.00) K/uL Eos # (Auto) (0.00-0.50) K/uL Baso # (Auto) (0.00-0.20) K/uL ESR (0-20) mm/hr PT (9.8-11.7) SEC INR Sodium (136-145) mmol/L Potassium (3.5-5.1) mmol/L Chloride (98-107) mmol/L Carbon Dioxide (21.0-32.0) mmol/L BUN (7-18) mg/dL Creatinine (0.51-1.17) mg/dL Est Cr Clr Drug Dosing mL/min Estimated GFR (MDRD) mL/min Glucose (74-106) mg/dL POC Glucose 111 H 98 111 H (65-110) mg/dl Calcium (8.5-10.1) mg/dL Total Bilirubin (0.2-1.0) mg/dL AST (15-37) U/L ALT (12-78) U/L Alkaline Phosphatase (46-116) IU/L C-Reactive Protein (<=0.9) mg/dL Total Protein (6.4-8.2) g/dL Albumin (3.4-5.0) g/dL Digoxin (0.90-2.00) ng/mL 12/23/16 12/24/16 12/24/16 Range/Units 17:39 07:55 18:01 WBC (4.0-10.2) K/uL RBC (4.33-5.41) M/uL Hgb (13.1-16.8) g/dL Hct (39.0-49.0) % MCV (84.0-98.0) fL MCH (28.2-33.3) pg MCHC (31.7-36.0) g/dL RDW (11.2-14.1) % Plt Count (150-350) K/uL Neut % (Auto) (45.0-80.0) % Lymph % (Auto) (10.0-50.0) % Butler % (Auto) (2.0-14.0) % Eos % (Auto) (0.0-5.0) % Baso % (Auto) (0.0-2.0) % Neut # (Auto) (1.40-7.00) K/uL Lymph # (Auto) (0.50-3.50) K/uL Butler # (Auto) (0.00-1.00) K/uL Eos # (Auto) (0.00-0.50) K/uL Baso # (Auto) (0.00-0.20) K/uL ESR (0-20) mm/hr PT (9.8-11.7) SEC INR Sodium (136-145) mmol/L Potassium (3.5-5.1) mmol/L Chloride (98-107) mmol/L Carbon Dioxide (21.0-32.0) mmol/L BUN (7-18) mg/dL Creatinine (0.51-1.17) mg/dL Est Cr Clr Drug Dosing mL/min Estimated GFR (MDRD) mL/min Glucose (74-106) mg/dL POC Glucose 95 111 H 94 (65-110) mg/dl Calcium (8.5-10.1) mg/dL Total Bilirubin (0.2-1.0) mg/dL AST (15-37) U/L ALT (12-78) U/L Alkaline Phosphatase (46-116) IU/L C-Reactive Protein (<=0.9) mg/dL Total Protein (6.4-8.2) g/dL Albumin (3.4-5.0) g/dL Digoxin (0.90-2.00) ng/mL 12/25/16 12/25/16 12/26/16 Range/Units 07:41 17:12 07:00 WBC 3.6 L (4.0-10.2) K/uL RBC 3.49 L (4.33-5.41) M/uL Hgb 10.6 L (13.1-16.8) g/dL Hct 33.9 L (39.0-49.0) % MCV 97.1 (84.0-98.0) fL MCH 30.4 (28.2-33.3) pg MCHC 31.3 L (31.7-36.0) g/dL RDW 12.7 (11.2-14.1) % Plt Count 219 (150-350) K/uL Neut % (Auto) 65.3 (45.0-80.0) % Lymph % (Auto) 22.0 (10.0-50.0) % Butler % (Auto) 8.8 (2.0-14.0) % Eos % (Auto) 3.6 (0.0-5.0) % Baso % (Auto) 0.3 (0.0-2.0) % Neut # (Auto) 2.37 (1.40-7.00) K/uL Lymph # (Auto) 0.80 (0.50-3.50) K/uL Butler # (Auto) 0.32 (0.00-1.00) K/uL Eos # (Auto) 0.13 (0.00-0.50) K/uL Baso # (Auto) 0.01 (0.00-0.20) K/uL ESR 63 H (0-20) mm/hr PT (9.8-11.7) SEC INR Sodium (136-145) mmol/L Potassium (3.5-5.1) mmol/L Chloride (98-107) mmol/L Carbon Dioxide (21.0-32.0) mmol/L BUN (7-18) mg/dL Creatinine (0.51-1.17) mg/dL Est Cr Clr Drug Dosing mL/min Estimated GFR (MDRD) mL/min Glucose (74-106) mg/dL POC Glucose 101 134 H (65-110) mg/dl Calcium (8.5-10.1) mg/dL Total Bilirubin (0.2-1.0) mg/dL AST (15-37) U/L ALT (12-78) U/L Alkaline Phosphatase (46-116) IU/L C-Reactive Protein (<=0.9) mg/dL Total Protein (6.4-8.2) g/dL Albumin (3.4-5.0) g/dL Digoxin (0.90-2.00) ng/mL 12/26/16 12/26/16 12/26/16 Range/Units 07:00 07:00 07:13 WBC (4.0-10.2) K/uL RBC (4.33-5.41) M/uL Hgb (13.1-16.8) g/dL Hct (39.0-49.0) % MCV (84.0-98.0) fL MCH (28.2-33.3) pg MCHC (31.7-36.0) g/dL RDW (11.2-14.1) % Plt Count (150-350) K/uL Neut % (Auto) (45.0-80.0) % Lymph % (Auto) (10.0-50.0) % Butler % (Auto) (2.0-14.0) % Eos % (Auto) (0.0-5.0) % Baso % (Auto) (0.0-2.0) % Neut # (Auto) (1.40-7.00) K/uL Lymph # (Auto) (0.50-3.50) K/uL Butler # (Auto) (0.00-1.00) K/uL Eos # (Auto) (0.00-0.50) K/uL Baso # (Auto) (0.00-0.20) K/uL ESR (0-20) mm/hr PT 21.9 H (9.8-11.7) SEC INR 2.0 Sodium 140 (136-145) mmol/L Potassium 4.7 (3.5-5.1) mmol/L Chloride 104 (98-107) mmol/L Carbon Dioxide 29.9 (21.0-32.0) mmol/L BUN 23 H (7-18) mg/dL Creatinine 1.33 H (0.51-1.17) mg/dL Est Cr Clr Drug Dosing 50.44 mL/min Estimated GFR (MDRD) 53 mL/min Glucose 100 (74-106) mg/dL POC Glucose 102 (65-110) mg/dl Calcium 8.7 (8.5-10.1) mg/dL Total Bilirubin 0.2 (0.2-1.0) mg/dL AST 38 H (15-37) U/L ALT 17 (12-78) U/L Alkaline Phosphatase 115 (46-116) IU/L C-Reactive Protein 4.2 H (<=0.9) mg/dL Total Protein 6.4 (6.4-8.2) g/dL Albumin 2.7 L (3.4-5.0) g/dL Digoxin (0.90-2.00) ng/mL [facility] Results - Last 24 hrs: None Med Orders - Current: Current Medications Acetaminophen (Tylenol) 650 mg PO Q4HR PRN PRN Reason: Pain (mild 1-3) Last Admin: 12/13/16 22:20 Dose: 650 mg Acetaminophen (Tylenol Extra Strength) 500 mg PO BID [facility] Last Admin: 12/26/16 08:03 Dose: 500 mg Allopurinol (Zyloprim) 150 mg PO DAILY [facility] Last Admin: 12/26/16 08:04 Dose: 150 mg Cefazolin Sodium (Ancef) 2 gm IV Q8HR [facility] Last Admin: 12/26/16 08:58 Dose: 2 gm Cholecalciferol (Vitamin D3) 2,000 units PO DAILY [facility] Last Admin: 12/26/16 08:03 Dose: 2,000 units Cholestyramine Resin (Cholestyramine Packet) 4 gm PO DAILY [facility] Last Admin: 12/26/16 08:00 Dose: 4 gm Digoxin (Lanoxin) 250 mcg PO QAM [facility] Last Admin: 12/26/16 08:00 Dose: 250 mcg Diltiazem HCl (Cardizem Cd) 180 mg PO BID [facility] Last Admin: 12/26/16 07:59 Dose: 180 mg Ferrous Sulfate (Ferrous Sulfate) 325 mg PO QAM [facility] Last Admin: 12/26/16 08:00 Dose: 325 mg Heparin Sodium (Porcine) (Heparin Lock Flush 100 Units/Ml Syringe) 300 units FLUSH ASDIRECTED PRN PRN Reason: Keep Vein Open Last Admin: 12/26/16 07:04 Dose: 300 units Heparin Sodium (Porcine) (Heparin Lock Flush 100 Units/Ml Syringe) 300 units FLUSH Q8HR [facility] Last Admin: 12/26/16 08:59 Dose: 300 units Insulin Aspart (Novolog Mix 70-30) 0 unit SUBCUT BIDAC [facility] PRN Reason: Protocol Last Admin: 12/26/16 07:59 Dose: Not Given Insulin Detemir (Levemir) 8 unit SUBCUT [facility] Last Admin: 12/26/16 08:01 Dose: 8 units Melatonin (Melatonin) 3 mg PO BEDTIME PRN PRN Reason: Insomnia Metoprolol Tartrate (Lopressor) 100 mg PO BID [facility] Last Admin: 12/26/16 08:02 Dose: 100 mg Rifampin 300mg (Capsule) 2 each PO DAILY [facility] Last Admin: 12/26/16 08:02 Dose: 2 each Polyethylene Glycol (Miralax) 17 gm PO QAM PRN PRN Reason: Constipation Rosuvastatin Calcium (Crestor) 5 mg PO BEDTIME [facility] Last Admin: 12/25/16 20:18 Dose: 5 mg Senna/Docusate Sodium (Senna Plus) 1 tab PO BID PRN PRN Reason: Constipation Sodium Chloride (Saline Flush) 10 ml FLUSH ASDIRECTED PRN PRN Reason: Keep Vein Open Last Admin: 12/26/16 07:04 Dose: 10 ml Sodium Chloride (Saline Flush) 10 ml FLUSH Q8HR [facility] Last Admin: 12/26/16 08:59 Dose: 10 ml Tramadol HCl (Ultram) 50 mg PO QID PRN PRN Reason: Pain (moderate 4-6) Last Admin: 12/25/16 21:19 Dose: 50 mg Warfarin Sodium (Coumadin) 8 mg PO DAILY@1800 [facility] Last Admin: 12/25/16 18:00 Dose: 8 mg Discontinued Medications Aspirin (Ecotrin) 325 mg PO BID [facility] Stop: 12/25/16 15:46 Last Admin: 12/25/16 07:49 Dose: 325 mg Heparin Sodium (Porcine) (Heparin Lock Flush 100 Units/Ml Syringe) 300 units IVPUSH ASDIRECTED PRN PRN Reason: Keep Vein Open Last Admin: 12/08/16 00:22 Dose: 300 units Heparin Sodium (Porcine) (Heparin Lock Flush 100 Units/Ml Syringe) 300 units IVPUSH Q12HR [facility] Last Admin: 12/08/16 08:49 Dose: 300 units Heparin Sodium (Porcine) (Heparin Lock Flush 100 Units/Ml Syringe) 300 units IVPUSH Q8HR [facility] Last Admin: 12/13/16 08:24 Dose: 300 units Insulin Aspart (Novolog) 0 unit SUBCUT ACBED [facility] PRN Reason: Protocol Last Admin: 12/03/16 11:35 Dose: 2 units Non-Formulary Medication (Warfarin) 4 mg PO DAILY@1800 [facility] Polyethylene Glycol (Miralax) 17 gm PO QAM [facility] Last Admin: 12/02/16 10:45 Dose: Not Given Polyethylene Glycol (Miralax) 17 gm PO QAM [facility] Polyethylene Glycol (Miralax) 17 gm PO QAM [facility] Last Admin: 12/22/16 07:58 Dose: Not Given Sodium Chloride (Saline Flush) 10 ml FLUSH Q12HR [facility] Last Admin: 12/09/16 08:45 Dose: 10 ml Warfarin Sodium (Coumadin) 4 mg PO DAILY@1800 [facility] Last Admin: 12/09/16 17:48 Dose: 4 mg Warfarin Sodium (Coumadin) 4 mg PO ONETIME ONE Stop: 12/02/16 18:01 Last Admin: 12/02/16 18:02 Dose: 4 mg Warfarin Sodium (Coumadin) 4 mg PO ONETIME ONE Stop: 12/03/16 13:12 Last Admin: 12/03/16 13:42 Dose: 4 mg Warfarin Sodium (Coumadin) 2 mg PO ONETIME ONE Stop: 12/03/16 13:22 Last Admin: 12/03/16 13:43 Dose: 2 mg Warfarin Sodium (Coumadin) 1 mg PO DAILY@1800 [facility] Stop: 12/05/16 23:00 Last Admin: 12/05/16 17:52 Dose: 1 mg Warfarin Sodium (Coumadin) 5 mg PO ONETIME ONE Stop: 12/10/16 12:25 Last Admin: 12/10/16 12:41 Dose: 5 mg Warfarin Sodium (Coumadin) 5 mg PO DAILY@1800 [facility] Warfarin Sodium (Coumadin) 5 mg PO DAILY@1800 [facility] Last Admin: 12/10/16 17:35 Dose: 5 mg Warfarin Sodium (Coumadin) 5 mg PO ONETIME ONE Stop: 12/11/16 16:57 Last Admin: 12/11/16 17:13 Dose: 5 mg Warfarin Sodium 5 mg/ Warfarin (Sodium 2 mg) 7 mg PO DAILY@1800 [facility] Last Admin: 12/11/16 18:31 Dose: Not Given Warfarin Sodium (Coumadin) 5 mg PO ONETIME ONE Stop: 12/11/16 18:36 Last Admin: 12/11/16 21:20 Dose: 5 mg Warfarin Sodium 5 mg/ Warfarin (Sodium 2 mg) 7 mg PO DAILY@1800 [facility] Warfarin Sodium (Coumadin) 10 mg PO DAILY@1800 [facility] Warfarin Sodium (Coumadin) 10 mg PO ONETIME ONE Stop: 12/12/16 09:11 Last Admin: 12/12/16 09:20 Dose: 10 mg - Exam Quality Assessment: Reports: central line/PICC, DVT prophylaxis (On Coumadin). Denies: supplemental oxygen, urine catheter, skin breakdown, restraints General: Reports: alert, oriented, cooperative, no acute distress HEENT: Reports: Pupils equal, Pupils reactive, EOMI, Mucous membr. moist/pink Neck: Reports: supple, trachea midline, no JVD, no thyromegaly. Denies: lymphadenopathy Lungs: Reports: Clear to auscultation, Normal respiratory effort. Denies: Rub Cardiovascular: Reports: No Murmurs, Irregular Rhythm. Denies: Gallops, Rubs Abdomen: Reports: bowel sounds present, soft, no tenderness, no distension. Denies: guarding, CVA tenderness (Male) Exam: Deferred Rectal (Males) Exam: Deferred Back Exam: Reports: Normal Inspection, Full Range of Motion. Denies: CVA Tenderness (L), CVA Tenderness (R), Muscle Spasm Extremities: Reports: no edema, normal pulses, no tenderness/swelling, other (2/ 4 peripheral pulses, Minimal discomfort with range of motion of the left knee secondary to recent surgery with mild persistent left knee effusion however well healed operative site and no local warming or signs of infection, no lymphangitis). Denies: no calf tenderness Wound/Incisions: Reports: other (As above) Neurological: Reports: no new focal deficit Psy/Mental Status: Reports: alert, normal affect, normal mood *Q Meaningful Use (DIS) - VTE *Q VTE Criteria *Q: - Stroke *Q Stroke Criteria *Q: - AMI *Q AMI Criteria *Q:
--- NOTE | 2016-12-26 13:52 | PCM.SN ---
- Free Text/Narrative Note: Note that it appears the patient has been on nightly Ultram on a long-term basis with only low dose Tylenol therapy at this time. Secondary to dependency issues patient will not be discharged with Ultram and will contact his regular provider SUZANNA for medication adjustments. Dependency treatment depending on his clinical course. Also note correction of instructions to home health with PICC line dressing changes to be conducted on a weekly rather than daily basis.
== END 2016-12-26 12:50 | disposition home health service (06) | DRG 862 ==
LOC: LL.SWG 14:52
PROVIDERS: ADMIT Family Medicine; ATTEND Family Medicine
DX: T81.4XXA Infection following a procedure, initial encounter (principal); A41.01 Sepsis due to Methicillin susceptible Staphylococcus aureus; Z47.1 Aftercare following joint replacement surgery; Z96.652 Presence of left artificial knee joint; Z98.890 Other specified postprocedural states; E11.40 Type 2 diabetes mellitus with diabetic neuropathy, unspecified; Z79.4 Long term (current) use of insulin; I48.2 Chronic atrial fibrillation; R79.1 Abnormal coagulation profile; Z85.51 Personal history of malignant neoplasm of bladder; M54.9 Dorsalgia, unspecified; G89.29 Other chronic pain; M19.90 Unspecified osteoarthritis, unspecified site; M1A.9XX0 Chronic gout, unspecified, without tophus (tophi); E78.5 Hyperlipidemia, unspecified; H54.7 Unspecified visual loss; D64.9 Anemia, unspecified; M25.562 Pain in left knee; R79.89 Other specified abnormal findings of blood chemistry; Z79.82 Long term (current) use of aspirin; Z79.01 Long term (current) use of anticoagulants; Z88.8 Allergy status to other drugs, medicaments and biological substances; I12.9 Hypertensive chronic kidney disease with stage 1 through stage 4 chronic kidney disease, or unspecified chronic kidney disease; E11.22 Type 2 diabetes mellitus with diabetic chronic kidney disease; N18.9 Chronic kidney disease, unspecified
CPT/HCPCS: 36415; 36416; 80053; 80162; 82962; 85025; 85610; 85651; 86140; 97110-GP; 97116-GP; 97140-GP; 97161-GP; 97530-GP; A9270-GY; J0690; J1642; J1815-GY; J7050

== ENCOUNTER 2017-01-22 02:11 | Emergency (ER) | payer MEDICARE, OTHER ==
[2017-01-22] MEDS ORDERED: Sodium Chloride 0.9% 10 ML Syringe FLUSH PRN (02:17)
--- NOTE | 2017-01-22 03:29 | EDM.PDOC ---
ED HPI GENERAL MEDICAL PROBLEM - General Chief Complaint: Cardiovascular Problem Stated Complaint: irregular HR, HTN Time Seen by Provider: 01/22/17 03:08 Source of Information: Reports: Patient History Limitations: Reports: No Limitations - History of Present Illness INITIAL COMMENTS - FREE TEXT/NARRATIVE: Patient was at home and noted feeling an irregular heart rhythm. BP elevated 175/115. No other complaints. Denied chest pain, SOB, nausea, diaphoresis. Recent inpatient admission at [facility] for bradycardia. At that time medications were adjusted. Taken off Digoxin. Patient called [facility] and was told to come here to be checked. By the time patient arrived in the ER the complaint had resolved. Currently symptom-free. - Related Data Allergies Allergy/AdvReac Type Severity Reaction Status Date / Time hydromorphone [From Dilaudid] Allergy Other Verified 01/22/17 02:24 hydroxyzine [From Vistaril] Allergy UNKNOWN Verified 01/22/17 02:24 meperidine [From Demerol] Allergy UNKNOWN Verified 01/22/17 02:24 Home Meds: Home Meds RX: Allopurinol [Zyloprim] 0.5 tab PO DAILY 05/04/16 [History] RX: Ferrous Sulfate 1 tab PO QAM 05/04/16 [History] RX: Insulin Detemir [Levemir Flextouch] 8 units SUBCUT QAM 05/04/16 [History] RX: Penicillin V Potassium 4 tab PO ASDIRECTED 05/04/16 [History] RX: Rosuvastatin [Crestor] 0.5 tab PO BEDTIME 05/04/16 [History] RX: Cholecalciferol (Vitamin D3) [Vitamin D3] 2,000 units PO DAILY 12/01/16 [ History] RX: Acetaminophen [Tylenol Extra Strength] 500 mg PO BID tablet 12/26/16 [Rx] RX: Cholestyramine/Sucrose [Cholestyramine] 4 gm PO DAILY packet 12/26/16 [Rx] RX: Cephalexin 500 mg PO TID 01/22/17 [History] RX: Metoprolol Succinate [Toprol XL] 100 mg PO DAILY 01/22/17 [History] RX: Warfarin Sodium 10 mg PO MOWEFR@01/22/17 [History] RX: Warfarin [Coumadin] 8 mg PO SUTUTHSA@01/22/17 [History] Past Medical History HEENT History: Reports: Impaired Vision, Other (See Below) Other HEENT History: No history of diabetic retinopathy, the patient wears trifocals Cardiovascular History: Reports: Afib, Arrhythmia, Heart Murmur, High Cholesterol, Hypertension, Pulmonary Hypertension, PVD Other Cardiovascular History: Borderline aortic stenosis and mitral valve insufficiency with no significant valvular disease by echocardiogram, mild biatrial enlargement with borderline cardiomegaly but no significant cardiac dysfunction, recurrent atrial fibrillation with rapid ventricular response initially diagnosed on 02/13/98 and current long-term Coumadin therapy, idiopathic myositis in about 2004, dyslipidemia, mild carotid occlusive disease , previous history of first degree AV block, PACs, and sinus arrhythmia on Respiratory History: Reports: Intubation, Previous Gastrointestinal History: Reports: Colon Polyp, GERD, Hiatal Hernia, PUD Other Gastrointestinal History: umbilical hernia, history of diminutive colonic polyp of the proximal ascending colon on 01/31/13 with subsequent small tubular adenomas x2 one in the distal ascending colon and the other at the hepatic flexure on 05/05/16, history of colitis, polyposis of the gallbladder diagnosed on 05/25/99, fatty liver, benign hepatic cysts Genitourinary History: Reports: Acute Renal Failure, BPH, Chronic Renal Insuffiency, Diabetic Nephropathy, UTI, Recurrent Other Genitourinary History: Chronic prostatitis with hematuria, transitional cell cancer as below, diabetic nephropathy with proteinuria bilateral benign renal cysts, rectal dysfunction Musculoskeletal History: Reports: Arthritis, Back Pain, Chronic, Gout, Neck Pain , Chronic, Osteoarthritis Other Musculoskeletal History: Spinal stenosis of lumbar region (L3-4), sternoclavicular joint subluxation (left) on 07/19/01, left ankle fracture at age 21, idiopathic myositis Neurological History: Reports: Neuropathy, Diabetic Psychiatric History: Reports: None Endocrine/Metabolic History: Reports: Diabetes, Type II, IDDM Hematologic History: Reports: Anemia, Iron Deficiency, Other (See Below) Other Hematologic History: Hyperuricemia Immunologic History: Reports: None Oncologic (Cancer) History: Reports: Basal Cell Carcinoma, Bladder, Other (See Below) Other Oncologic History: Basal cell carcinoma of helix- right, transitional cell cancer diagnosed on 09/15/08 - Infectious Disease History Infectious Disease History: Reports: Chicken Pox, Measles Other Infectious Disease History: Recurrent postoperative MSSA including sepsis as above - Past Surgical History Head Surgeries/Procedures: Reports: None HEENT Surgical History: Reports: Adenoidectomy, Oral Surgery, Tonsillectomy GI Surgical History: Reports: Appendectomy, Colonoscopy, Polypectomy Neurological Surgical History: Reports: Discectomy, Lumbar Spine Musculoskeletal Surgical History: Reports: Arthroscopic Procedure, Joint Replacement, Knee Replacement, Shoulder Surgery Dermatological Surgical History: Reports: None - Past Imaging History Past Imaging History: Reports: Cardiac Echo, Mammogram, Other (See Below) Social & Family History - Family History Cardiac: Reports: Arrhythmia, Bypass, CAD, High Cholesterol, Hypertension, MA, Other (See Below) Other Cardiac Family History: Father from an MA at age 69, mother with unknown type of cardiac arrhythmia, sister with CABG in her 60s, hypertension in sister, mother with hyperlipidemia GI: Reports: GERD, Other (See Below) Other GI Family History: Brother and sister with GERD : Reports: Renal Disease/Insufficiency, Other (See Below) Other Family History: Sister and nephew with benign hematuria Endocrine/Metabolic: Reports: Diabetes, type II, IDDM, Other (See Below) Other Endocrine/Metabolic Family History: Brother and sister with IDDM, parents with AODM Oncologic: Reports: Bone, Other (See Below) Other Oncologic Family History: Maternal aunt with unknown type of fatal cancer possibly bone cancer in her 50s, maternal cousin with fatal stomach cancer in his 50s, brother with colon cancer at age 58 - Tobacco Use Smoking Status *Q: Never Smoker Second Hand Smoke Exposure: No - Caffeine Use Caffeine Use: Reports: Soda (One soda per day, one glass of ice tea per day), Tea. Denies: Coffee, Energy Drinks - Alcohol Use Days Per Week of Alcohol Use: 2 (No previous DWIs, problems with alcohol abuse, etc.) Number of Drinks Per Day: 2 (Usually beer) Total Drinks Per Week: 4 - Recreational Drug Use Recreational Drug Use: No Drug Use in Last 12 Months: No - Living Situation & Occupation Living situation: Reports: , with Family Occupation: Employed ED ROS GENERAL - Review of Systems Review Of Systems: See Below Constitutional: Reports: No Symptoms HEENT: Reports: No Symptoms Respiratory: Reports: No Symptoms. Denies: Shortness of Breath Cardiovascular: Reports: Blood Pressure Problem, Palpitations. Denies: Chest Pain, Dyspnea on Exertion, Lightheadedness, Orthopnea, Syncope GI/Abdominal: Reports: No Symptoms : Reports: No Symptoms Musculoskeletal: Reports: No Symptoms, Other (no acute changes) Skin: Reports: No Symptoms Neurological: Reports: No Symptoms Psychiatric: Reports: No Symptoms Hematologic/Lymphatic: Reports: No Symptoms ED EXAM, GENERAL - Physical Exam Exam: See Below Exam Limited By: No Limitations General Appearance: Alert, WD/WN, No Apparent Distress Eye Exam: Bilateral Eye: EOMI, Normal Inspection, PERRL Ears: Normal External Exam Nose: Normal Inspection Throat/Mouth: Normal Inspection, Normal Voice, No Airway Compromise Head: Atraumatic, Normocephalic Neck: Normal Inspection, Supple, Non-Tender, Full Range of Motion. No: Carotid Bruit, Lymphadenopathy (L), Lymphadenopathy (R) Respiratory/Chest: No Respiratory Distress, Lungs Clear, Normal Breath Sounds, No Accessory Muscle Use Cardiovascular: Normal Peripheral Pulses, Regular Rate, Rhythm, No Edema, No Murmur Peripheral Pulses: 2+: Radial (L), Radial (R) GI/Abdominal: Normal Bowel Sounds, Soft, Non-Tender, No Distention Back Exam: Normal Inspection Extremities: Normal Inspection, Normal Capillary Refill Neurological: Alert, Oriented, Normal Cognition, No Motor/Sensory Deficits Psychiatric: Normal Affect, Normal Mood Skin Exam: Warm, Dry, Intact, Normal Color EKG INTERPRETATION EKG Date: 01/22/17 Time: 02:31 Rhythm: A-Fib Rate (Beats/Min): 91 [place]: Normal P-Wave: Absent QRS: Normal ST-T: Other (No acute elevation noted.) QT: Normal Comparison: NA - No Prior EKG EKG Interpretation Comments: AFib Course - Vital Signs Last Recorded V/S: Last Vital Signs Temp 36.6 C 01/22/17 02:11 Pulse 100 01/22/17 04:50 Resp 22 H 01/22/17 04:50 BP 166/101 H 01/22/17 04:50 Pulse Ox 98 01/22/17 04:50 - Orders/Labs/Meds Orders: Active Orders 24 hr Category Date Time Status Cardiac Monitoring [RC] . DIRECTED Care 01/22/17 02:18 Active EKG Documentation Completion [RC] ASDIRECTED Care 01/22/17 02:16 Active EKG Documentation Completion [RC] ASDIRECTED Care 01/22/17 04:35 Active Sodium Chloride 0.9% [Saline Flush] Med 01/22/17 02:17 Active 10 ml FLUSH ASDIRECTED PRN Saline Lock Insert [OM.PC] Routine Oth 01/22/17 02:17 Ordered EKG 12 Lead [EK] Routine Ther 01/22/17 04:18 Ordered Medication Orders Sodium Chloride (Saline Flush) 10 ml FLUSH ASDIRECTED PRN PRN Reason: Keep Vein Open Labs: Laboratory Tests 01/22/17 01/22/17 01/22/17 Range/Units 02:30 02:30 02:30 WBC 5.1 (4.0-10.2) K/uL RBC 3.49 L (4.33-5.41) M/uL Hgb 10.6 L (13.1-16.8) g/dL Hct 33.1 L (39.0-49.0) % MCV 94.8 (84.0-98.0) fL MCH 30.4 (28.2-33.3) pg MCHC 32.0 (31.7-36.0) g/dL RDW 13.1 (11.2-14.1) % Plt Count 243 D (150-350) K/uL Neut % (Auto) 62.9 (45.0-80.0) % Lymph % (Auto) 22.0 (10.0-50.0) % [place] % (Auto) 11.4 (2.0-14.0) % Eos % (Auto) 3.3 (0.0-5.0) % Baso % (Auto) 0.4 (0.0-2.0) % Neut # (Auto) 3.19 (1.40-7.00) K/uL Lymph # (Auto) 1.12 (0.50-3.50) K/uL [place] # (Auto) 0.58 (0.00-1.00) K/uL Eos # (Auto) 0.17 (0.00-0.50) K/uL Baso # (Auto) 0.02 (0.00-0.20) K/uL PT 65.4 H D (9.8-11.7) SEC INR 5.6 H* Sodium 139 (136-145) mmol/L Potassium 4.5 (3.5-5.1) mmol/L Chloride 104 (98-107) mmol/L Carbon Dioxide 26.6 (21.0-32.0) mmol/L BUN 31 H (7-18) mg/dL Creatinine 1.51 H (0.51-1.17) mg/dL Est Cr Clr Drug Dosing 44.32 mL/min Estimated GFR (MDRD) 45 mL/min Glucose 152 H (74-106) mg/dL Calcium 8.4 L (8.5-10.1) mg/dL Total Bilirubin 0.1 L (0.2-1.0) mg/dL AST 17 (15-37) U/L ALT 15 (12-78) U/L Alkaline Phosphatase 98 (46-116) IU/L Creatine Kinase 87 (26-308) U/L Creatine Kinase Index 0.8 (0.0-2.5) % CK-MB (CK-2) 0.70 (0.00-3.60) ng/mL Troponin I 0.014 (0.000-0.056) ng/mL Total Protein 6.6 (6.4-8.2) g/dL Albumin 3.1 L (3.4-5.0) g/dL Specimen Type Urine Color Urine Appearance Urine pH (5.0-9.0) Ur Specific [place] (1.005-1.030) Urine Protein (NEGATIVE) mg/dL Urine Glucose (UA) (NEGATIVE) mg/dL Urine Ketones (NEGATIVE) mg/dL Urine Occult Blood (NEGATIVE) Urine Nitrite (NEGATIVE) Urine Bilirubin (NEGATIVE) Urine Urobilinogen (0.2-1.0) E.U./dL Ur Leukocyte Esterase (NEGATIVE) Urine RBC /HPF Urine WBC /HPF Ur Epithelial Cells /LPF Urine Bacteria (NONE TO FEW) /HPF 01/22/17 Range/Units 02:53 WBC (4.0-10.2) K/uL RBC (4.33-5.41) M/uL Hgb (13.1-16.8) g/dL Hct (39.0-49.0) % MCV (84.0-98.0) fL MCH (28.2-33.3) pg MCHC (31.7-36.0) g/dL RDW (11.2-14.1) % Plt Count (150-350) K/uL Neut % (Auto) (45.0-80.0) % Lymph % (Auto) (10.0-50.0) % [place] % (Auto) (2.0-14.0) % Eos % (Auto) (0.0-5.0) % Baso % (Auto) (0.0-2.0) % Neut # (Auto) (1.40-7.00) K/uL Lymph # (Auto) (0.50-3.50) K/uL [place] # (Auto) (0.00-1.00) K/uL Eos # (Auto) (0.00-0.50) K/uL Baso # (Auto) (0.00-0.20) K/uL PT (9.8-11.7) SEC INR Sodium (136-145) mmol/L Potassium (3.5-5.1) mmol/L Chloride (98-107) mmol/L Carbon Dioxide (21.0-32.0) mmol/L BUN (7-18) mg/dL Creatinine (0.51-1.17) mg/dL Est Cr Clr Drug Dosing mL/min Estimated GFR (MDRD) mL/min Glucose (74-106) mg/dL Calcium (8.5-10.1) mg/dL Total Bilirubin (0.2-1.0) mg/dL AST (15-37) U/L ALT (12-78) U/L Alkaline Phosphatase (46-116) IU/L Creatine Kinase (26-308) U/L Creatine Kinase Index (0.0-2.5) % CK-MB (CK-2) (0.00-3.60) ng/mL Troponin I (0.000-0.056) ng/mL Total Protein (6.4-8.2) g/dL Albumin (3.4-5.0) g/dL Specimen Type Urincc Urine Color Light yellow Urine Appearance Clear Urine pH 7.0 (5.0-9.0) Ur Specific [place] 1.010 (1.005-1.030) Urine Protein 100 H (NEGATIVE) mg/dL Urine Glucose (UA) Negative (NEGATIVE) mg/dL Urine Ketones Negative (NEGATIVE) mg/dL Urine Occult Blood Moderate H (NEGATIVE) Urine Nitrite Negative (NEGATIVE) Urine Bilirubin Negative (NEGATIVE) Urine Urobilinogen 0.2 (0.2-1.0) E.U./dL Ur Leukocyte Esterase Negative (NEGATIVE) Urine RBC 5-10 H /HPF Urine WBC Not seen /HPF Ur Epithelial Cells Not seen /LPF Urine Bacteria Not seen (NONE TO FEW) /HPF Meds: Medications Generic Name Dose Route Start Last Admin Trade Name Freq PRN Reason Stop Dose Admin Sodium Chloride 10 ml 01/22/17 02:17 Saline Flush FLUSH ASDIRECTED PRN Keep Vein Open Discontinued Medications Generic Name Dose Route Start Last Admin Trade Name Freq PRN Reason Stop Dose Admin Metoprolol Tartrate 25 mg 01/22/17 04:03 01/22/17 04:08 Lopressor PO 01/22/17 04:04 25 mg ONETIME ONE Administration - Re-Assessments/Exams Free Text/Narrative Re-Assessment/Exam: 01/22/17 03:41 Patient remained comfortable and free of palpitations while in ER. Noted to have normal Troponin. INR elevated however. Creatnine 1.51 Glucose 152 Plan at this time is to let patient return home. He has scheduled follow up with primary provider in approximately one week. Given elevated INR will have patient hold his Coumadin. To call his clinic on Monday and have INR rechecked that day. Further planning can be discussed at that time depending on Coumadin level. May need to consider Holter monitor evaluation. Free Text/Narrative Re-Assessment/Exam: 01/22/17 04:45 Run of what appeared to be 13 beats of VTach noted on monitor after 4am. Patient did not complain of feeling lightheaded. No chest pain. Call placed to [facility]. Visited with , Hospitalist. She in turn spoke to Cardiology. Ultimately [facility] offered to take the patient and observe him at their facility and have echo performed today. Patient and were agreeable with transfer to [facility]. BP remained somewhat elevated, additional dose of Metoprolol given. Departure - Departure Time of Disposition: 04:58 Disposition: DC/Tfer to Acute Hospital 02 Reason for Transfer *Q: Other Condition: Good Clinical Impression: Elevated INR, V-tach, IDDM (insulin dependent diabetes mellitus), Renal insufficiency Hypertension Qualifiers: Hypertension type: essential hypertension Qualified Code(s): I10 - Essential ( primary) hypertension Atrial fibrillation Qualifiers: Atrial fibrillation type: chronic Qualified Code(s): I48.2 - Chronic atrial fibrillation Anemia Qualifiers: Anemia type: unspecified type Qualified Code(s): D64.9 - Anemia, unspecified Instructions: Atrial Fibrillation, [id number] Referrals: Ricky Bailey PA [Primary Care Provider] - 1 Week (pending) Forms: ED Department Discharge Additional Instructions: Transfer to [facility] for further evaluation, monitoring, and cardiac echo. - My Orders Last 24 Hours: My Active Orders 01/22/17 02:16 EKG Documentation Completion [RC] ASDIRECTED 01/22/17 02:17 Sodium Chloride 0.9% [Saline Flush] 10 ml FLUSH ASDIRECTED PRN Saline Lock Insert [OM.PC] Routine 01/22/17 02:18 Cardiac Monitoring [RC] . DIRECTED 01/22/17 04:18 EKG 12 Lead [EK] Routine 01/22/17 04:35 EKG Documentation Completion [RC] ASDIRECTED - Assessment/Plan Last 24 Hours: My Active Orders 01/22/17 02:16 EKG Documentation Completion [RC] ASDIRECTED 01/22/17 02:17 Sodium Chloride 0.9% [Saline Flush] 10 ml FLUSH ASDIRECTED PRN Saline Lock Insert [OM.PC] Routine 01/22/17 02:18 Cardiac Monitoring [RC] . DIRECTED 01/22/17 04:18 EKG 12 Lead [EK] Routine 01/22/17 04:35 EKG Documentation Completion [RC] ASDIRECTED
[2017-01-22] MEDS ORDERED: Metoprolol Tartrate 25 MG Tab PO ONE (04:03)
[2017-01-22] MEDS ORDERED: Labetalol 20 MG/4 ML Syringe IVPUSH ONE (05:05)
[2017-01-22] MEDS ORDERED: LORazepam 0.5 MG Tab PO ONE (05:06)
[2017-01-22 05:38] VITALS: BP 141/90
== END 2017-01-22 05:44 ==
LOC: LL.ED 02:11
DX: I48.2 Chronic atrial fibrillation (principal); I12.9 Hypertensive chronic kidney disease with stage 1 through stage 4 chronic kidney disease, or unspecified chronic kidney disease; E11.9 Type 2 diabetes mellitus without complications; D64.9 Anemia, unspecified; N28.9 Disorder of kidney and ureter, unspecified; R79.1 Abnormal coagulation profile; I47.2 Ventricular tachycardia; E78.00 Pure hypercholesterolemia, unspecified; I73.9 Peripheral vascular disease, unspecified; K21.9 Gastro-esophageal reflux disease without esophagitis; N18.9 Chronic kidney disease, unspecified; E11.21 Type 2 diabetes mellitus with diabetic nephropathy; E11.40 Type 2 diabetes mellitus with diabetic neuropathy, unspecified; M19.90 Unspecified osteoarthritis, unspecified site; Z87.440 Personal history of urinary (tract) infections; Z85.828 Personal history of other malignant neoplasm of skin; Z90.49 Acquired absence of other specified parts of digestive tract; Z96.659 Presence of unspecified artificial knee joint; Z98.890 Other specified postprocedural states; Z79.01 Long term (current) use of anticoagulants; Z79.4 Long term (current) use of insulin; Z79.899 Other long term (current) drug therapy; Z88.8 Allergy status to other drugs, medicaments and biological substances
CPT/HCPCS: 36415; 80053; 81001; 82550; 82553; 84484; 85025; 85610; 93005; 96374; 99285; A9270; J7050

== ENCOUNTER 2019-05-16 10:40 | Day surgery (SDC) | payer MEDICARE, OTHER ==
[2019-05-16] MEDS ORDERED: Sodium Chloride 0.9% 10 ML Syringe FLUSH PRN (10:45)
[2019-05-16] MEDS ORDERED: Lactated Ringers 1,000 ML IV SCH (10:45)
[2019-05-16] MEDS ORDERED: Propofol 200 MG/20 ML SDV ONE (12:14)
[2019-05-16] MEDS ORDERED: Midazolam 1 MG/ML 2 ML SDV ONE (12:14)
--- NOTE | 2019-05-16 12:19 | PCM.PN ---
- General Info Date of Service: 05/16/19 - Review of Systems Systems Review Comment:: 78-year-old male referred for colonoscopy. He has a history of colon polyps and his last colonoscopy was 3 years ago. He is medically stable to proceed today. His recent history and physical is reviewed and no significant changes are noted. I have discussed the proposed colonoscopy with the patient. Risks such as but not limited to bleeding and GI injury reviewed. He agrees to proceed. - Patient Data Vitals - Most Recent: Last Vital Signs Temp 98.3 F 05/16/19 11:51 Pulse 82 05/16/19 11:51 Resp 20 05/16/19 11:51 BP 121/66 05/16/19 11:51 Pulse Ox 97 05/16/19 11:51 Weight - Most Recent: 94.347 kg Lab Results Last 24 Hours: Laboratory Results - last 24 hr 05/16/19 Range/Units 11:36 POC Glucose 104 (65-110) mg/dl Med Orders - Current: Current Medications Lactated Ringer's (Ringers, Lactated) 1,000 mls @ 125 mls/hr IV ASDIRECTED PILAR Last Admin: 05/16/19 11:50 Dose: 125 mls/hr Sodium Chloride (Saline Flush) 10 ml FLUSH ASDIRECTED PRN PRN Reason: Keep Vein Open Discontinued Medications Midazolam HCl (Versed 1 Mg/Ml) Confirm Administered Dose 2 mg .ROUTE .STK-MED ONE Stop: 05/16/19 12:15 Propofol (Diprivan 20 Ml) Confirm Administered Dose 200 mg .ROUTE .STK-MED ONE Stop: 05/16/19 12:15 - Problem List Review Problem List Initiated/Reviewed/Updated: Yes - My Orders Last 24 Hours: My Active Orders 05/16/19 10:45 Patient Status [ADT] Routine Blood Glucose Check, Bedside [RC] ONETIME Peripheral IV Care [RC] . DIRECTED Verify Patient Consent Obtain [RC] ASDIRECTED Lactated Ringers [Ringers, Lactated] 1,000 ml IV ASDIRECTED Sodium Chloride 0.9% [Saline Flush] 10 ml FLUSH ASDIRECTED PRN Peripheral IV Insertion Adult [OM.PC] Routine - Assessment Assessment:: history of colon polyps - Plan Plan:: colonoscopy
--- NOTE | 2019-05-16 12:53 | PCM.OPNOTE ---
- General Post-Op/Procedure Note Date of Surgery/Procedure: 05/16/19 Operative Procedure(s): Colonoscopy with Polypectomy Findings: Small transverse colon polyp Pre Op Diagnosis: History of colon polyps Post-Op Diagnosis: Colon Polyp Anesthesia Technique: MAC Primary Surgeon: Humberto Segura Pathology: Transverse colon polyp EBL in mLs: 0 Complications: None Condition: Good
[2019-05-16 14:29] VITALS: BP 101/48; PULSE 61
--- NOTE | 2019-05-16 14:48 | OR ---
Date of Procedure: 05/16/2019 PREOPERATIVE DIAGNOSIS: History of colon polyps. POSTOPERATIVE DIAGNOSES: Colon polyp. OPERATION PERFORMED: Colonoscopy with polypectomy. INDICATIONS FOR SURGERY: This 78-year-old male has a known history of colon polyps and comes today for surveillance colonoscopy. FINDINGS: In the midportion of the patient's transverse colon, there is a small colon polyp estimated at 6 mm in size. It is sessile in configuration. The remainder of the colon appeared normal. DESCRIPTION OF PROCEDURE: The patient was taken to the operating room. He was given intravenous sedation, and with him in the left lateral decubitus position, digital rectal exam was performed showing no rectal masses. The Olympus colonoscope was inserted into the rectum. Retroflexed examination of the rectal canal was performed. The scope was then carefully advanced under direct visualization through the entire length of the colon until the cecum was reached. Cecal acquisition was confirmed by noting the normal internal cecal anatomy including the appendiceal orifice and ileocecal valve. The light was also noted to transilluminate the abdominal wall in the right lower quadrant. After examining the cecum, the scope was slowly withdrawn sequentially re- examining the colonic segments. In the transverse colon, the above-described polyp was identified. This was removed with a cautery snare and retrieved. Examination was then continued until completed and the entire rectum and colon had been completely examined. The scope was then removed, and the patient was taken from the operating room in satisfactory condition. ESTIMATED BLOOD LOSS: 0. COMPLICATIONS: None. PROGNOSIS: Good. XAVIER Segura MD /[id number]
== END 2019-05-16 14:03 | disposition home or self-care (01) ==
LOC: LL.SDS 10:40
PROVIDERS: ATTEND Surgery
DX: Z12.11 Encounter for screening for malignant neoplasm of colon (principal); D12.3 Benign neoplasm of transverse colon; I25.10 Atherosclerotic heart disease of native coronary artery without angina pectoris; I48.19 Other persistent atrial fibrillation; I13.0 Hypertensive heart and chronic kidney disease with heart failure and stage 1 through stage 4 chronic kidney disease, or unspecified chronic kidney disease; N18.3 Chronic kidney disease, stage 3 (moderate); I50.9 Heart failure, unspecified; E11.40 Type 2 diabetes mellitus with diabetic neuropathy, unspecified; E78.5 Hyperlipidemia, unspecified; K21.9 Gastro-esophageal reflux disease without esophagitis; Z86.010 Personal history of colon polyps; Z79.01 Long term (current) use of anticoagulants; Z79.4 Long term (current) use of insulin; Z79.899 Other long term (current) drug therapy
CPT/HCPCS: 00811; 82962; J2250; J2704; J7120

== ENCOUNTER 2020-01-24 08:35 | Emergency (ER) | payer MEDICARE, OTHER ==
[2020-01-24 08:43] VITALS: BP 118/60; PULSE 65
--- NOTE | 2020-01-24 08:53 | EDM.PDOC ---
ED HPI GENERAL MEDICAL PROBLEM - General Chief Complaint: General Stated Complaint: LEFT EAR EXTERIOR BLEEDING Time Seen by Provider: 01/24/20 08:50 Source of Information: Reports: Patient, Old Records ([facility] chart/EMR), Other ([facility] EMR today with [facility] EMR reviewed on 07/09/18). Denies: Family History Limitations: Reports: No Limitations - History of Present Illness INITIAL COMMENTS - FREE TEXT/NARRATIVE: The patient was brought to the emergency room via private automobile for evaluation of refractory bleeding from previous cryotherapy site on his left auricle with the patient taking the scab off yesterday afternoon. He denies any other injury, local signs of infection, etc. The patient denies any chest pain/pressure, heart flutter, dizziness, orthostasis, orthopnea, diaphoresis, paresthesias, or any other anginal-type symptoms, however his overall exercise tolerance continues to be poor despite recent PTCA/stent 1 and 11/27/19. No recen t history of abdominal pain, heartburn, nausea, diarrhea, melena, gross hematochezia, or any food intolerance, including fatty foods, etc.. He denies any gross hematuria, colic, or other UTI symptoms. The patient also denies any recent fever, cough, wheezing, dyspnea, etc.. He denies any other pain or discomfort. Onset: Sudden Onset Date: 01/23/20 Onset Time: 17:30 Duration: Getting Worse, Intermittent Location: Reports: Other (As above). Denies: Head, Face, Neck, Chest, Abdomen, Back, Upper Extremity, Left, Upper Extremity, Right, Radiates to Quality: Reports: Same as Previous Episode, Other (No pain) Severity: Mild (Bleeding) Improves with: Reports: None Worsens with: Reports: None Context: Reports: Trauma (As above) Associated Symptoms: Reports: Shortness of Breath. Denies: Confusion, Chest Pain, Cough, Diaphoresis, Fever/Chills, Headaches, Loss of Appetite, Nausea/Vomiting, Syncope, Weakness Treatments [employer]: Reports: Dressing(s) - Related Data Allergies Allergy/AdvReac Type Severity Reaction Status Date / Time hydromorphone [From Dilaudid] Allergy Other Verified 01/24/20 08:45 hydroxyzine [From Vistaril] Allergy UNKNOWN Verified 01/24/20 08:45 meperidine [From Demerol] Allergy UNKNOWN Verified 01/24/20 08:45 Home Meds: Home Meds Allopurinol [Zyloprim] 0.5 tab PO DAILY 05/04/16 [History] Rosuvastatin [Crestor] 0.5 tab PO BEDTIME 05/04/16 [History] Cholecalciferol (Vitamin D3) [Vitamin D3] 2,000 units PO DAILY 12/01/16 [History] Metoprolol Succinate [Toprol XL] 200 mg PO DAILY 01/22/17 [History] Ferrous Sulfate 325 mg PO TIDMEALS 01/17/18 [History] Acetaminophen [Tylenol Extra Strength] 1,000 mg PO BID 07/09/18 [History] Diltiazem [Dilacor XR] 240 mg PO DAILY 07/09/18 [History] Oxybutynin [Oxybutynin ER] 5 mg PO DAILY 07/09/18 [History] Warfarin [Coumadin] 2.5 mg PO DAILY@2200 07/09/18 [History] Bumetanide 1 mg PO BID 05/16/19 [History] cephALEXin [Cephalexin] 1 tab PO BID 05/16/19 [History] Aspirin [Children's Aspirin] 81 mg PO DAILY 01/24/20 [History] Clopidogrel [Plavix] 75 mg PO DAILY 01/24/20 [History] Insulin Glarg,Human.Rec.Analog [Lantus] 8 unit SQ DAILY 01/24/20 [History] Past Medical History HEENT History: Reports: Hard of Hearing, Impaired Vision, Other (See Below). Denies: Allergic Rhinitis, Cataract, Glaucoma, Macular Degeneration, Otitis Media, Retinal Detachment Other HEENT History: The patient wears glasses. 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 Cardiovascular History: Reports: Afib, Arrhythmia, CAD, Heart Murmur, High Cholesterol, Hypertension, PTCA, Stents. Denies: Aneurysm, Blood Clots/VTE/DVT, Bypass, Cardiomyopathy, Heart Failure, PR, Pacemaker, Syncope Other Cardiovascular History: Right atrial enlargement with moderate tricuspid valve insufficiency and mild to moderate mitral valve insufficiency by echocardiogram as below. Mild aortic valve stenosis by clinical exam only. Chronic atrial fibrillation with current Coumadin therapy. PVCs. Bradycardia secondary to medications. Dyslipidemia. Respiratory History: Reports: Intubation, Previous, Sleep Apnea. Denies: Asthma, Bronchitis, Recurrent, COPD, Intubation, Difficult, PE, Pneumonia, Recurrent, Pneumothorax, Pulmonary Fibrosis, TB Other Respiratory History: Patient has been compliant with his CPAP. Gastrointestinal History: Reports: Other (See Below). Denies: Bowel Obstruction, Celiac Disease, Cholelithiasis, Chronic Constipation, Chronic Diarrhea, Colon Polyp, Diverticulosis, Fatty Liver, Fecal Incontinence, GERD, GI Bleed, Hepatitis, Hiatal Hernia, Inflammatory Bowel Disease, Irritable Bowel Syndrome, Jaundice, PUD Other Gastrointestinal History: Umbilical hernia. Tubular adenoma excised via colonoscopy from the mid transverse colon on 05/16/19. History of diminutive colonic polyps of the proximal ascending colon on 01/31/13 with subsequent small tubular adenomas 2 one in the distal ascending colon and the other at the hepatic flexure on 05/05/16. History of colitis. Polyposis of the gallbladder diagnosed on 05/25/99. Benign hepatic cysts. Genitourinary History: Reports: BPH, Chronic Renal Insuffiency, Hydronephrosis, Prostate Disorder, Renal Disease. Denies: Acute Renal Failure, Renal Calculus, Retention, Urinary, STD, Urinary Incontinence Other Genitourinary History: Stage III/IV diabetic nephropathy/renal insufficiency with patient currently in a watch program for possible future dialysis. Large left retroperitoneal hematoma secondary to ruptured renal cyst from a fall on 09/16/17. Chronic prostatitis with hematuria, transitional cell cancer as below, diabetic nephropathy with proteinuria. Moderate bilateral benign polycystic renal disease including a stable large 16 cm thoracic renal cyst causing moderate left-sided hydronephrosis secondary to compression between the cyst and the abdominal aorta. No urolithiasis. Musculoskeletal History: Reports: Arthritis, Back Pain, Chronic, Gout, Neck Pain, Chronic, Osteoarthritis. Denies: Amputation, Fracture, RA, SLE Other Musculoskeletal History: Spinal stenosis of lumbar region (L3-4), sternoclavicular joint subluxation (left) on 07/19/01, left ankle fracture at age 21, idiopathic myositis. Hyperuricemia Neurological History: Reports: Neuropathy, Diabetic, Neuropathy, Peripheral. Denies: Alzheimers Disease, Cerebral Aneurysms, Concussion, CVA, Headaches, Chronic, Head Trauma, Migraines, MS, Parkinson's, Seizure, TIA Psychiatric History: Reports: None. Denies: Abuse, Victim of, ADD, ADHD, Addiction, Anxiety, Depression, Psych Hospitalization(s), PTSD, Suicide Attempt, Suicidal Ideation Endocrine/Metabolic History: Reports: Diabetes, Type II, IDDM, Obesity/BMI 30+, Vitamin D Deficiency. Denies: Diabetes, Type I, Diabetes Mellitus, Type 3c, Hypothyroidism Other Endocrine/Metabolic History: Hyperkalemia. Hematologic History: Reports: Anemia, Iron Deficiency. Denies: Blood Transfusion(s) Other Hematologic History: Chronic anemia secondary to end-stage renal disease and Coumadin therapy with additional history of anemia secondary to large retroperitoneal hematoma in August 2017 as above. Immunologic History: Reports: Immunosuppression, Other (See Below). Denies: AIDS, HIV, SLE Other Immunologic History: Immunosuppression secondary to end-stage renal disease, diabetes, etc. Oncologic (Cancer) History: Reports: Basal Cell Carcinoma, Bladder, Squamous Cell Carcinoma, Other (See Below). Denies: Colon, Hodgkin's Lymphoma, Leukemia, Lymphoma, Malignant Melanoma, Non-Hodgkin's Lymphoma, Prostate, Renal Other Oncologic History: Basal cell carcinoma exsized from the helix of the right ear in 2014. 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 Transitional cell carcinoma diagnosed on 09/15/08. Dermatologic History: Reports: Venous Stasis Dermatitis, Other (See Below) Other Dermatologic History: Basal cell and squamous cell carcinoma as above. Seborrheic keratosis with actinic keratosis with multiple cryotherapies. - Infectious Disease History Infectious Disease History: Reports: Chicken Pox, Measles. 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 - Past Surgical History Head Surgeries/Procedures: Reports: None HEENT Surgical History: Reports: Adenoidectomy, Oral Surgery, Tonsillectomy, Other (See Below). Denies: Cataract Surgery, Detached Retina, Laser Surgery, LASIK, Myringotomy w Tube(s), Naso-Sinus Surgery Other HEENT Surgeries/Procedures: Right upper dental implants. Multiple teeth extractions. Tonsillectomy and adenoidectomy as a child. Cardiovascular Surgical History: Reports: Coronary Artery Stent, Percutaneous Transluminal Angioplasty, Vascular Surgery, Other (See Below). Denies: Coronary Artery Bypass, Varicose Other Cardiovascular Surgeries/Procedures: PTCA/stent times one of the mid LAD on 11/27/19. Left arm AV fistula placement on 01/02/19. Respiratory Surgical History: Reports: None. Denies: Thoracentesis GI Surgical History: Reports: Appendectomy, Colonoscopy, Polypectomy, Other (See Below). Denies: Cholecystectomy, EGD, Hernia, Abdominal, Hernia, Inguinal, Hernia Repair/Other Other GI Surgeries/Procedures: Last colonoscopy on 05/16/19 with previous evaluations on 05/05/16 and 01/31/13 with multiple polypectomies as above. Appendectomy in 1971. Male Surgical History: Reports: None. Denies: Circumcision, TURP- Transurethral Resection of Prostate, Vasectomy Endocrine Surgical History: Reports: None. Denies: Thyroid Biopsy Neurological Surgical History: Reports: Discectomy, Lumbar Spine, Other (See Below). Denies: C-Spine, Laminectomy, Sacral Spine, Spinal Fusion, Thoracic Spine, Vertebroplasty Other Neurological Surgeries/Procedures: L3-L4 decompression on 02/04/14. Musculoskeletal Surgical History: Reports: Arthroscopic Knee, Other (See Below) Other Musculoskeletal Surgeries/Procedures:: Bilateral knee arthroscopic evaluations initially in September 1997 and then in June 1998. Subsequent bilateral total knee arthroplasties on 12/07/07 with additional subsequent complete two-stage left TKA revision in April 2009 secondary to refractory MSSA infection with repeat TKA and partial revision with irrigation of plastic components on 11/23/12. Additional left knee irrigation and debridement on 12/13/16. Initial arthroscopic and then conversion to open right shoulder rotator cuff repair on 08/18/03. Oncologic Surgical History: Reports: Other (See Below) Other Oncologic Surgeries/Procedures: Multiple cryotherapies of benign lesions as above. Incomplete excision of squamous cell carcinoma mid lower lip on 01/21/20. Mohs procedure of the right helix region for excision of basal cell carcinoma on 05/28/15. Dermatological Surgical History: Reports: Skin Biopsy, Other (See Below) Other Dermatological Surgeries/Procedures: As above. - Past Imaging History Past Imaging History: Reports: Angiography (Last Heart catheterization with results as above with previous evaluation on 01/31/18.), Cardiac Echo (Last echocardiogram on 03/21/19 with ejection fraction of 6570 percent with previous evaluations on 01/22/17 and 10/10/17. Transesophageal echocardiogram on 11/28/16 with previous echocardiogram in 11/22/16.), CAT Scan (CT of the abdomen and pelvis on 01/17/17, 03/27/18, 11/13/17, and 09/16/17.), Holter Monitor (02/05/18 and 12/14/17), Mammogram (10/01/09), PFT (Last PFTs including diffusion studies on 04/09/18.), Sleep Study (11/10/17.), Stress Testing (Low level cardiac stress test on 01/23/20. Negative Cardiolite stress test on 12/26/17.), Ultrasound (Bilateral arm ultrasound mapping for AV fistula placement on 12/26/18. Renal ultrasound on 09/28/17 and 09/18/17.), Venous Doppler (Left leg on 04/04/18.), Other (See Below) (IVP on 09/29/08.) Social & Family History - Family History HEENT: Reports: None. Denies: Glaucoma, Macular Degeneration, Retinal Detachment Cardiac: Reports: Arrhythmia, Bypass, CAD, High Cholesterol, Hypertension, PR, Other (See Below). Denies: Afib, Aneurysm, Blood Clots/VTE/DVT, Heart Failure, Heart Murmur, Prior Cardiac Arrest, PVD/COD Other Cardiac Family History: Father from an PR at age 69, mother with unknown type of cardiac arrhythmia, sister with CABG in her 60s, hypertension in sister, mother and sister with hyperlipidemia. Respiratory: Reports: None. Denies: Asthma, COPD, PE, Pneumothorax, Sleep Apnea GI: Reports: Colon Polyps, GERD, Other (See Below). Denies: Celiac Disease, Cholelithiasis, GI bleed, Inflammatory Bowel Disease, Irritable Bowel Syndrome, PUD Other GI Family History: Brother and sister with GERD. Brother with colon cancer as below. : Reports: Dialysis, Renal Disease/Insufficiency, Other (See Below) Other Family History: Sister and nephew with benign hematuria. Sister with renal failure requiring dialysis. OBGYN: Reports: None. Denies: Endometriosis, Recurrent Spontaneous Musculoskeletal: Reports: None. Denies: Arthritis, Back pain, Chronic, Gout, Osteoarthritis, RA Neurological: Reports: None. Denies: Alzheimers Disease, Cerebral Aneurysms, CVA, Dementia, Migraines, MS, Parkinson's, Seizure, TIA Psychiatric: Reports: None. Denies: Abuse, Victim of, ADD, ADHD, Anxiety, Depression, Psych Hospitalization(s), PTSD, Suicide Attempt Endocrine/Metabolic: Reports: Diabetes, type II, IDDM, Other (See Below) Other Endocrine/Metabolic Family History: Brother, mother and sister with IDDM, father parents with AODM. Hematologic: Reports: None. Denies: Anemia Immunologic: Reports: None. Denies: AIDS, HIV, SLE Dermatologic: Reports: None. Denies: Eczema, Psoriasis Oncologic: Reports: Bone, Colon, Pancreatic, Other (See Below) Other Oncologic Family History: Maternal aunt with unknown type of fatal cancer possibly bone cancer in her 50s, maternal cousin with fatal stomach cancer in his 50s, brother with colon cancer at age 58. Half sister with fatal pancreatic cancer at age 84. Patient denies history of colon cancer in sister at age 52 despite [facility] records. - Tobacco Use Smoking Status *Q: Never Smoker Tobacco Use Within Last Twelve Months: No Used Tobacco, but Quit: No Smoking Cessation Information Provided To Patient: No Second Hand Smoke Exposure: No Second Hand Smoke Education Provided: No - Caffeine Use Caffeine Use: Reports: Soda (1 soda per week), Tea (2 Glasses per day). Denies: Coffee, Energy Drinks - Alcohol Use Alcohol Use History: Yes Days Per Week of Alcohol Use: 0 Number of Drinks Per Day: 1 Number of Drinks Per Day Comment: Usually beer twice a month. No previous DWIs, problems with alcohol abuse, etc. 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 ED EXAM, GENERAL - Physical Exam Exam: See Below Ears: Hearing Loss (Mild bilateral hearing loss), Other (Mild 0.25 cm area of superficial inflammation without evidence of infection or significant acute bleeding over the superior left auricle) Head: Atraumatic, Normocephalic, Other (Cryotherapy sites on the forehead). No: Facial Swelling, Facial Tenderness, Sinus Tenderness Neck: Supple, Non-Tender, Full Range of Motion, Carotid Bruit (Mild bilateral carotid bruits versus transmitted heart sounds). No: Lymphadenopathy (L), Lymphadenopathy (R), Thyromegaly Respiratory/Chest: No Respiratory Distress, Lungs Clear, Normal Breath Sounds, No Accessory Muscle Use, Chest Non-Tender. No: Pleural Rub, Retractions Cardiovascular: Normal Peripheral Pulses, No Gallop, No JVD, No Rub, Systolic Murmur (1/6 ROMÁN of the mitral and aortic valves), Irregularly Irregular. No: No Edema (Dependent edema as below), Gallop/S3, Gallop/S4, Friction Rub Peripheral Pulses: 2+: Radial (L), Radial (R) GI/Abdominal: Normal Bowel Sounds, Soft, Non-Tender, No Organomegaly, No Distention, No Abnormal Bruit, No Mass, Other (Obese). No: Guarding (Male) Exam: Deferred Rectal (Males) Exam: Deferred Back Exam: Normal Inspection, Full Range of Motion. No: CVA Tenderness (L), CVA Tenderness (R), Muscle Spasm Extremities: Normal Range of Motion, Non-Tender, No Pedal Edema, Normal Capillary Refill, Pedal Edema (Trace to +1 bilateral pedal/pretibial edema). No: Ana M's Sign Neurological: Alert, Oriented, CN II-XII Intact, Normal Cognition, Normal Gait, No Motor/Sensory Deficits Psychiatric: Normal Affect, Normal Mood Skin Exam: Wound/Incision (Cryotherapy sites on his forehead, left auricle, and also excision side in the mid lower lip with no evidence of infection). No: Diaphoretic Lymphatic: No Adenopathy Course - Vital Signs Last Recorded V/S: Last Vital Signs Temp 36.8 C 01/24/20 08:36 Pulse 65 01/24/20 08:36 Resp 16 01/24/20 08:36 BP 118/60 01/24/20 08:36 Pulse Ox 100 01/24/20 08:36 Vital Signs - 24 hr 01/24/20 08:36 Temperature [ 36.8 C Temporal] Pulse, 65 Peripheral [ Pulse Oximetry] Respiratory 16 Rate Blood Pressure 118/60 [Right Upper Arm] O2 Sat by Pulse 100 Oximetry - Orders/Labs/Meds Orders: Active Orders 24 hr Category Date Time Status Obtain Past Medical Record [OM.PC] Routine Oth 01/24/20 08:53 Active Labs: Laboratory Tests 01/24/20 01/24/20 Range/Units 09:00 09:00 WBC 5.7 (4.0-10.2) K/uL RBC 3.27 L (4.33-5.41) M/uL Hgb 10.1 L D (13.1-16.8) g/dL Hct 32.5 L (39.0-49.0) % MCV 99.4 H (84.0-98.0) fL MCH 30.9 (28.2-33.3) pg MCHC 31.1 L (31.7-36.0) g/dL RDW 15.0 H (11.2-14.1) % Plt Count 259 D (150-350) K/uL Neut % (Auto) 78.7 (45.0-80.0) % Lymph % (Auto) 7.9 L (10.0-50.0) % [place] % (Auto) 9.8 (2.0-14.0) % Eos % (Auto) 3.2 (0.0-5.0) % Baso % (Auto) 0.4 (0.0-2.0) % Neut # (Auto) 4.48 (1.40-7.00) K/uL Lymph # (Auto) 0.45 L (0.50-3.50) K/uL [place] # (Auto) 0.56 (0.00-1.00) K/uL Eos # (Auto) 0.18 (0.00-0.50) K/uL Baso # (Auto) 0.02 (0.00-0.20) K/uL PT 22.3 H D (9.5-12.0) SEC INR 2.3 Meds: Medications Discontinued Medications Generic Name Dose Route Start Last Admin Trade Name Freq PRN Reason Stop Dose Admin Neomycin/Polymyxin/Bacitracin 1 each 01/24/20 09:07 01/24/20 09:12 Triple Antibiotic Oint TOP 01/24/20 09:08 1 each ONETIME ONE Administration - Radiology Interpretation Free Text/Narrative:: None Departure - Departure Time of Disposition: 09:55 Disposition: Home, Self-Care 01 Condition: Good Clinical Impression: Atrial fibrillation, Coronary artery disease, Dyslipidemia, Hypertension, IDDM (insulin dependent diabetes mellitus), PVC's (premature ventricular con tractions), Pyogenic granuloma, Sleep apnea, Renal insufficiency, Peptic reflux disease, Squamous cell carcinoma, Actinic keratosis, Anemia, Gout - Discharge Information *PRESCRIPTION DRUG MONITORING PROGRAM REVIEWED*: Not Applicable *COPY OF PRESCRIPTION DRUG MONITORING REPORT IN PATIENT KAN: Not Applicable Referrals: Ricky Bailey PA [Primary Care Provider] - Forms: ED Department Discharge Additional Instructions: 1. Followup with your regular provider in 10-14 days as already scheduled with further instructions and possible medication adjustments, etc. as already directed at the time of your low level cardiac stress test yesterday. Your [facility] provider should review this report with you at the time of that visit. Bring these discharge instructions with you to that visit. 2. Antibacterial soap wash/soak with subsequent antibacterial dressing such as Neosporin, etc. as directed 2 times per day until the wound or laceration site completely heals. Keep the area clean and dry with activity restrictions as discussed. Never use hydrogen peroxide for wound care. 3. Immediately after this visit verify that your cellular telephone's voicemail has been activated and is empty. Also verify that your home telephone's answering machine is operating properly and has space to receive messages. Note that it is sometimes necessary for us to be able to contact you at a later date to discuss your medical care. 4. Please remember that we are ALWAYS here for you and want to answer any questions you may have. Feel free to call the hospital any time and we call you back SUZANNA. 5. Note some mild progressive anemia with hemoglobin of 10.1 in comparison to last known hemoglobin of 11.5 on 11/27/19 as per the [facility] records. Your INR today was therapeutic at 2.3. Recommend that a CBC, INR, TIBC panel, ferritin level, vitamin B 12 level, and folate acid level be conducted at the above follow-up visit depending on recent workup by your regular provider. You do not need to follow-up for a INR check on 01/26 as already scheduled unless other blood work had been ordered for that time with additional blood work as above per their discretion. Call your regular provider on 01/26 for further instructions. Sepsis Event Note (ED) - Evaluation Sepsis Screening Result: No Definite Risk - Focused Exam Vital Signs: Vital Signs Temp Pulse Resp BP Pulse Ox 01/24/20 08:36 36.8 C 65 16 118/60 100 - Problem List & Annotations (1) Actinic keratosis SNOMED Code(s): 910592447 Code(s): L57.0 - ACTINIC KERATOSIS Status: Acute Priority: High Annotation/Comment:: Bleeding from left auricular cryotherapy site. Silver nitrate sticks 2 were used with subsequent Surgicel splint dressing placed by the nurse. Wound care was discussed. INR is therapeutic as below. (2) Coronary artery disease SNOMED Code(s): 30350477 Code(s): I25.10 - ATHSCL HEART DISEASE OF [place] CORONARY ARTERY W/O ANG PCTRS Status: Chronic Priority: High Annotation/Comment:: No evidence of significant cardiac ischemia with exercise time of low level cardiac stress test on 01/23/20.. Note recent catheterization on 11/27/19 showed 85% mid LAD stenosis with drug-eluting stent/PTCA conducted in this region at that time. Additional evidence of 60% stenosis of the second diagonal coronary artery branch and 20% stenosis of the right coronary artery. Echocardiogram in February 2019 indicated a mild to moderate mitral valve insufficiency with persistent decreased exercise tolerance despite recent stent placement as above. Note that the patient is currently on Toprol-XL and Cardizem CD both in the a.m. with consideration of changing this regimen at his follow-up visit to a staggering regimen, i.e., Toprol XL in the a.m. and Cardizem CD in the p.m., in order to improve his symptoms and for better 24 hour blood pressure and heart rate control. Note occasional moderate bradycardia prior to onset of this procedure, including heart rate in the high 40s to low 50s. The patient was cautioned not to make these medication changes on his own. He already has a follow-up appointment scheduled with his regular provider in about 2 weeks. Secondary to history of mild to moderate mitral valve insufficiency consideration should be given to repeating a cardiology consultation and/or repeating his echocardiogram especially if his conditioning does not improve with the medication changes as above and/or through the cardiac rehabilitation program. Qualifiers: Coronary Disease-Associated Artery/Lesion type: [place] artery [place] vs. transplanted heart: [place] heart Associated angina: without angina Qualified Code(s): I25.10 - Atherosclerotic heart disease of [place] coronary artery without angina pectoris (3) Atrial fibrillation SNOMED Code(s): 11903207 Code(s): I48.91 - UNSPECIFIED ATRIAL FIBRILLATION Status: Acute Priority: High Annotation/Comment:: Rate controlled with recent low level cardiac stress test on 01/23/20 current medical regimen, although staggering regimen may be advisable as above. Continue Coumadin therapy and close follow-up by his regular provider as per his discharge instructions. INR is therapeutic today. Qualifiers: Atrial fibrillation type: longstanding persistent Qualified Code(s): I48.11 - Longstanding persistent atrial fibrillation (4) Dyslipidemia SNOMED Code(s): 695775960 Code(s): E78.5 - HYPERLIPIDEMIA, UNSPECIFIED Status: Chronic Priority: Medium Annotation/Comment:: Known dyslipidemia currently under therapy (5) Hypertension SNOMED Code(s): 61202902 Code(s): I10 - ESSENTIAL (PRIMARY) HYPERTENSION Status: Chronic Priority: Medium Annotation/Comment:: Blood pressures under good control with exercise. Qualifiers: Hypertension type: essential hypertension Qualified Code(s): I10 - Essential (primary) hypertension (6) IDDM (insulin dependent diabetes mellitus) SNOMED Code(s): 27534905 Code(s): E11.9 - TYPE 2 DIABETES MELLITUS WITHOUT COMPLICATIONS; Z79.4 - FIRE BOSS (CURRENT) USE OF INSULIN Status: Chronic Priority: High Annotation/Comment:: IDDM with diabetic nephropathy and neuropathy with stable Accu-Cheks at home, including a.m. Accu-Cheks averaging in the 130s and p.m. Accu-Cheks in the [id number] by his history (7) PVC's (premature ventricular contractions) SNOMED Code(s): 91247587 Code(s): I49.3 - VENTRICULAR PREMATURE DEPOLARIZATION Status: Chronic Annotation/Comment:: Previously known. Relatively well-controlled with current medical therapy. (8) Peptic reflux disease SNOMED Code(s): 408050987 Code(s): K21.9 - GASTRO-ESOPHAGEAL REFLUX DISEASE WITHOUT ESOPHAGITIS Status: Chronic Priority: Medium Annotation/Comment:: Stable by history with history of previous anemia. (9) Pyogenic granuloma SNOMED Code(s): 881338982 Code(s): L98.0 - PYOGENIC GRANULOMA Status: Chronic Priority: Medium Annotation/Comment:: Note pyogenic granuloma on the dorsal aspect of his right hand with ineffective recent cryotherapy. Discuss possible wide excision of this granuloma at the follow-up visit with his regular provider and/or customer care coordinator in order to prevent reoccurrence. Note previous history of basal cell carcinoma and squamous cell carcinoma as above. (10) Renal insufficiency SNOMED Code(s): 306572986, 816215806 Code(s): N28.9 - DISORDER OF KIDNEY AND URETER, UNSPECIFIED Status: Chronic Priority: High Annotation/Comment:: Stage IV diabetic nephropathy with the patient being closely watched for possible future dialysis. (11) Sleep apnea SNOMED Code(s): 02176387 Code(s): G47.30 - SLEEP APNEA, UNSPECIFIED Status: Chronic Priority: Medium Annotation/Comment:: He has been compliant with his CPAP therapy. Blood Pressures under good control with this procedure. Qualifiers: Sleep apnea type: unspecified type Qualified Code(s): G47.30 - Sleep apnea, unspecified (12) Squamous cell carcinoma SNOMED Code(s): 554663631 Code(s): VHA8513 - Status: Acute Priority: High Onset Date: 01/21/20 Annotation/Comment:: Incomplete excision with pathology report discussed with the patient. Further treatment per discretion of his customer care coordinator. (13) Anemia SNOMED Code(s): 367621199 Code(s): D64.9 - ANEMIA, UNSPECIFIED Status: Chronic Priority: High Annotation/Comment:: Progressive anemia likely secondary to his renal disease, etc.. Close follow-up by his regular provider as per discharge instructions. Further GI workup depending on his clinical course. Qualifiers: Anemia type: iron deficiency Iron deficiency anemia type: chronic blood loss Qualified Code(s): D50.0 - Iron deficiency anemia secondary to blood loss (chronic) - Problem List Review Problem List Initiated/Reviewed/Updated: Yes - My Orders Last 24 Hours: My Active Orders 01/24/20 08:53 Obtain Past Medical Record [OM.PC] Routine - Assessment/Plan Last 24 Hours: My Active Orders 01/24/20 08:53 Obtain Past Medical Record [OM.PC] Routine Assessment:: As above. Plan: As above. Extensive precautions were given to the patient, who is in agreement with the treatment plan. See Patient Instructions for further treatment and plan.
[2020-01-24] MEDS ORDERED: Bacitracin/Neomycin/Polymyxin B Oint 0.9 GM U/D Packet TOP ONE (09:07)
== END 2020-01-24 09:55 | disposition home or self-care (01) ==
LOC: LL.ED 08:35
DX: I48.91 Unspecified atrial fibrillation (principal); I25.10 Atherosclerotic heart disease of native coronary artery without angina pectoris; E78.5 Hyperlipidemia, unspecified; I13.10 Hypertensive heart and chronic kidney disease without heart failure, with stage 1 through stage 4 chronic kidney disease, or unspecified chronic kidney disease; E11.22 Type 2 diabetes mellitus with diabetic chronic kidney disease; N18.9 Chronic kidney disease, unspecified; D63.1 Anemia in chronic kidney disease; I49.3 Ventricular premature depolarization; L98.0 Pyogenic granuloma; G47.30 Sleep apnea, unspecified; K27.9 Peptic ulcer, site unspecified, unspecified as acute or chronic, without hemorrhage or perforation; L57.0 Actinic keratosis; M10.9 Gout, unspecified; C76.0 Malignant neoplasm of head, face and neck; Z88.8 Allergy status to other drugs, medicaments and biological substances; Z88.5 Allergy status to narcotic agent; Z79.899 Other long term (current) drug therapy; Z79.01 Long term (current) use of anticoagulants; Z79.82 Long term (current) use of aspirin; Z79.02 Long term (current) use of antithrombotics/antiplatelets; Z79.4 Long term (current) use of insulin
CPT/HCPCS: 36415; 85025; 85610; 99283

== ENCOUNTER 2020-02-14 00:11 | Emergency (ER) | payer MEDICARE, OTHER ==
[2020-02-14 00:18] VITALS: BP 157/75; PULSE 85
--- NOTE | 2020-02-14 00:35 | EDM.PDOC ---
ED HPI GENERAL MEDICAL PROBLEM - General Chief Complaint: Laceration Stated Complaint: lip bleeding Time Seen by Provider: 02/14/20 00:30 Source of Information: Reports: Patient, Family (), Old Records ([facility] chart/EMR), Other ([facility] EMR today. [facility] EMR reviewed on 07/09/18.) History Limitations: Reports: No Limitations - History of Present Illness INITIAL COMMENTS - FREE TEXT/NARRATIVE: The patient was brought to the emergency room via private automobile by his for bleeding from excision site of his lower lip. Note that his Coumadin was not held prior to the Moh's procedure on 02/12 at [facility] in [place]. His INR was 2.6 on 02/11 by his history, although the patient did take an extra dose of Tylenol this past evening. The bleeding has been refractory to pressure with moderate bleeding from excision site beginning at about 21:45 hours this evening. He denies any local injury, etc.. The patient denies any chest pain/pressure, heart flutter, dizziness, orthostasis, orthopnea, diaphoresis, paresthesias, recent decreased exercise tolerance, or any other anginal-type symptoms. No recent history of abdominal pain, heartburn, nausea, diarrhea, melena, gross hematochezia, or any food intolerance, including fatty foods, etc.. The patient also denies any recent fever, cough, wheezing, dyspnea, etc.. He denies any significant pain or discomfort. Onset: Today, Gradual Onset Date: 02/13/20 Onset Time: 21:45 Duration: Constant, Getting Worse Location: Reports: Face Quality: Reports: Same as Previous Episode Severity: Moderate (Bleeding) Improves with: Reports: None Worsens with: Reports: None Context: Reports: Other (As above) Associated Symptoms: Reports: No Other Symptoms. Denies: Confusion, Chest Pain, Cough, Diaphoresis, Fever/Chills, Headaches, Loss of Appetite, Malaise, Nausea/Vomiting, Rash, Shortness of Breath, Weakness Treatments AUTOMATIC CHIEF: Reports: Acetaminophen - Related Data Allergies Allergy/AdvReac Type Severity Reaction Status Date / Time hydromorphone [From Dilaudid] Allergy Other Verified 02/14/20 00:13 hydroxyzine [From Vistaril] Allergy UNKNOWN Verified 02/14/20 00:13 meperidine [From Demerol] Allergy UNKNOWN Verified 02/14/20 00:13 Home Meds: Home Meds Allopurinol [Zyloprim] 0.5 tab PO DAILY 05/04/16 [History] Rosuvastatin [Crestor] 0.5 tab PO BEDTIME 05/04/16 [History] Cholecalciferol (Vitamin D3) [Vitamin D3] 2,000 units PO DAILY 12/01/16 [History] Metoprolol Succinate [Toprol XL] 200 mg PO DAILY 01/22/17 [History] Ferrous Sulfate 325 mg PO TIDMEALS 01/17/18 [History] Acetaminophen [Tylenol Extra Strength] 1,000 mg PO BID 07/09/18 [History] Diltiazem [Dilacor XR] 240 mg PO DAILY 07/09/18 [History] Oxybutynin [Oxybutynin ER] 5 mg PO DAILY 07/09/18 [History] Warfarin [Coumadin] 2.5 mg PO DAILY@2200 07/09/18 [History] Bumetanide 1 mg PO BID 05/16/19 [History] cephALEXin [Cephalexin] 1 tab PO BID 05/16/19 [History] Clopidogrel [Plavix] 75 mg PO DAILY 01/24/20 [History] Insulin Glarg,Human.Rec.Analog [Lantus] 8 unit SQ DAILY 01/24/20 [History] Past Medical History HEENT History: Reports: Hard of Hearing, Impaired Vision, Other (See Below). Denies: Allergic Rhinitis, Glaucoma, Macular Degeneration, Retinal Detachment Other HEENT History: The patient wears glasses. 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 Cardiovascular History: Reports: Afib, Arrhythmia, CAD, Heart Murmur, High Cholesterol, Hypertension, PTCA, Stents. Denies: Aneurysm, Blood Clots/VTE/DVT, Bypass, Cardiomyopathy, Heart Failure, MT, PVD, Syncope Other Cardiovascular History: Cardiac catheterization on 11/27/19 showed 85% mid LAD stenosis with drug-eluting stent/PTCA conducted in this region at that time. Additional 60% stenosis of the second diagonal coronary artery branch and 20% stenosis of the right coronary artery. Echocardiogram in February 2019 indicated mild to moderate mitral valve insufficiency. Right atrial enlargement with moderate tricuspid valve insufficiency and mild to moderate mitral valve insufficiency also noted by echocardiogram. Mild aortic valve stenosis by clinical exam only. Chronic atrial fibrillation with current Coumadin therapy. PVCs. Bradycardia secondary to medications. Dyslipidemia. Respiratory History: Reports: Intubation, Previous, Sleep Apnea. Denies: Asthma, Bronchitis, Recurrent, COPD, Intubation, Difficult, PE, Pneumonia, Recurrent, Pneumothorax, TB Other Respiratory History: Patient has been compliant with his CPAP. Gastrointestinal History: Reports: Other (See Below). Denies: Celiac Disease, Cholelithiasis, Chronic Constipation, Chronic Diarrhea, Colon Polyp, Fecal Inco ntinence, Gastritis, GERD, GI Bleed, Hepatitis, Irritable Bowel Syndrome, Jaundice, Pancreatitis, PUD Other Gastrointestinal History: Umbilical hernia. Tubular adenoma excised via colonoscopy from the mid transverse colon on 05/16/19. History of diminutive colonic polyps of the proximal ascending colon on 01/31/13 with subsequent small tubular adenomas 2 one in the distal ascending colon and the other at the hepatic flexure on 05/05/16. History of colitis. Polyposis of the gallbladder diagnosed on 05/25/99. Benign hepatic cysts. Genitourinary History: Reports: BPH, Chronic Renal Insuffiency, Diabetic Nephropathy, Hydronephrosis, Prostate Disorder, Renal Disease. Denies: Acute Renal Failure, Renal Calculus, Retention, Urinary, STD, Urinary Incontinence, UTI, Recurrent Other Genitourinary History: Stage III/IV diabetic nephropathy/renal insufficiency with patient currently in a watch program for possible future di alysis. Large left retroperitoneal hematoma secondary to ruptured renal cyst from a fall on 09/16/17. Chronic prostatitis with hematuria, transitional cell cancer as below, diabetic nephropathy with proteinuria. Moderate bilateral benign polycystic renal disease including a stable large 16 cm thoracic renal cyst causing moderate left-sided hydronephrosis secondary to compression between the cyst and the abdominal aorta. No urolithiasis. Musculoskeletal History: Reports: Arthritis, Back Pain, Chronic, Fracture, Gout, Neck Pain, Chronic, Osteoarthritis. Denies: RA, SLE Other Musculoskeletal History: Spinal stenosis of lumbar region (L3-4), sternoclavicular joint subluxation (left) on 07/19/01, left ankle fracture at age 21, idiopathic myositis. Hyperuricemia Neurological History: Reports: Neuropathy, Diabetic, Neuropathy, Peripheral. Denies: Cerebral Aneurysms, Concussion, CVA, Headaches, Chronic, Head Trauma, Mi graines, MS, Parkinson's, Seizure, TIA Psychiatric History: Reports: None. Denies: Abuse, Victim of, ADD, ADHD, Addiction, Anxiety, Depression, Psych Hospitalization(s), Psychosis, PTSD, Suicide Attempt, Suicidal Ideation Endocrine/Metabolic History: Reports: Diabetes, Type II, IDDM, Obesity/BMI 30+, Vitamin D Deficiency. Denies: Diabetes, Type I, Diabetes Mellitus, Type 3c, Hypothyroidism Other Endocrine/Metabolic History: Hyperkalemia. Hematologic History: Reports: Anemia, Iron Deficiency. Denies: B12 Deficiency, Blood Transfusion(s) Other Hematologic History: Chronic anemia secondary to end-stage renal disease and Coumadin therapy with additional history of anemia secondary to large retroperitoneal hematoma in August 2017 as above. Immunologic History: Reports: Immunosuppression, Other (See Below). Denies: AIDS, HIV, SLE Other Immunologic History: Immunosuppression secondary to end-stage renal disease, diabetes, etc. Oncologic (Cancer) History: Reports: Basal Cell Carcinoma, Bladder, Squamous Cell Carcinoma, Other (See Below). Denies: Colon, Hodgkin's Lymphoma, Leukemia, Lymphoma, Malignant Melanoma, Non-Hodgkin's Lymphoma, Prostate Other Oncologic History: Basal cell carcinoma exsized from the helix of the right ear in 2014. 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 Transitional cell carcinoma diagnosed on 09/15/08. Dermatologic History: Reports: Venous Stasis Dermatitis, Other (See Below) Other Dermatologic History: Basal cell and squamous cell carcinoma as above. Seborrheic keratosis with actinic keratosis with multiple cryotherapies. - Infectious Disease History Infectious Disease History: Reports: Chicken Pox, Measles. 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 - Past Surgical History Head Surgeries/Procedures: Reports: None HEENT Surgical History: Reports: Adenoidectomy, Oral Surgery, Tonsillectomy, Other (See Below). Denies: Cataract Surgery, Eye Surgery, Laser Surgery, LASIK, Myringotomy w Tube(s), Naso-Sinus Surgery Other HEENT Surgeries/Procedures: Right upper dental implants. Multiple teeth extractions. Tonsillectomy and adenoidectomy as a child. Cardiovascular Surgical History: Reports: Coronary Artery Stent, Percutaneous Transluminal Angioplasty, Vascular Surgery, Other (See Below) Other Cardiovascular Surgeries/Procedures: PTCA/stent times one of the mid LAD on 11/27/19. Left arm AV fistula placement on 01/02/19. Respiratory Surgical History: Reports: None. Denies: Thoracentesis GI Surgical History: Reports: Appendectomy, Colonoscopy, Polypectomy, Other (See Below). Denies: Cholecystectomy, EGD, Hernia, Abdominal, Hernia, Inguinal, Hernia Repair/Other Other GI Surgeries/Procedures: Last colonoscopy on 05/16/19 with previous evaluations on 05/05/16 and 01/31/13 with multiple polypectomies as above. Appendectomy in 1971. Male Surgical History: Reports: None. Denies: Circumcision, TURP- Transurethral Resection of Prostate, Vasectomy Endocrine Surgical History: Reports: None Neurological Surgical History: Reports: Discectomy, Lumbar Spine, Other (See Below). Denies: C-Spine, Laminectomy, Sacral Spine, Spinal Fusion, Thoracic Spine Other Neurological Surgeries/Procedures: L3-L4 decompression on 02/04/14. Musculoskeletal Surgical History: Reports: Arthroscopic Knee, Joint Replacement, Knee Replacement, Shoulder Surgery, Other (See Below). Denies: Carpal Tunnel, Ganglion Cyst, ORIF Other Musculoskeletal Surgeries/Procedures:: Bilateral knee arthroscopic evaluations initially in September 1997 and then in June 1998. Subsequent bilateral total knee arthroplasties on 12/07/07 with additional subsequent complete two-stage left TKA revision in April 2009 secondary to refractory MSSA infection with repeat TKA and partial revision with irrigation of plastic components on 11/23/12. Additional left knee irrigation and debridement on 12/13/16. Initial arthroscopic and then conversion to open right shoulder rotator cuff repair on 08/18/03. Oncologic Surgical History: Reports: Other (See Below) Other Oncologic Surgeries/Procedures: Multiple cryotherapies of benign lesions as above. Incomplete excision of squamous cell carcinoma mid lower lip on 01/21/20 with subsequent Moh's of the lower lip on 02/13/20. Mohs procedure of the right helix region for excision of basal cell carcinoma on 05/28/15. Dermatological Surgical History: Reports: Skin Biopsy, Other (See Below) - Past Imaging History Past Imaging History: Reports: Angiography (Last Heart catheterization on 11/27/19 with results as above with previous evaluation on 01/31/18.), Cardiac Echo (Last echocardiogram on 03/21/19 with ejection fraction of 6570 percent with previous evaluations on 01/22/17 and 10/10/17. Transesophageal echocardiogram on 11/28/16 with previous echocardiogram in 11/22/16.), CAT Scan (CT of the abdomen and pelvis on 01/17/17, 03/27/18, 11/13/17, and 09/16/17.), Holter Monitor (02/05/18 and 12/14/17), Mammogram (10/01/09), PFT (Last PFTs including diffusion studies on 04/09/18.), Sleep Study (11/10/17.), Stress Testing (Low level cardiac stress test on 01/23/20. Negative Cardiolite stress test on 12/26/17.), Ultrasound (Bilateral arm ultrasound mapping for AV fistula placement on 12/26/18. Renal ultrasound on 09/28/17 and 09/18/17.), Venous Doppler (Left leg on 04/04/18.), Other (See Below) (IVP on 09/29/08.) Social & Family History - Family History HEENT: Reports: None. Denies: Glaucoma, Macular Degeneration, Retinal Detachment Cardiac: Reports: Arrhythmia, Bypass, CAD, High Cholesterol, Hypertension, MT, Other (See Below). Denies: Afib, Aneurysm, Blood Clots/VTE/DVT, Cardiomyopathy, Heart Failure, PVD/COD, Syncope Other Cardiac Family History: Father from an MT at age 69, mother with unknown type of cardiac arrhythmia, sister with CABG in her 60s, hypertension in sister, mother and sister with hyperlipidemia. Respiratory: Reports: None. Denies: Asthma, COPD, PE, Pneumothorax, Sleep Apnea GI: Reports: Colon Polyps, GERD, Other (See Below). Denies: Celiac Disease, Cholelithiasis, GI bleed, Inflammatory Bowel Disease, Irritable Bowel Syndrome, PUD Other GI Family History: Brother and sister with GERD. Brother with colon cancer as below. : Reports: Dialysis, Renal Disease/Insufficiency, Other (See Below) Other Family History: Sister and nephew with benign hematuria. Sister with renal failure requiring dialysis. OBGYN: Reports: None. Denies: Endometriosis, Recurrent Spontaneous Musculoskeletal: Reports: None. Denies: Arthritis, Gout, RA, SLE Neurological: Reports: None. Denies: Alzheimers Disease, Cerebral Aneurysms, CVA, Dementia, Migraines, MS, Parkinson's, Seizure, TIA Psychiatric: Reports: None. Denies: Abuse, Victim of, ADD, ADHD, Anxiety, Depression, Psych Hospitalization(s), PTSD, Suicide Attempt Endocrine/Metabolic: Reports: Diabetes, type II, IDDM, Other (See Below). Denies: Diabetes, Type I, Diabetes Mellitus, Type 3c, Hypothyroidism Other Endocrine/Metabolic Family History: Brother, mother and sister with IDDM, father parents with AODM. Hematologic: Reports: None. Denies: SLE Immunologic: Reports: None. Denies: AIDS, HIV, SLE Dermatologic: Reports: None. Denies: Eczema, Psoriasis Oncologic: Reports: Bone, Colon, Pancreatic, Other (See Below) Other Oncologic Family History: Maternal aunt with unknown type of fatal cancer possibly bone cancer in her 50s, maternal cousin with fatal stomach cancer in his 50s, brother with colon cancer at age 58. Half sister with fatal pancreatic cancer at age 84. Patient denies history of colon cancer in sister at age 52 despite [facility] records. - Tobacco Use Smoking Status *Q: Never Smoker Tobacco Use Within Last Twelve Months: No Used Tobacco, but Quit: No Smoking Cessation Information Provided To Patient: No Second Hand Smoke Exposure: No Second Hand Smoke Education Provided: No - Caffeine Use Caffeine Use: Reports: Soda (1 soda per week), Tea (2 glasses per day). Denies: Coffee, Energy Drinks - Alcohol Use Alcohol Use History: Yes Days Per Week of Alcohol Use: 0 Number of Drinks Per Day: 1 Number of Drinks Per Day Comment: Usually beer twice a month. No previous DWIs, problems with alcohol abuse, etc. 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 ED EXAM, SKIN/RASH Exam: See Below Exam Limited By: No Limitations General Appearance: Alert, WD/WN, No Apparent Distress Throat/Mouth: Normal Teeth, Normal Gums, Normal Oropharynx, Normal Voice, No Airway Compromise, Other (4 centimeter excision site in the lower lip with moderate bleeding from the right lateral border. Sutures in place with no local signs of infection or significant wound dehiscence.). No: Dysphagia, Perioral Cyanosis Head: Atraumatic, Normocephalic. No: Facial Swelling, Facial Tenderness, Sinus Tenderness Neck: Supple, Non-Tender, Full Range of Motion, Carotid Bruit (Mild bilateral carotid bruits versus transmitted heart sounds). No: Lymphadenopathy (L), Lymphadenopathy (R), Thyromegaly Respiratory/Chest: No Respiratory Distress, Lungs Clear, Normal Breath Sounds, No Accessory Muscle Use, Chest Non-Tender. No: Pleural Rub, Retractions Cardiovascular: Normal Peripheral Pulses, No Gallop, No JVD, No Rub, Systolic Murmur (Mild 1/6 ROMÁN of the mitral and aortic valves), Irregularly Irregular. No: No Edema (Attending edema as below), Diastolic Murmur, Gallop/S3, Gallop/S4, Friction Rub Peripheral Pulses: 2+: Radial (L), Radial (R) GI/Abdominal: Normal Bowel Sounds, Soft, Non-Tender, No Organomegaly, No Distention, No Abnormal Bruit, No Mass. No: Guarding (Male) Exam: Deferred Rectal (Males) Exam: Deferred Back Exam: Normal Inspection, Full Range of Motion. No: CVA Tenderness (L), CVA Tenderness (R), Muscle Spasm Extremities: Normal Range of Motion, Non-Tender, Normal Capillary Refill, Pedal Edema (Stable trace +1 bilateral pedal/pretibial edema), Other (Patent left arm AV fistula). No: Ana M's Sign Neurological: Alert, Oriented, CN II-XII Intact, Normal Cognition, Normal Gait, No Motor/Sensory Deficits Psychiatric: Normal Affect, Normal Mood Skin: Ecchymosis (Right forearm), Wound/Incision (Excision site lower lip as above). No: Diaphoretic Location, Skin: Face (Lower lip as above) Associated features: Tenderness (Mild localized), Swelling (Standard mild postoperative), Weeping (Blood from right excision site). No: Warmth, Lymphangitis Lymphatic: No Adenopathy ED SKIN PROCEDURES - Laceration/Wound Repair Right Lower Mouth Appearance: Subcutaneous Distal NVT: Neuro & Vascular Intact, No Tendon Injury Anesthetic Type: Local Local Anesthesia - Lidocaine (Xylocaine): 1% Plain Local Anesthetic Volume: 2cc Skin Prep: Providone-Iodine (Betadine) Saline Irrigation (cc's): 0 Closed with: Sutures Lac/Wound length In cm: 4 Suture Size: 5-0 # of Sutures: 2 Suture Type: Nylon, Interrupted, Simple Drain Placement: No Sterile Dressing Applied: None Tetanus Status Addressed: No Complications: No Progress/Comments: Note only 2 sutures placed at right lateral excision site for additional hemostasis. Course - Vital Signs Last Recorded V/S: Last Vital Signs Temp 36.2 C 02/14/20 00:18 Pulse 85 02/14/20 00:18 Resp 14 02/14/20 00:18 BP 157/75 H 02/14/20 00:18 Pulse Ox 98 02/14/20 00:18 Vital Signs - 24 hr 02/14/20 00:18 Temperature [ 36.2 C Temporal] Pulse, 85 Peripheral [ Right Pulse Oximetry] Respiratory 14 Rate Blood Pressure 157/75 H [Right Upper Arm] O2 Sat by Pulse 98 Oximetry - Orders/Labs/Meds Orders: Active Orders 24 hr Category Date Time Status Obtain Past Medical Record [OM.PC] Routine Oth 02/14/20 00:36 Active Labs: None Meds: Medications Discontinued Medications Generic Name Dose Route Start Last Admin Trade Name Freq PRN Reason Stop Dose Admin Lidocaine HCl 5 ml 02/14/20 00:35 02/14/20 00:50 Xylocaine-Mpf 1% INJECT 02/14/20 00:36 Not Given ONETIME ONE Lidocaine by provider as above - Radiology Interpretation Free Text/Narrative:: None Departure - Departure Time of Disposition: 01:20 Disposition: Home, Self-Care 01 Condition: Good Clinical Impression: IDDM (insulin dependent diabetes mellitus), Renal insufficiency, Squamous cell carcinoma Hypertension Qualifiers: Hypertension type: essential hypertension Qualified Code(s): I10 - Essential (primary) hypertension Atrial fibrillation Qualifiers: Atrial fibrillation type: longstanding persistent Qualified Code(s): I48.11 - Longstanding persistent atrial fibrillation Coronary artery disease Qualifiers: Coronary Disease-Associated Artery/Lesion type: [place] artery Elim [place] vs. transplanted heart: ch[place]koot heart Associated angina: without angina Qualified Code(s): I25.10 - Atherosclerotic heart disease of [place] coronary artery without angina pectoris - Discharge Information *PRESCRIPTION DRUG MONITORING PROGRAM REVIEWED*: Not Applicable *COPY OF PRESCRIPTION DRUG MONITORING REPORT IN PATIENT KAN: Not Applicable Referrals: Ricky Bailey PA [Primary Care Provider] - Forms: ED Department Discharge Additional Instructions: 1. 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 2. Call your real estate professor's office later today confirming my recommendation of stopping your aspirin on a long-term basis secondary to your current Plavix and warfarin therapy 3. Hold your warfarin and aspirin on 02/13 and/02/14 and then resume as before 4. No additional as needed Tylenol with no additional ibuprofen, Aleve, or other NSAIDs secondary to your warfarin therapy 5. Ice packs and pressure as needed, if bleeding recurs. You may also use the provided Surgicel as needed/directed 6. Immediately after this visit verify that your cellular telephone's voicemail has been activated and is empty. Also verify that your home telephone's answering machine is operating properly and has space to receive messages. Note that it is sometimes necessary for us to be able to contact you at a later date to discuss your medical care. 7. Please remember that we are ALWAYS here for you and want to answer any questions you may have. Feel free to call the hospital any time and we call you back SUZANNA. 8. Antibacterial soap wash/soak with subsequent antibacterial dressing such as Neosporin, etc. as directed 2 times per day until the wound or laceration site completely heals. Keep the area clean and dry with activity restrictions as discussed. Never use hydrogen peroxide for wound care. Sepsis Event Note (ED) - Evaluation Sepsis Screening Result: No Definite Risk - Focused Exam Vital Signs: Vital Signs Temp Pulse Resp BP Pulse Ox 02/14/20 00:18 36.2 C 85 14 157/75 H 98 - Problem List & Annotations (1) Squamous cell carcinoma SNOMED Code(s): 902227655 Code(s): TKU8995 - Status: Acute Priority: High Current Visit: Yes Onset Date: 01/21/20 Annotation/Comment:: Note Moh's procedure performed on the lower lip on 02/13/20 with [facility] EMR record reviewed today. Previous incomplete excision with pathology report from 01/21/20 once again discussed with the patient. Aspirin and warfarin are to be held as per discharge instructions with patient advised not to take any additional Tylenol, etc. as per discharge instructions. He did take an aggressive dose of Tylenol in the evening of 02/12. Secondary to recent INR this was not repeated today. Wound care instructions provided with patient also given some Surgicel in case of returned uncontrolled bleeding. Bleeding under good control with additional sutures as above. (2) Atrial fibrillation SNOMED Code(s): 52796701 Code(s): I48.91 - UNSPECIFIED ATRIAL FIBRILLATION Status: Acute Priority: High Current Visit: Yes Annotation/Comment:: INR 2.6 on 02/12/20 by patient history with his warfarin held on 02/12. Note concurrent aspirin, Plavix, and Coumadin therapy, which does seem somewhat excessive. I did recommend that he hold his aspirin on a long-term basis, however he will confirm this through his real estate professor's office later today as per discharge instructions. Continue to observe his INRs closely through his regular providers. Qualifiers: Atrial fibrillation type: longstanding persistent Qualified Code(s): I48.11 - Longstanding persistent atrial fibrillation (3) Coronary artery disease SNOMED Code(s): 16615098 Code(s): I25.10 - ATHSCL HEART DISEASE OF [place] CORONARY ARTERY W/O ANG PCTRS Status: Chronic Priority: High Current Visit: Yes Annotation/Comment:: No chest pain or anginal type symptoms. Note recent PTCA/stent as below. He will not go to cardiac rehabilitation later today, however resume thereafter. Patient does have a follow-up appointment with his real estate professor on 02/25/20 by their history. Qualifiers: Coronary Disease-Associated Artery/Lesion type: [place] artery [place]lim [place] vs. transplanted heart: ch[place] heart Associated angina: without angina Qualified Code(s): I25.10 - Atherosclerotic heart disease of [place] coronary artery without angina pectoris (4) Hypertension SNOMED Code(s): 45733306 Code(s): I10 - ESSENTIAL (PRIMARY) HYPERTENSION Status: Chronic Priority: Medium Current Visit: Yes Annotation/Comment:: Blood pressures have been under good control by history, although somewhat elevated today. Continue to observe closely by his regular provider, through cardiac rehabilitation, etc.. 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 (7) Dyslipidemia SNOMED Code(s): 258250833 Code(s): E78.5 - HYPERLIPIDEMIA, UNSPECIFIED Status: Chronic Priority: Medium Current Visit: Yes Annotation/Comment:: Known dyslipidemia currently under therapy - Problem List Review Problem List Initiated/Reviewed/Updated: Yes - My Orders Last 24 Hours: My Active Orders 02/14/20 00:36 Obtain Past Medical Record [OM.PC] Routine - Assessment/Plan Last 24 Hours: My Active Orders 02/14/20 00:36 Obtain Past Medical Record [OM.PC] Routine Assessment:: As above Plan: As above. Extensive precautions were given to the patient, who is in agreement with the treatment plan. See Patient Instructions for further treatment and plan.
== END 2020-02-14 01:20 | disposition home or self-care (01) ==
LOC: LL.ED 00:11
DX: I10 Essential (primary) hypertension (principal); I25.10 Atherosclerotic heart disease of native coronary artery without angina pectoris; I48.11 Longstanding persistent atrial fibrillation; E11.9 Type 2 diabetes mellitus without complications; N28.9 Disorder of kidney and ureter, unspecified; C44.92 Squamous cell carcinoma of skin, unspecified; E78.00 Pure hypercholesterolemia, unspecified; Z88.5 Allergy status to narcotic agent; Z88.8 Allergy status to other drugs, medicaments and biological substances; Z79.01 Long term (current) use of anticoagulants; Z79.899 Other long term (current) drug therapy
CPT/HCPCS: 12013; 99283; J2001; 12011

== ENCOUNTER 2023-01-12 12:59 | Inpatient (IN) | payer MEDICARE, OTHER ==
[2023-01-12 14:56] LABS: INR 3.1
[2023-01-12] MEDS ORDERED: Acetaminophen 325 MG Tab PO PRN (15:19)
[2023-01-12] MEDS ORDERED: [UNRECOGNIZED DRUG - OTHER] SCH (15:45)
[2023-01-12] MEDS ORDERED: Glucagon,Human Recombinant 1 MG Vial IM PRN ×2 (15:49→16:25)
[2023-01-12] MEDS ORDERED: traMADol 50 MG Tab PO PRN (15:49)
[2023-01-12] MEDS ORDERED: Cyclobenzaprine 10 MG Tab PO PRN (16:10)
[2023-01-12] MEDS ORDERED: 50% Dextrose in Water 50 ML Syringe IVPUSH PRN (16:25)
[2023-01-12] MEDS: Insulin Lispro 100 Units/ML 3 ML Vial SUBCUT SCH ×2 (17:46→21:12)
[2023-01-12] MEDS: Ascorbic Acid 500 MG Tab PO SCH (17:53)
[2023-01-12] MEDS: SEVELAMER CARBONATE 800 MG PO SCH (17:54)
[2023-01-12] MEDS ORDERED: Non-Formulary Medication 1 Each (Insulin Aspart 100 UNIT/ML Vial) SQ SCH (18:00)
[2023-01-13 07:17] LABS: INR 1.8
[2023-01-13] MEDS: Insulin Glarg,Human.Rec.Analog 100 Unit/ML SUBCUT SCH (07:31)
[2023-01-13] MEDS: Aspirin 81 MG Tab.Chew PO SCH (07:32)
[2023-01-13] MEDS: Polyethylene Glycol 3350 Powder 17 GM Packet PO SCH (07:32)
[2023-01-13] MEDS: Ascorbic Acid 500 MG Tab PO SCH ×2 (07:33→17:37)
[2023-01-13] MEDS: Folic Acid 1 MG Tab PO SCH (07:34)
[2023-01-13] MEDS: Metoprolol Succinate 50 MG Tab.ER PO SCH (07:34)
[2023-01-13] MEDS: Docusate Sodium 100 MG Cap PO SCH (07:34)
[2023-01-13] MEDS: Cholecalciferol (Vitamin D3) 25 MCG Tab PO SCH (07:34)
[2023-01-13] MEDS: Allopurinol 100 MG Tab PO SCH (07:34)
[2023-01-13] MEDS: SEVELAMER CARBONATE 800 MG PO SCH ×3 (07:34→17:37)
[2023-01-13] MEDS ORDERED: DAPTOmycin 500 MG Vial IV SCH (08:00)
[2023-01-13] MEDS: GENTAMICIN TOP SCH (08:25)
[2023-01-13] MEDS ORDERED: Heparin Sodium 10 Units/ML 5 ML Syringe FLUSH PRN (08:28)
[2023-01-13] MEDS ORDERED: DAPTOmycin 500 MG in Sodium Chloride 0.9% 100 ML IV SCH (09:00)
[2023-01-13] MEDS ORDERED: SODIUM CHLORIDE FLUSH SCH ×2 (09:00→09:30)
[2023-01-13] MEDS ORDERED: Sodium Chloride 0.9% 10 ML Syringe FLUSH PRN (10:08)
[2023-01-13] MEDS: Insulin Lispro 100 Units/ML 3 ML Vial SUBCUT SCH ×3 (10:08→17:37)
[2023-01-13] MEDS ORDERED: Ondansetron 4 MG Tab.DIS PO PRN (17:09)
[2023-01-13] MEDS ORDERED: Warfarin 2.5 MG Tab PO SCH ×2 (18:00)
[2023-01-14] MEDS: Insulin Lispro 100 Units/ML 3 ML Vial SUBCUT SCH ×5 (06:06→21:38)
[2023-01-14] MEDS: Insulin Glarg,Human.Rec.Analog 100 Unit/ML SUBCUT SCH (07:44)
[2023-01-14] MEDS: Folic Acid 1 MG Tab PO SCH (07:45)
[2023-01-14] MEDS: SEVELAMER CARBONATE 800 MG PO SCH ×3 (07:45→16:59)
[2023-01-14] MEDS: Polyethylene Glycol 3350 Powder 17 GM Packet PO SCH (07:45)
[2023-01-14] MEDS: Aspirin 81 MG Tab.Chew PO SCH (07:45)
[2023-01-14] MEDS: Ascorbic Acid 500 MG Tab PO SCH ×2 (07:45→16:59)
[2023-01-14] MEDS: Allopurinol 100 MG Tab PO SCH (07:46)
[2023-01-14] MEDS: Metoprolol Succinate 50 MG Tab.ER PO SCH (07:46)
[2023-01-14] MEDS: Cholecalciferol (Vitamin D3) 25 MCG Tab PO SCH (07:46)
[2023-01-14] MEDS: Docusate Sodium 100 MG Cap PO SCH (07:46)
[2023-01-14] MEDS ORDERED: Sodium Chloride 0.9% 10 ML Syringe FLUSH SCH (08:00)
[2023-01-14 08:54] LABS: INR 1.5
[2023-01-14] MEDS: GENTAMICIN TOP SCH (11:31)
[2023-01-14] MEDS ORDERED: Warfarin 2.5 MG Tab PO SCH (18:00)
[2023-01-14 21:43] VITALS: BP 114/56; PULSE 97
== END 2023-01-14 22:28 | DRG 559 ==
LOC: LL.MS 12:59
PROVIDERS: ADMIT Physician Assistant; ATTEND Physician Assistant
DX: Z47.1 Aftercare following joint replacement surgery (principal); N18.6 End stage renal disease; I48.11 Longstanding persistent atrial fibrillation; N25.81 Secondary hyperparathyroidism of renal origin; I50.30 Unspecified diastolic (congestive) heart failure; I13.2 Hypertensive heart and chronic kidney disease with heart failure and with stage 5 chronic kidney disease, or end stage renal disease; M00.062 Staphylococcal arthritis, left knee; R40.4 Transient alteration of awareness; I25.10 Atherosclerotic heart disease of native coronary artery without angina pectoris; E78.00 Pure hypercholesterolemia, unspecified; E11.21 Type 2 diabetes mellitus with diabetic nephropathy; E11.22 Type 2 diabetes mellitus with diabetic chronic kidney disease; E11.42 Type 2 diabetes mellitus with diabetic polyneuropathy; E66.9 Obesity, unspecified; D63.1 Anemia in chronic kidney disease; E54 Ascorbic acid deficiency; Z96.651 Presence of right artificial knee joint; K21.9 Gastro-esophageal reflux disease without esophagitis; E55.9 Vitamin D deficiency, unspecified; G47.33 Obstructive sleep apnea (adult) (pediatric); Z88.8 Allergy status to other drugs, medicaments and biological substances; Z79.82 Long term (current) use of aspirin; Z79.4 Long term (current) use of insulin; Z79.899 Other long term (current) drug therapy; Z79.01 Long term (current) use of anticoagulants; Z95.5 Presence of coronary angioplasty implant and graft; Z90.89 Acquired absence of other organs; Z98.890 Other specified postprocedural states; Z90.49 Acquired absence of other specified parts of digestive tract; Z99.2 Dependence on renal dialysis
CPT/HCPCS: 36415; 36416; 82947; 85610; 97110-GP; 97162-GP; 97165-GO; 97530-GP; 99306; 99316; A9270-GY; J0878; J1642; J1815-GY; J3490